=== PATIENT | female | born 1995 | race Caucasian/White ===

== ENCOUNTER → 2023-10-23 | Outpatient (CLI) | payer SELFPAY ==
[2023-10-27 20:55] LABS: HPV Reflexed? NOT INDICATED
== END | disposition home or self-care (01) ==
LOC: LABSPEC 10:33
PROVIDERS: Referring Provider Advanced Practice Midwife; Visit Provider Advanced Practice Midwife
DX: Z12.4 Encounter for screening for malignant neoplasm of cervix (principal)
CPT/HCPCS: 88175; G0145

== ENCOUNTER → 2024-04-10 | Outpatient (CLI) | payer SELFPAY | END | disposition home or self-care (01) | PROVIDERS: Visit Provider Nurse Practitioner Family | DX: N30.00 Acute cystitis without hematuria (principal) | CPT/HCPCS: 87086; 87088 ==

== ENCOUNTER → 2024-11-01 | Outpatient (CLI) | payer SELFPAY ==
[2024-11-01 11:13] LABS: Absolute Neutrophil Count 4.7 X10^3/uL (2.0-7.7); Basophil# 0.04 X10^3/uL; Basophil% 0.6 % (0-1); Eosinophil# 0.16 X10^3/uL; Eosinophils% 2.4 % (0-5); Hematocrit 38.8 % (37-47); Hemoglobin 11.5 g/dL (12.0-15.0); Lymphocyte % 20.7 % (19-41); Mean Corp Hgb Conc 29.6 g/dL (32-36); Mean Corpuscular Volume 77.8 fL (81-99); Monocyte# 0.43 X10^3/uL; Monocyte% 6.4 % (0-10); NRBC Flagged by Analyzer 0 % (0-5); Neutrophil # 4.71 X10^3/uL (2.7-7.7); Neutrophil % 69.6 % (47-70); Platelet Count 271 K/mm3 (150-450); RBC Distribution Width CV 15.1 % (11.6-14.6); RBC Distribution Width SD 42.7 fl (35.1-43.9); Red Blood Count 4.99 M/mm3 (4.2-5.4); White Blood Count 6.8 K/mm3 (4.4-11.0)
[2024-11-02 08:11] LABS: PROGESTERONE 6.9 ng/mL (.)
== END | disposition home or self-care (01) ==
LOC: BWCLAB 10:40
PROVIDERS: Referring Provider Nurse Practitioner Women's Health; Visit Provider Nurse Practitioner Women's Health
DX: N97.0 Female infertility associated with anovulation (principal)
CPT/HCPCS: 36415; 84144; 84443; 85025

== ENCOUNTER → 2024-11-10 | Outpatient (CLI) | payer SELFPAY ==
[2024-11-11 08:10] LABS: Thyroid Peroxidase AB 10 IU/mL (0-34)
== END | disposition home or self-care (01) ==
LOC: BWCLAB 10:38
PROVIDERS: PCP Internal Medicine; Referring Provider Nurse Practitioner Women's Health; Visit Provider Nurse Practitioner Women's Health
DX: N97.0 Female infertility associated with anovulation (principal)
CPT/HCPCS: 36415; 84439; 86376

== ENCOUNTER → 2024-11-17 | Outpatient (CLI) | payer SELFPAY ==
--- NOTE | 2024-11-17 14:17 | US_ITS ---
STUDY: ULTRASOUND OF THE FEMALE PELVIS - COMPLETE REASON FOR EXAM: Female, 28 years old. anovulation LMP: 11/08/2024 TECHNIQUE: Transabdominal and Transvaginal TECHNICAL QUALITY: Adequate. COMPARISON: None. FINDINGS: The uterus is retroverted and is in a midline position. The uterus measures 9.1 x 4.4 x 4.5 cm. Normal uterine cervix. The endometrium measures 13 mm in thickness, and is hyperechoic. There is no demonstrated endometrial mass. There is no demonstrated myometrial mass. I.U.D. - The patient does not have an I.U.D. The right ovary is visualized. The right ovary measures 3.6 x 2.5 x 2.1 cm. There is no right ovarian cyst or ovarian mass. There is no visualized right adnexal mass or complex lesion. There is normal arterial and normal venous vascularity. The left ovary is visualized. The left ovary measures 4.9 x 2.2 x 1.6 cm. There is no left ovarian cyst or ovarian mass. There is no visualized left adnexal mass or complex lesion. There is normal arterial and normal venous vascularity. There is no fluid in the cul-de-sac. The pre void volume of the bladder was ml. The post void volume of the bladder was ml. Polycystic ovary disease: No. US/Pelvic w/ Transvaginal IMPRESSION: Normal female pelvis. Electronically Signed: Prosper Weinstein MD at 15:00 EST ,
== END | disposition home or self-care (01) ==
LOC: US 14:16
PROVIDERS: PCP Internal Medicine; Referring Provider Nurse Practitioner Women's Health; Visit Provider Nurse Practitioner Women's Health
DX: N97.0 Female infertility associated with anovulation (principal)
CPT/HCPCS: 76830; 76856

== ENCOUNTER → 2025-01-17 | Outpatient (CLI) | payer SELFPAY ==
[2025-01-19 12:08] LABS: PROGESTERONE 12.4 ng/mL (.)
== END | disposition home or self-care (01) ==
PROVIDERS: PCP Internal Medicine; Referring Provider Nurse Practitioner Women's Health; Visit Provider Nurse Practitioner Women's Health
DX: N97.0 Female infertility associated with anovulation (principal)
CPT/HCPCS: 36415; 84144

== ENCOUNTER → 2025-02-13 | Outpatient (CLI) | payer SELFPAY ==
[2025-02-14 04:07] LABS: PROGESTERONE 13.5 ng/mL (.)
== END | disposition home or self-care (01) ==
PROVIDERS: PCP Internal Medicine; Referring Provider Nurse Practitioner Women's Health; Visit Provider Nurse Practitioner Women's Health
DX: N97.0 Female infertility associated with anovulation (principal)
CPT/HCPCS: 36415; 84144

== ENCOUNTER → 2025-03-10 | Outpatient (CLI) | payer SELFPAY ==
[2025-03-11 08:08] LABS: PROGESTERONE 10.1 ng/mL (.)
== END | disposition home or self-care (01) ==
LOC: BWCLAB 10:07
PROVIDERS: PCP Internal Medicine; Referring Provider Nurse Practitioner Women's Health; Visit Provider Nurse Practitioner Women's Health
DX: N97.0 Female infertility associated with anovulation (principal)
CPT/HCPCS: 36415; 84144

== ENCOUNTER → 2025-04-06 | Outpatient (CLI) | payer SELFPAY ==
[2025-04-06 15:55] LABS: HIV Nonreactive (Nonreactive); Hepatitis B Surface Antigen Nonreactive (Nonreactive); Rubella IgG REAC (Nonreactive); Syphilis Antibodies Nonreactive (Nonreactive)
[2025-04-09 21:06] LABS: HCV Quant. RNA PCR HCV Not Detected IU/mL (.); V-Zoster IgG (Immunity) Reactive (Non Reactive)
== END | disposition home or self-care (01) ==
LOC: LAB 13:54
PROVIDERS: PCP Internal Medicine; Referring Provider Obstetrics & Gynecology Reproductive Endocrinology; Visit Provider Obstetrics & Gynecology Reproductive Endocrinology
DX: Z00.00 Encounter for general adult medical examination without abnormal findings (principal); Z13.29 Encounter for screening for other suspected endocrine disorder; Z11.3 Encounter for screening for infections with a predominantly sexual mode of transmission; N96 Recurrent pregnancy loss; Z13.79 Encounter for other screening for genetic and chromosomal anomalies; Z11.59 Encounter for screening for other viral diseases
CPT/HCPCS: 36415; 84443; 86703; 86762; 86780; 86787; 86900; 86901; 87340; 87491; 87522; 87591

== ENCOUNTER 2025-09-01 20:19 | Day surgery (SDC) | payer SELFPAY ==
[2025-09-01 20:21] VITALS: BP 161/95; PULSE 119; RESP 22; TEMP 36.1; O2SAT 100; BMI 23.8
--- NOTE | 2025-09-01 20:25 | US_ITS ---
PROCEDURE: TRANSVAGINAL W/PREG US 09/01/2025 REASON FOR EXAM: VAG BLEEDING FIRST TRIMESTER TECHNIQUE: Procedure Code: USTVAGP Modality: US Procedure: TRANSVAGINAL W/PREG US COMPARISON: None available. FINDINGS Anteverted uterus appears normal in size and smooth in contour, measuring 9.2 x 5.4 x 4.3 cm. No discrete uterine myoma is seen. Arcuate versus septate uterine morphology. Endometrial stripe complex appears within normal limits measuring up to 1.6 cm. No intrauterine gestational sac or sac-like structure is seen to confirm an IUP. The cervix is closed. Left ovary has a normal sonographic appearance. The right ovary appears normal, however there is a large complex partially cystic and solid echogenic mass in the right adnexal region, which measures approximately up to 9.6 x 5.3 x 2.5 cm. Small amount of nonspecific free fluid in the cul-de-sac. US/Transvaginal w/Preg US IMPRESSION: No intrauterine gestational sac or sac-like structure to confirm an IUP. There is probable arcuate versus septate uterine morphology. There is a large heterogeneous partially solid and cystic right adnexal mass, w hich appears separate from the ovary. Findings are suspicious for ectopic , given the absence of an IUP. Recommend clinical correlation with serum beta HCG level, and Public Defender consultati on. Reading Location: [id number]
[2025-09-01 20:46] LABS: Hematocrit 35.2 % (37-47); Hemoglobin 12.1 g/dL (12.0-15.0); Immature Granulocytes Count 0.050 X10^3/uL (0.0-0.0); Mean Corp Hgb Conc 34.4 g/dL (32-36); Mean Corpuscular Volume 88.2 fL (81-99); Mean Platelet Vol. 10.6 fl (6.2-12.0); NRBC Flagged by Analyzer 0 % (0-5); Platelet Count 255 K/mm3 (150-450); RBC Distribution Width CV 12.4 % (11.6-14.6); RBC Distribution Width SD 40.0 fl (35.1-43.9); Red Blood Count 3.99 M/mm3 (4.2-5.4); White Blood Count 12.2 K/mm3 (4.4-11.0)
[2025-09-01 21:01] LABS: Internal QC Validated? YES +Cl - CLEAR BKGD; Record Kit Lot#, Serum Preg. 980607
[2025-09-01 21:03] LABS: Pregnancy, Serum, hCG Quali. POSITIVE Negative
[2025-09-01 21:06] LABS: AST(SGOT) 20 U/L (<=31); Alanine Aminotransfer ALT/SGPT 17 U/L (<=34); Albumin, Serum 5.0 g/dL (3.5-5.0); Alkaline Phosphatase 59 U/L (35-104); Anion Gap 14 (5-15); BUN 11 mg/dL (4-19); BUN/Creat Ratio 18.1 RATIO (10-20); Calcium,Total 9.4 mg/dL (7.6-11.0); Carbon Dioxide 22.4 mmol/L (21.0-32.0); Chloride 100 mmol/L (98-108); Estimated Creatinine Clearance 115.39 ml/min (50-250); Globulin 2.9 g/dL (2.2-4.2); Glucose 124 mg/dL (70-99); Potassium 3.6 mmol/L (3.3-5.1)
--- NOTE | 2025-09-01 21:07 | EDS_ITS ---
HPI HPI - Female History of Present Illness Chief Complaint: Vag Bld, Preg Narrative Narrative: Patient is a 29-year-old female with past medical history of anemia who presents to the emergency department the chief complaint of abdominal pain. Patient states that for the last week she has been dealing with a miscarriage which she states that her last hCG quant was around 605 she is following with TRANSIT CLERK about this. She states that the pain had been progressively worsening prompting her to come here for further evaluation management she states that she originally had worsening abdominal pain in the upper portion of her abdomen and now it is in the lower portion. Patient denies any sick contacts. [facility] Medical History Anemia Home Medications ?Medication ?Instructions ?Recorded ?Last Taken ?Type ferrous sulfate 325 mg (65 mg 150 mg PO DAILY 10/23/23 Unknown History iron) tablet (Feosol) dapsone 6 %-spironolactone 5 applic topical 11/01/24 U nknown History %-niacinamide 2 % topical cream mv-mn no.97-folic 180 mcg-dha 25 1 tab PO BID 11/01/24 Unknown History mg-herb no.293 25 mg chewable tablet (Alive Daily Support ) letrozole 2.5 mg tablet 5 mg (2 x 2.5 mg) PO DAILY # 10 tabs 02/20/25 Unknown Rx Allergy/AdvReac Type Severity Reaction Status Date / Time amoxicillin (From Augmentin) Allergy Mild Hives Verified 09/01/25 20:21 clavulanic acid (From Allergy Mild Hives Verified 09/01/25 20:21 Augmentin) Family History Grandmother Skin cancer Grandfather Skin cancer CVA (cerebral vascular accident) Father CVA (cerebral vascular accident) Hypertension Brother Hypertension Social History adopted: No household members: spouse housing: house current occupational status: employed 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 occupational exposures/hazards: Yes pets and animals: Yes pets and animals: cat(s) and dog(s) history of recent travel: No sexually active: Yes Smoking Status: Never smoker alcohol intake: current details: socially substance use type: does not use diet: gluten free caffeine: Yes deanna/sabianism: Mosque seatbelt use: always do you feel safe at home: Yes 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/[employer] ROS ROS ED ROS Narrative Constitutional: Denies any fevers, chills, headaches Eyes: Denies double vision blurry vision changes vision Cardiovascular: Denies chest pain Respiratory: Denies shortness of breath Abdomen: Complains of abdominal pain as noted above Neurological: Denies numbness, weakness, tingling Musculoskeletal: Denies back pain Skin: Denies any rashes or lesions EXAM Physical Exam Narrative Exam Narrative: General: Patient was lying in bed rest comfortably did not appear to be acute distress Head: Atraumatic, normocephalic Eyes: PERRL bilaterally, EOMI bilaterally, no conjunctival injection noted Neck: Soft, supple, trachea midline Cardiovascular: Patient tachycardic with a regular rhythm Respiratory: Clear to auscultation bilaterally Abdomen: Soft, nondistended, diffuse tenderness to palpation Extremities: +5/5 strength noted in the bilateral upper and lower extremities Neurological: Patient following commands knew that she was at [facility] year is 2024 Skin: Warm, dry, intact no rashes or lesions noted Const Vital Signs: 09/01/25 20:21 09/01/25 21:20 09/01/25 21:23 Temperature 96.9 F L 98 F 98.2 F Temperature Source Temporal Oral Oral Pulse Rate 119 H 86 83 Respiratory Rate 22 H 16 19 H Blood Pressure 161/95 H 124/90 H 131/84 H Blood Pressure Mean 117 101 99 Pulse Ox 100 99 1 Oxygen Delivery Method Room Air Room Air 09/01/25 22:00 09/01/25 23:00 09/02/25 00:00 Temperature 97.8 F 99.1 F Temperature Source Oral Oral Pulse Rate 88 90 85 Respiratory Rate 17 18 16 Blood Pressure 118/80 115/67 117/57 L Blood Pressure Mean 92 83 77 Pulse Ox 100 98 97 Oxygen Delivery Method Room Air Room Air Room Air MDM MDM MDM Narrative Medical decision making narrative: Patient is a 29-year-old female who presents to the emergency department the chief complaint of abdominal pain. On the differential diagnosis includes but not limited to ectopic , endometritis, appendicitis, cholecystitis, pancreatitis. Once the workup is obtained and reviewed she will be reevaluated. Patient be given IV fluids Zofran morphine. Patient CBC reviewed and showed a leukocytosis of 12,000, hemoglobin 12.1, plate count 255. Patient sodium is 136, potassium low at 3.6, creatinine 0.61. Patient lactic acid normal at less than 1, AST and ALT were 20 and 17 respectively. Patient's hCG quant was 390 with positive urinalysis reviewed showed no evidence of infection. Patient's transvaginal ultrasound was reviewed and showed no intrauterine gestational sac or saclike structure to confirm an IUP. There is probable arcuate versus septate uterine morphology. There is a large heterogeneous partially solid and cystic right adnexal mass which appears to be separate from the ovary findings suspicious for ectopic . Paged TRANSIT CLERK physician Dr. Logan who is currently in a TRANSIT CLERK emergency and she states that she will call back when she is done with the case. This will be signed out to overnight provider to discuss with her and follow-up on ultimate disposition see note for addendum details Lab Data Labs: Laboratory Results - last 24 hr 09/01/25 09/01/25 09/01/25 20:37 20:55 21:46 WBC 12.2 H RBC 3.99 L Hgb 12.1 Hct 35.2 L MCV 88.2 MCH 30.3 MCHC 34.4 RDW Std Deviation 40.0 RDW Coeff of Jayson 12.4 Plt Count 255 MPV 10.6 Immature Gran % (Auto) 0.400 Neut % (Auto) 80.0 H Lymph % (Auto) 13.6 L Barton % (Auto) 4.7 Eos % (Auto) 1.1 Baso % (Auto) 0.2 Absolute Neuts (auto) 9.7 H Absolute Lymphs (auto) 1.66 Nucleated RBC % 0 Sodium 136 Potassium 3.6 Chloride 100 Carbon Dioxide 22.4 Anion Gap 14 BUN 11 Creatinine 0.61 L Estim Creat Clear Calc 115.39 Est GFR (MDRD) Non-Af 122 BUN/Creatinine Ratio 18.1 Glucose 124 H Lactic Acid < 1.0 Calcium 9.4 Total Bilirubin 0.48 AST 20 ALT 17 Alkaline Phosphatase 59 Total Protein 7.9 Albumin 5.0 Globulin 2.9 Albumin/Globulin Ratio 1.7 HCG, Quant 390 H Serum , Qual POSITIVE Urine Color Straw Urine Clarity Clear Urine pH 6.0 Ur Specific [place] 1.010 Urine Protein 15 H Urine Glucose (UA) Normal Urine Ketones 15 H Urine Occult Blood 50 H Urine Nitrite Negative Urine Bilirubin Negative Urine Urobilinogen Normal Ur Leukocyte Esterase Negative Urine RBC 0-5 SEEN Urine WBC 0-5 SEEN Ur Squamous Epith Cells 0-5 SEEN Ur Transition Epith Cell 0-5 SEEN Urine Bacteria 0 SEEN Urine Mucus 0 SEEN Radiography Diagnostic Testing: Clinical Impression(s) from Imaging Studies Obstetrics Ultrasound 09/01/25 20:25 IMPRESSION: No intrauterine gestational sac or sac-like structure to confirm an IUP. There is probable arcuate versus septate uterine morphology. There is a large heterogeneous partially solid and cystic right adnexal mass, which appears separate from the ovary. Findings are suspicious for ectopic , given the absence of an IUP. Recommend clinical correlation with serum beta HCG level, and Banquet Food Server consultation. Reading Location: [facility] Discharge Plan Triage Chief Complaint: Vag Bld, Preg ED Provider: Dilshad Jones Dx/Rx/DC Orders Clinical Impression: Abdominal pain, History of anemia Prescriptions: No Action ferrous sulfate [Feosol] 325 mg (65 mg iron) tablet 150 mg PO DAILY Alive Daily Support 180 mcg-25 mg- 25 mg tablet,chewable 1 tab PO BID [id number] 6-5-2 % cream topical letrozole 2.5 mg tablet 5 mg PO DAILY Qty: 10 0RF Rx Instructions: Take cycle days 3-7 Primary Care Provider: Dania Whitfield Referrals: Dania Whitfield DO [Primary Care Provider, Internal Medicine] Print Language: Barbadian
[2025-09-01 21:12] LABS: Mucous, Urine 0 SEEN /hpf (<or=2+)
[2025-09-01 21:20] VITALS: BP 124/90; PULSE 86; RESP 16; TEMP 36.6; O2SAT 99
[2025-09-01 21:23] VITALS: BP 131/84; PULSE 83; RESP 19; TEMP 36.8; O2SAT 1
[2025-09-01] MEDS: 0.9% Normal Saline (1000mL) 1,000 ML 999 ML IV ×2 (21:45→23:12)
[2025-09-01 21:46] LABS: Color, Urine Straw (Yellow); Glucose, Dipstick Normal (Normal); Ketone-Dipstick 15 mg/dl (Negative); Leukocyte Esterase-Dipstick Negative /ul (Negative); Nitrite-Dipstick Negative (Negative); Occult Blood-Urine 50 /ul (Negative); Protein-Dipstick 15 mg/dl (Negative); Specific Gravity, Urine 1.010 (1.002-1.030); Urine Bilirubin Dipstick Negative (Negative)
[2025-09-01 22:00] VITALS: BP 118/80; PULSE 88; RESP 17; TEMP 36.6; O2SAT 100
[2025-09-01 22:28] LABS: hCG Titer Quant., Serum 390 mIU/mL (<9 non-preg)
[2025-09-01 22:30] LABS: Red Blood Cells-Urine 0-5 SEEN /hpf (0-5); Squamous Epithelial Cells - UA 0-5 SEEN /hpf (5-10); Transitional Epithelial - Ur 0-5 SEEN /hpf (0-5)
[2025-09-01 23:00] VITALS: BP 115/67; PULSE 90; RESP 18; TEMP 37.3; O2SAT 98
[2025-09-02] VITALS (17 sets, daily range): BP systolic 109–136; BP diastolic 57–89; PULSE 75–106; RESP 15–18; TEMP 37–37.7; O2SAT 93–100; BMI 23.8; BMI 24.7
--- NOTE | 2025-09-02 02:29 | ED.RN ---
report called to ac. pt xferred to or
--- NOTE | 2025-09-02 02:31 | HP.PCM.OB_ITS ---
HPI - General HPI Narrative MECCA FRANKLIN, is a 29 y/o @ unknown gestational age who presents to [facility] ER with vaginal bleeding and a home positive test. She has been seeing an [facility] doctor and has tried IUI and clomid. This she states was spontaneous. She did have an HSG that was normal earlier this year . Ultrasound shows the following: FINDINGS Anteverted uterus appears normal in size and smooth in contour, measuring 9.2 x 5.4 x 4.3 cm. No discrete uterine myoma is seen. Arcuate versus septate uterine morphology. Endometrial stripe complex appears within normal limits measuring up to 1.6 cm. No intrauterine gestational sac or sac-like structure is seen to confirm an IUP. The cervix is closed. Left ovary has a normal sonographic appearance. The right ovary appears normal, however there is a large complex partially cystic and solid echogenic mass in the right adnexal region, which measures approximately up to 9.6 x 5.3 x 2.5 cm. Small amount of nonspecific free fluid in the cul-de-sac. US/Transvaginal w/Preg US IMPRESSION: No intrauterine gestational sac or sac-like structure to confirm an IUP. There is probable arcuate versus septate uterine morphology. There is a large heterogeneous partially solid and cystic right adnexal mass, which appears separate from the ovary. Findings are suspicious for ectopic , given the absence of an IUP. Recommend clinical correlation with serum beta HCG level, and Curriculum And Assessment Coordinator consultation. [facility] Medical History Anemia Home Medications ?Medication ?Instructions ?Recorded ?Last Taken ?Type ferrous sulfate 325 mg (65 mg 150 mg PO DAILY 10/23/23 Unknown History iron) tablet (Feosol) dapsone 6 %-spironolactone 5 applic topical 11/01/24 U nknown History %-niacinamide 2 % topical cream mv-mn no.97-folic 180 mcg-dha 25 1 tab PO BID 11/01/24 Unknown History mg-herb no.293 25 mg chewable tablet (Alive Daily Support ) letrozole 2.5 mg tablet 5 mg (2 x 2.5 mg) PO DAILY # 10 tabs 02/20/25 Unknown Rx Allergy/AdvReac Type Severity Reaction Status Date / Time amoxicillin (From Augmentin) Allergy Mild Hives Verified 09/01/25 20:21 clavulanic acid (From Allergy Mild Hives Verified 09/01/25 20:21 Augmentin) Family History Grandmother Skin cancer Grandfather Skin cancer CVA (cerebral vascular accident) Father CVA (cerebral vascular accident) Hypertension Brother Hypertension Social History adopted: No household members: spouse housing: house current occupational status: employed 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 occupational 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/hazards: Yes pets and animals: Yes pets and animals: cat(s) and dog(s) history of recent travel: No sexually active: Yes Smoking Status: Never smoker alcohol intake: current details: socially substance use type: does not use diet: gluten free caffeine: Yes deanna/islam: Rastafarian seatbelt use: always do you feel safe at home: Yes 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 Constitutional Constitutional: Denies change in weight, fatigue, fever(s), headache(s), poor appetite or weakness Eyes Eyes: Denies blurry vision, change in vision, seeing flashes or spots in vision ENT HEENT: Denies dizziness, headache(s), loss taste/smell or sore throat Cardiovascular Cardiovascular: Denies chest pain, dizziness, dyspnea, irregular heart rhythm, leg edema, palpitations or vomiting Respiratory/Chest Respiratory/Chest: Denies chest tightness, cough, dyspnea or breast pain Gastrointestinal Gastrointestinal: Denies anorexia, constipation, cramping, diarrhea, hemorrhoids, vomiting or weight changes Genitourinary Genitourinary: Denies dysuria, flank pain, genital lesions, urinary frequency or urinary urgency Musculoskeletal Musculoskeletal: Denies back pain, difficulty walking, joint pain, limited range of motion, muscle cramps or numbness Integumentary Integumentary: Denies lesions or unusual bruising Neurologic Neurologic: Denies abnormal movements, abnormal speech, dizziness, numbness, seizure-like activity or syncope Psychiatric Psychiatric: Denies anxiety, behavioral changes, change in appetite, change in libido, cognitive impairment, confusion, depression, difficulty concentrating, hallucinations or suicidal thoughts Endocrine Endocrinology: Denies excessive sweating, polydipsia or polyuria Hematologic/Lymphatic Hematologic/Lymphatic: Denies easy bleeding, easy bruising or lymphadenopathy Allergic/Immunologic Allergic/Immunologic: Denies itchy eyes, lip swelling, seasonal rhinorrhea, rhinitis, throat swelling, tongue swelling, eczemia, wheezing or asthma Vital Signs Vital Signs Vital Signs: 09/01/25 20:21 09/01/25 21:20 09/01/25 21:23 Temperature 96.9 F L 98 F 98.2 F Temperature Source Temporal Oral Oral Pulse Rate 119 H 86 83 Respiratory Rate 22 H 16 19 H Blood Pressure 161/95 H 124/90 H 131/84 H Blood Pressure Mean 117 101 99 Pulse Ox 100 99 1 Oxygen Delivery Method Room Air Room Air 09/01/25 22:00 09/01/25 23:00 09/02/25 00:00 Temperature 97.8 F 99.1 F Temperature Source Oral Oral Pulse Rate 88 90 85 Respiratory Rate 17 18 16 Blood Pressure 118/80 115/67 117/57 L Blood Pressure Mean 92 83 77 Pulse Ox 100 98 97 Oxygen Delivery Method Room Air Room Air Room Air 09/02/25 00:00 09/02/25 01:00 09/02/25 02:00 Temperature 99.3 F H 99.1 F Temperature Source Oral Oral Pulse Rate 87 85 106 H Respiratory Rate 18 18 15 Blood Pressure 112/58 L 112/58 L 136/78 H Blood Pressure Mean 76 76 97 Pulse Ox 97 98 97 Oxygen Delivery Method Room Air Room Air Room Air 09/02/25 02:27 Temperature 99.0 F Temperature Source Pulse Rate 106 H Respiratory Rate 15 Blood Pressure 136/78 H Blood Pressure Mean 97 Pulse Ox 97 Oxygen Delivery Method Weight Weight: 139 lb Body Mass Index (BMI) 23.8 Physical Exam Const alert, oriented x3, no apparent distress and healthy appearing General Appearance: cooperative; Negative for anxious HEENT normocephalic Face and Sinus: normal facial exam Eyes EOMs intact bilaterally and no scleral icterus General Eye: normal appearance of both eyes Neck full ROM and supple Lymph Lymphatic: no lymphadenopathy noted Resp normal respiratory effort Effort and Inspection: able to speak in complete sentences GI soft to palpation Palpation: soft Rectal Exam: other Other Details: lower abdomen diffusely tender bilaterally Extremity normal to inspection, full ROM and no clubbing, cyanosis or edema General Extremity: Negative for calf tenderness or edema Skin Lesions: no lesions Rashes: no rashes Psych mental status grossly normal Labs Labs Labs: Blood Type B POSITIVE Hct, (37-47) 35.2 % L Hgb, (12.0-15.0) 12.1 g/dL Obstetrics Ultrasound Syphilis Total Ab, (Nonreactive) Nonreactive VZV IgG Antibody, (Non Reactive) Reactive Rubella IgG Antibody, (Nonreactive) REAC Hep Bs Antigen, (Nonreactive) Nonreactive HIV 1&2 Antibody, (Nonreactive) Nonreactive Assessment & Plan (1) Ectopic : PLAN: After discussing the patient's diagnosis and treatment plan options, patient wishes to proceed with surgical management. I have discussed with the patient the risks, benefits, and alternatives of the procedure which include but are not limited to risks of anesthesia, bleeding, infection, possible damage to bowel, bladder, or surrounding vasculature which could lead to additional surgery to evaluate any complications. Patient agrees to procedure and wishes to proceed. ACOG/uptodate references given for additional information regarding procedure. plan for laparoscopic evacuation of hemoperitoneum and treatment of ectopic . I have discussed with the patient that she will likely have a suction, irrigation of the clot and we will find where the ectopic is. If located in a fallopian tube then we will need to remove that tube. If located on an ovary then we may need to remove that ovary.
--- NOTE | 2025-09-02 02:33 | PCM.PRE.AN2 ---
ASA Classification* ASA Classification ASA Classification: 2 and E Assessment & Plan Anesthesia* Anesthesia Assessment Anesthesia Assessment: Discussed sedation and/or anesthesia options, risks, benefits, and alternatives with patient/parents/legal guardian/POA. Questions invited. The patient/parents/legal guardian/POA seems to understand and agrees to proceed with anesthesia plan. Reviewed the physical assessment, medical history, allergy history and patient home medications list prior to surgery/procedure/anesthetic and documented any changes. Performed airway and anesthesia risk assessments. Anesthesia Type Anesthesia Type: General History Source History Obtained from:: Patient and Chart Anesthesia Focused Assessment* Temperature: 99.0 F Pulse Rate: 106 Blood Pressure: 136/78 Respiratory Rate: 15 Pulse Ox: 97 Oxygen Delivery Method: Room Air Airway Assessment Mouth opens: >3 cm Mallampati Score: II Teeth Condition: Intact Neck Range of motion (ROM): Full ROM Labs Anesthesia Preop lab: CBC WBC, (4.4-11.0) 12.2 K/mm3 H 09/01/25, 20:37 RBC, (4.2-5.4) 3.99 M/mm3 L 09/01/25, 20:37 Hgb, (12.0-15.0) 12.1 g/dL 09/01/25, 20:37 Hct, (37-47) 35.2 % L 09/01/25, 20:37 Plt Count, (150-450) 255 K/mm3 09/01/25, 20:37 CHEMISTRY Potassium, (3.3-5.1) 3.6 mmol/L 09/01/25, 20:37 Sodium, (133-145) 136 mmol/L 09/01/25, 20:37 Phosphorus, (2.7-4.5) 3.5 mg/dL 08/14/25, 08:15 BUN, (4-19) 11 mg/dL 09/01/25, 20:37 Creatinine, (0.70-1.20) 0.61 mg/dL L 09/01/25, 20:37 Glucose, (70-99) 124 mg/dL H 09/01/25, 20:37 TSH, (0.300-4.200) 2.290 uIU/mL 04/06/25, 13:56 COAG HCG, Quant, (<9 non-preg) 390 mIU/mL H 09/01/25, 20:37 Pre-Assessment Diagnosis/Proposed Procedure Planned Operative Procedure(s): Diagnostic laparoscopy Anesthesia History Anesthesia History - marketing systems analyst: Anesthesia History - marketing systems analyst Hx Hospitalization Any Problems With Anesthesia No 09/02/25 02:22 Cholinesterase deficiency No 09/02/25 02:22 You/Your Family Experience No 09/02/25 02:22 fever (hyperthermia) with Relationship Recent Exposure to Contagious No 09/02/25 02:22 Disease Does patient have nerve No 09/02/25 02:22 stimulator Patient instructed to have device shut off --Does patient have Pacemaker or ICD? When Was Last Pacemaker Check QUESTION #4 FULL TEXT: You/Your Family Experience fever (hyperthermia) with Anesthesia Last Oral Intake Last Oral intake: Last Oral Intake NPO since Meds taken in AM with sips of water? Meds patient instructed to take am of surgery Any additional information?: Yes NPO since: 19:30 PONV PONV - marketing systems analyst: PONV - marketing systems analyst Female HX of Motion Sickness HX of N/V After Surgery Non-Smoker Duration of Surgery greater than 60 minutes Number of Risk Factors PONV Score Height & Weight Height & Weight: Anesthesia: Height & Weight Height 5 ft 4 in 09/02/25 02:22 Weight: 63.049 kg 09/02/25 02:22 Body Mass Index (BMI) 23.8 09/02/25 02:22 Respiratory Assessment Respiratory Assessment - marketing systems analyst: Respiratory Tract Infection Hx - marketing systems analyst Hx Respiratory Tract Infection No 09/02/25 02:22 STOP Sleep Apnea STOP Sleep Apnea - marketing systems analyst: STOP Sleep Apnea - marketing systems analyst Hx Hypertension No 09/02/25 02:22 Hx Sleep Apnea No 09/02/25 02:22 CPAP BIPAP Do you snore loudly (louder No 09/02/25 02:22 than talking or can be heard Do you often feel tired/ No 09/02/25 02:22 fatigued/ sleepy during daytime? Has anyone observed you stop No 09/02/25 02:22 breathing during sleep? STOP Results Negative 09/02/25 02:22 QUESTION #5 FULL TEXT : Do you snore loudly (louder than talking or can be heard through closed doors)? Tobacco Use History Tobacco Use History - marketing systems analyst: Tobacco Use History - marketing systems analyst Tobacco Use Smoking Status Never smoker 09/02/25 02:22 Hx Tobacco Use Years Smoking Packs Smoked per Day Smoking Cessation Date was within the last 15 years Hx Smoking Cessation Date Hx Smoking Cessation Counseling Hematologic Medial History Hematologic Hx - marketing systems analyst: Hematologic Medical Hx - finish specialist Hx of Blood Transfusion Hx of Transfusion in last 3 Months Date of Last Transfusion (if within last 3 months) Ever experience any problems with transfusion(s)? Specify any problems Hx of Preganancy in last 3 Months Nurse Filling Out Transfusion & Questions: Date: Time: Patient unable to answer at this time (ie. confused, unrespo /Reproduction History /Reproductive History - marketing systems analyst: /Reproductive Hx- marketing systems analyst Hx Now Yes 09/01/25 20:27 Gestational Age (in weeks): EDC: Hx 0 09/01/25 20:27 Hx Para Hx Section SAB No 09/01/25 20:21 PFSH Medical History Anemia Home Medications ?Medication ?Instructions ?Recorded ?Last Taken ?Type ferrous sulfate 325 mg (65 mg 150 mg PO DAILY 10/23/23 Unknown History iron) tablet (Feosol) dapsone 6 %-spironolactone 5 applic topical 11/01/24 Unknown History %-niacinamide 2 % topical cream mv-mn no.97-folic 180 mcg-dha 25 1 tab PO BID 11/01/24 Unknown History mg-herb no.293 25 mg chewable tablet (Alive Daily Support ) letrozole 2.5 mg tablet 5 mg (2 x 2.5 mg) PO DAILY #10 tabs 02/20/25 Unknown Rx Allergy/AdvReac Type Severity Reaction Status Date / Time amoxicillin (From Augmentin) Allergy Mild Hives Verified 09/01/25 20:21 clavulanic acid (From Allergy Mild Hives Verified 09/01/25 20:21 Augmentin) Family History Grandmother Skin cancer Grandfather Skin cancer CVA (cerebral vascular accident) Father CVA (cerebral vascular accident) Hypertension Brother Hypertension Social History adopted: No household members: spouse housing: house current occupational status: employed 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
--- NOTE | 2025-09-02 02:48 | PCM.DC ---
Discharge Instructions DC O2, CPAP, BIPAP needs Home O2 Discharge instructions: No Dressing / Incision Discharge Activity: Return to Normal Activity, May Not Drive (for two weeks or while taking narcotic pain medications.), May Shower and May Take a Tub Bath (in 7 days) May resume sexual activity in: 1 week Weight Bearing Status: Full weight bearing Dressing / Incision Call your doctor if you observe: Using more than 1 pad per hour, Shortness of breath, Chest pain and Uncontrolled pain Suture Line Care: Avoid Pulling/Pushing and Avoid Pinching/Bending Remove Dressing in: 1 week (if present) Cleanse incision/area with: Soap & Water and Keep Dressing Clean & Dry Follow Up Care Please Follow Up With: Luz Elena Bush DO When: Call to make an appointment with your doctor for a follow up incision check in 1-2 weeks. Test Results: Test results from this visit will be discussed in further detail at your follow-up appointment, if applicable. Discharge Plan Admission Primary Reason for Your Visit: laparoscopy to treat ectopic Attending Provider: Luz Elena Bush Primary Care Provider: Dania Whitfield Instructions Print Language: Italian Discharge Orders/Prescriptions Prescriptions: New ibuprofen 800 mg tablet 800 mg PO Q8H PRN (Reason: pain) Qty: 30 0RF oxycodone-acetaminophen [Percocet] 5-325 mg tablet 1 tab PO Q4H PRN (Reason: pain) 7 Days Qty: 10 0RF Continued ferrous sulfate [Feosol] 325 mg (65 mg iron) tablet 150 mg PO DAILY Alive Daily Support 180 mcg-25 mg- 25 mg tablet,chewable 1 tab PO BID Held nnulqpg-pwnxbmwthtotmz-lkmjue 6-5-2 % cream topical Hold Instructions: Resume on 09/08/25. Discontinued letrozole 2.5 mg tablet 5 mg PO DAILY Qty: 10 0RF Rx Instructions: Take cycle days 3-7 Referrals / Follow Up: Dania Whitfield DO [Primary Care Provider, Internal Medicine] Disposition Disposition (needs filled in before D/C Order can be placed): Home, Self Care
[2025-09-02] MEDS: Lidocaine 1% (5 ml sdv) 5 ML Vial 3 ML IV (02:51)
--- NOTE | 2025-09-02 03:00 | FAL_PTH ---
PATIENT: MECCA FRANKLIN LOC: [facility] [place] U#:[id number] AGE/SX: 29/F ROOM: RE09/02/[address]: Dr. Luz Elena Bush DO : 1995 BED: DIS: 09/02/2025 SPEC #: [id number] RECD: 09/04/25 10:10 STATUS: JUANA RENATO #: [id number] ARIELLA: 09/02/25 03:[address]: Luz Elena Bush DEPT: SURGICAL PATHOLOGY RECD BY: Henry Malagon ENTERED: 09/04/25 11:24 SP TYPE: ECTOPIC OTHR DR: Dr. Dania Whitfield, Tissues: A - ECTOPIC PREG Procedures: Surgery Specimen Level IV HEADER OPERATION: Laparoscopic, removal ectopic PRE-OP DIAGNOSIS: Ectopic TISSUE SUBMITTED: A- Right ectopic MICROSCOPIC DIAGNOSIS A. Right fallopian tube, resection: * Focal luminal dilatation with trophoblast, hemorrhage and decidual change, consistent with products of conception. MICROSCOPIC DESCRIPTION Slides are reviewed. GROSS DESCRIPTION A. Received in formalin labeled with the patient's name and date of . Designated as right ectopic is a 6.7 x 2.0 cm purple-brennan, dilated but grossly intact, fimbriated fallopian tube admixed with a 4.2 x 3.4 x 1.4 cm aggregate of clotted blood. Sectioning reveals focally congested and diffusely edematous cut surfaces. No definitive tissues are grossly identified. Entirely submitted in 10 cassettes as follows: A1-A3: Fallopian tube fimbriaA4-A6: Fallopian tube [id number]: Blood clot SC 09/04/2025 CPT:70350
--- NOTE | 2025-09-02 03:48 | OP.PCM_ITS ---
Multi Select Codes Urinary/Genital Urinary/Genital CPT Codes: 02553 Treat ectopic lapro w/ salpingectomy Operative Report (Standard) Operative Information Date of Procedure: 09/02/25 Pre-Operative Diagnosis: right fallopian tube ruptured ectopic, large hemoperitoneum Post-Operative Diagnosis: right fallopian tube ruptured ectopic, large hemoperitoneum Surgery/Procedure Performed: laparoscopic left salpingectomy and evacuation of large hemoperitoneum avionics systems integration specialist: Yes Egg Separator: Redd Miranda Tasks completed by surgical first assistant: Closing, Trocar and Other (holding and maneuvering camera ) Additional assistant at surgery?: No Type of Anesthesia: General RN Documented Start/Stop Times: Operation Date: 09/02/25 03:00 Case Time Anesthesia Start 09/02/25 02:40 Into Room 09/02/25 02:40 Procedure Start 09/02/25 03:11 Procedure Start Time: 02:40 Procedure Stop Time: 03:54 Select all DRAINS/GRAFTS/IMPLANTS that apply: None Estimated Blood Loss: 500cc Specimen collected: Yes Description of specimen(s) removed: right fallopian tube Description of surgery: The patient was taken in the operating room and was placed under general anesthesia was prepped and draped in normal sterile fashion in the dorsal lithotomy position. Bladder was drained of clear urine and SCDs were on preoperatively. A sponge stick was placed in the vagina. Attention was then turned to the abdominal portion of the procedure and the umbilicus was elevated with towel clamps and injected with Marcaine and after a 5 mm incision was made and a 5 mm trocar was inserted into the abdomen under direct visualization. The abdomen was insufflated with CO2 gas and a 5 mm optical trocar was placed under direct visualization. A left lower quadrant 5 mm port and a 5 mm port suprapubically were placed under direct visualization. Uterus was well visualized and upon inspection of the pelvis and ectopic was seen in the left fallopian tube which was ruptured open and bleeding. A large amount of blood was noted in the cul-de-sac and the gutters and around the liver.. Using a LigaSure device the mesosalpinx was transected and the fallopian tube removed including the ectopic and removed through the umbilical port site that was enlarged to allow passage of a laparoscopic bag. Further irrigation was performed until most of the blood was evacuated. Excellent hemostasis was noted in the pelvis and the port site was closed through the fascia using a William Th ompson with an 0 Vicryl. Liver and upper abdomen were visualized notably within normal limits and no other gross abnormalities were seen in the abdomen. All instruments removed from the abdomen after gas was desufflated. Port sites were closed with 3-0 Monocryl Steri's and op sites were applied. All instruments removed from the vagina and patient was awoken and taken recovery in stable condition. Surgical Findings: Right ruptured ectopic large hemoperitoneum Complications Complications: No Admit VTE Documentation VTE Present on Admission: No VTE Mechan Device Prophylaxis: [facility] VTE Pharm Prophylaxis ordered?: No
[2025-09-02] MEDS: fentaNYL 100 MCG/2 ML Ampul IV (04:13)
--- NOTE | 2025-09-02 04:13 | PCM.POST.ANE ---
Anesthesia: Postop Eval I Current Vital Signs Temperature: 99.8 F Pulse Rate: 89 Blood Pressure: 129/89 Respiratory Rate: 16 Pulse Ox: 94 Oxygen Delivery Method: Room Air Assessment Airway patent: Yes Spontaneous unlabored respirations: Yes Mental status: Awake and Calm nausea: Yes Vomiting: No Anesthesia Complication: No Fluid Hydration Crystalloid volume administer (ml): 600 Total IV fluid infused: 600 Progress Note Anesthesia document: Postop Eval 1 completed: Yes
--- NOTE | 2025-09-02 04:36 | PCM.POSTANE2 ---
Anesthesia Postop Eval I Sum Postop Eval Completion status Anesthesia document: Postop Eval 1 completed: Yes Anesthesia Postop Eval I Summary Anesthesia Postop Eval I Summary: Anesthesia Postop Eval I: Assessment Summary Airway patent Yes 09/02/25 04:17 Spontaneous unlabored Yes 09/02/25 04:17 respirations Mental status Awake,Calm 09/02/25 04:17 nausea Yes 09/02/25 04:17 Vomiting No 09/02/25 04:17 Anesthesia Postop Eval I: Fluid Summary Crystalloid volume administer 600 09/02/25 04:17 (ml) Colloids volume administered ( ml) Blood Product volume administered (ml) Total IV fluid infused 600 09/02/25 04:17 Anesthesia Postop Eval I: Summary Notes Anesthesia Complication No 09/02/25 04:17 Anesthesia Complication Comment: Post-operative progress note Anesthesia: Postop Eval II Evaluation Mental status: Awake and Calm Pain Level: 3 nausea: No Vomiting: No Complications Anesthesia Complication: No
[2025-09-02] MEDS: Lactated Ringers 1,000 ML 100 ML IV (06:07)
[2025-09-02 06:27] LABS: Hematocrit 28.5 % (37-47); Hemoglobin 9.6 g/dL (12.0-15.0); Immature Granulocytes Count 0.050 X10^3/uL (0.0-0.0); Mean Corp Hgb Conc 33.7 g/dL (32-36); Mean Corpuscular Volume 91.6 fL (81-99); Mean Platelet Vol. 10.7 fl (6.2-12.0); NRBC Flagged by Analyzer 0 % (0-5); POSITIVE DIFFERENTIAL YES; Platelet Count 176 K/mm3 (150-450); RBC Distribution Width CV 12.5 % (11.6-14.6); RBC Distribution Width SD 42.1 fl (35.1-43.9); Red Blood Count 3.11 M/mm3 (4.2-5.4); White Blood Count 13.7 K/mm3 (4.4-11.0)
--- NOTE | 2025-09-02 12:00 | PCM.PN.OB ---
Subjective Subjective Patient is laying in bed sleeping but awakes easily. States that she had some rest overnight. States that she has some continued upper abdominal pain in the epigastric region that started before surgery but is very dull and overall feels better. She denies chest pain shortness of breath or dizziness but does feel tired. We discussed that her hemoglobin dropped but not into a critical range and if she felt better today she could go home after lunch Objective Data Objective Data Vital Signs: Vital Signs Temp Pulse Resp BP Pulse Ox O2 Del Method O2 Flow Rate 98.7 F 86 16 130/70 H 98 Room Air 2 09/02/25 09:37 09/02/25 09:37 09/02/25 09:37 09/02/25 09:37 09/02/25 09:37 09/02/25 09:37 09/02/25 07:46 Oxygen Flow Rate (L/min) 2 Oxygen Delivery Method Room Air Weight: 144 lb 2.917 oz Body Mass Index (BMI) 24.7 Intake & Output: Intake and Output for Last 24 Hours 08/31/25 09/01/25 09/02/25 23:59 23:59 23:59 Intake Total 1000 / 1000 1250 / 1250 Output Total 1400 / 1400 Balance 1000 / 1000 -150 / -150 Lab / Micro Data 09/02/25 06:20 09/01/25 20:37 Labs: Laboratory Results - last 24 hr 09/01/25 20:37: WBC 12.2 H, RBC 3.99 L, Hgb 12.1, Hct 35.2 L, MCV 88.2, MCH 30.3, MCHC 34.4, RDW Std Deviation 40.0, RDW Coeff of Jayson 12.4, Plt Count 255, MPV 10.6, Immature Gran % (Auto) 0.400, Neut % (Auto) 80.0 H, Lymph % (Auto) 13.6 L, [place] % (Auto) 4.7, Eos % (Auto) 1.1, Baso % (Auto) 0.2, Absolute Neuts (auto) 9.7 H, Absolute Lymphs (auto) 1.66, Nucleated RBC % 0, Sodium 136, Potassium 3.6, Chloride 100, Carbon Dioxide 22.4, Anion Gap 14, BUN 11, Creatinine 0.61 L, Estim Creat Clear Calc 115.39, Est GFR (MDRD) Non-Af 122, BUN/Creatinine Ratio 18.1, Glucose 124 H, Calcium 9.4, Total Bilirubin 0.48, AST 20, ALT 17, Alkaline Phosphatase 59, Total Protein 7.9, Albumin 5.0, Globulin 2.9, Albumin/Globulin Ratio 1.7, HCG, Quant 390 H, Serum , Qual POSITIVE 09/01/25 20:55: Urine Color Straw, Urine Clarity Clear, Urine pH 6.0, Ur Specific [place] 1.010, Urine Protein 15 H, Urine Glucose (UA) Normal, Urine Ketones 15 H, Urine Occult Blood 50 H, Urine Nitrite Negative, Urine Bilirubin Negative, Urine Urobilinogen Normal, Ur Leukocyte Esterase Negative, Urine RBC 0-5 SEEN, Urine WBC 0-5 SEEN, Ur Squamous Epith Cells 0-5 SEEN, Ur Transition Epith Cell 0-5 SEEN, Urine Bacteria 0 SEEN, Urine Mucus 0 SEEN 09/01/25 21:46: Lactic Acid < 1.0 09/02/25 06:20: WBC 13.7 H, RBC 3.11 L, Hgb 9.6 L, Hct 28.5 L, MCV 91.6, MCH 30.9, MCHC 33.7, RDW Std Deviation 42.1, RDW Coeff of Jayson 12.5, Plt Count 176, MPV 10.7, Immature Gran % (Auto) 0.400, Neut % (Auto) 93.9 H, Lymph % (Auto) 4.3 L, [place] % (Auto) 1.2, Eos % (Auto) 0.1, Baso % (Auto) 0.1, Absolute Neuts (auto) 12.9 H, Absolute Lymphs (auto) 0.59 L, Nucleated RBC % 0 Radiography Diagnostic Testing: Radiology Impression Obstetrics Ultrasound 09/01/25 20:25 IMPRESSION: No intrauterine gestational sac or sac-like structure to confirm an IUP. There is probable arcuate versus septate uterine morphology. There is a large heterogeneous partially solid and cystic right adnexal mass, which appears separate from the ovary. Findings are suspicious for ectopic , given the absence of an IUP. Recommend clinical correlation with serum beta HCG level, and Optometrist Assistant consultation. Reading Location: [id number] Constitutional Constitutional: Denies fever(s), headache(s) or poor appetite Cardiovascular Cardiovascular: Reports as per HPI; Denies abdominal bloating or chest pain Respiratory/Chest Respiratory/Chest: Denies chest tightness or dyspnea Gastrointestinal Gastrointestinal: Reports as per HPI; Denies belching or bloating Genitourinary Genitourinary: Denies abdominal discomfort, burning urination or flank pain Musculoskeletal Musculoskeletal: Reports none Integumentary Integumentary: Reports none Neurologic Neurologic: Reports none Psychiatric Psychiatric: Reports none Physical Exam Const alert, oriented x3 and no apparent distress HEENT normocephalic Neck full ROM Resp normal air movement GI soft to palpation, non-tender and non-distended; Negative for hepatosplenomegaly GI Narrative: Incisions are clean dry and intact Extremity normal to inspection Assessment & Plan (1) Ectopic : PLAN: Post op day #0 status post emergent laparoscopy and evacuation of 500 cc of hemoperitoneum repair of ruptured ectopic on the right fallopian tube with removal of the fallopian tube. Patient is doing well today ambulating and eating she would like to go home after lunch today. Prescriptions for Percocet and ibuprofen were sent to the [facility] pharmacy she will follow-up with me in 2 weeks
== END 2025-09-02 13:10 | disposition home or self-care (01) ==
LOC: ED 09-02 02:07 → SDC 09-02 02:09 → AC 09-02 02:10 → MS3 09-02 04:41
PROVIDERS: Emergency Provider Emergency Medicine; PCP Internal Medicine; Visit Provider Obstetrics & Gynecology
PROC: 10T24ZZ Resection of Products of Conception, Ectopic, Percutaneous Endoscopic Approach (ICD-10-PCS; CPT 59150; principal; 2025-09-02 02:45)
DX: O00.102 Left tubal pregnancy without intrauterine pregnancy (principal); K66.1 Hemoperitoneum; O99.019 Anemia complicating pregnancy, unspecified trimester; O99.619 Diseases of the digestive system complicating pregnancy, unspecified trimester; D64.9 Anemia, unspecified; R10.10 Upper abdominal pain, unspecified; O99.891 Other specified diseases and conditions complicating pregnancy
CPT/HCPCS: 59151; 00840; 76817; 80053; 81001; 83605; 84702; 84703; 85025; 87040; 87086; 87088; 88305; 99283; A4216; J2405

== ENCOUNTER → 2025-09-19 | Outpatient (CLI) | payer SELFPAY ==
[2025-09-19 14:15] LABS: hCG Titer Quant., Serum < 1 mIU/mL (<9 non-preg)
== END | disposition home or self-care (01) ==
LOC: LAB 12:26
PROVIDERS: PCP Internal Medicine; Referring Provider Obstetrics & Gynecology; Visit Provider Obstetrics & Gynecology
DX: O00.90 Unspecified ectopic pregnancy without intrauterine pregnancy (principal)
CPT/HCPCS: 36415; 84702

== ENCOUNTER → 2025-10-05 | Outpatient (CLI) | payer SELFPAY ==
--- NOTE | 2025-10-05 11:54 | RAD_ITS ---
PROCEDURE: SALPINGOGRAM 10/05/2025 REASON FOR EXAM: INFERTILITY Prior right salpingostomy due to recent ectopic . TECHNIQUE: Procedure Code: RADSAL Modality: DX Procedure: SALPINGOGRAM. A hysterosalpingogram was performed by the chief creative officer. Fluoroscopy: 2 minutes and 2 seconds. Radiation dose: 17.5 mGy. 6 images were submitted. COMPARISON: None FINDINGS: There is opacification of the uterus. Nonvisualization of either fallopian tube. RAD/Salpingogram IMPRESSION: Nonvisualization of the fallopian tubes. Reading Location: [id number]
--- OUTSIDE RECORDS SUMMARY | 2025-10-05 17:05 | XMS RPT_ITS | CCD ---
Author Organization [facility] Care Team Providers Care Chief Information Officer Name Role Phone Dania Whitfield Unavailable Unavailable Unavailable Dr. Dania Whitfield Attending Kristy Whitfield, Dr. Najera Referring Artieabl e Roseann, Dr. Najera Primary Care Unavailabl e Bandarbiltam, Mr. López Dao Attending Unavail able Newbiltam, Mr. López Dao Referring Unavail able Roseann, Dr. Najera Primary Care Unavailneal e JOSETTE Rocha Attending Provider JOSETTE Rocha Attending Provider [phone] AGUILAR Hampton Attending Provider Eddie PUMP SERVICER HELPER-C, Riya Attending Provider Eddie PUMP SERVICER HELPER-C, Riya Referring Provider Dr. Sukh Santiago MD, Chi Primary Care Provider Dr. Sukh Santiago MD, Chi Attending Provider Dr. Sukh Santiago MD, Chi Referring Provider Dr. Dania Whitfield DO Primary Care Provider Sukh Santiago MD, Chi Attending Provider Unavailable Sukh Santiago MD, Chi Referring Provider Unavailable Eddie PUMP SERVICER HELPER-CRiya Attending Provider Eddie PUMP SERVICER HELPER-C, Riya Referring Provider Dr. Dania Whitfield DO Primary Care Provider Dr. Dania Whitfield DO Primary Care Provider Eddie PUMP SERVICER HELPER-C, Riya Attending Provider Eddie PUMP SERVICER HELPER-C, Riya Referring Provider Jackie HART, Dr. Sotelo Attending Provider Jackie HART, Dr. Sotelo Referring Provider Roseann MOROCHO, Dr. Najera Primary Care Physician Assessment, Health Risk Attending Physician Unav ailable Robert MOROCHO, Dr. Yung Emergency Department Physic karuna Gladys Perez DO, Dr. Laguna Attending Physician Gladys Perez DO, Dr. Laguna Nurse Practitioner Jack HART, Sukh Angel Attending Physician Unavailable Jack HART, Sukh Angel Referring Provider Unavailable Oberpedrito MOROCHO, Dr. Najera Referring Provider Jack OLS, Sukh Chi Attending Unavailable Oberhauser, Dania Primary Care Unavailable Jack OLS, Sukh Chi Attending Unavailable Oberhauser, Dania Primary Care Unavailable Jack OLS, Sukh Chi Referring Unavailable Jack OLS, Sukh Chi Attending Unavailable Oberhauser, Dania Primary Care Unavailable Jack OLS, Sukh Chi Referring Unavailable [place] PUMP SERVICER HELPER, Riya Attending Unavailable [place] PUMP SERVICER HELPER, Riya Referring Unavailable Oberhauser, Dania Primary Care Unavailable Oberhauser, Dania Primary Care Unavailable Vande VelSubha lyonsfer Referring Unavailabl e Vande Velde, Luz Elena Attending Unavailabl e Oberhauser, Adnia Primary Care Unavailable Vande Velserena, Luz Elena Attending Unavailabl e Oberhauser, Dania Primary Care Unavailable Jack OLS, Sukh Chi Referring Unavailable Jack OLS, Sukh Chi Attending Unavailable Ashleigh Mejia Referring Unavailable Ashleigh Mejia Attending Unavailable Oberhauser, Dania Primary Care Unavailable Jack, Sukh Chi Attending Unavailable Oberhauser, Dania Primary Care Unavailable Jack, Sukh Chi Referring Unavailable Oberhauser, Dania Primary Care Unavailable Vande VelLuz Elena lyons Referring Unavailabl e Vande Velde, Luz Elena Attending Unavailabl e Oberhauser, Dania Primary Care Unavailable Vandpatrick VelLuz Elena lyons Consulting Unavailabl e Vande Velde, Luz Elena Attending Unavailabl e Oberhauser, Dania Referring Unavailable Oberhauser, Dania Primary Care Unavailable Luz Elena Bush Attending Unavailabl e [place] PUMP SERVICER HELPER, Riya Attending Unavailable Assessment, Health Risk Attending Unavaila ble Oberhauser, Dania Primary Care Unavailable Oberhauser, Dania Primary Care Unavailable Jack OLS, Sukh Chi Attending Unavailable [place] PUMP SERVICER HELPER, Riya Attending Unavailable [place] PUMP SERVICER HELPER, Riya Referring Unavailable Oberhauser, Dania Primary Care Unavailable Eddie PUMP SERVICER HELPER, Riya Attending Unavailable [place] PUMP SERVICER HELPER, Riya Referring Unavailable Oberhauser, Dania Primary Care Unavailable [place] PUMP SERVICER HELPER, Riya Attending Unavailable Eddie PUMP SERVICER HELPER, Riya Referring Unavailable Eddie PUMP SERVICER HELPER, Riya Attending Unavailable Eddie PUMP SERVICER HELPER, Riya Referring Unavailable Oberhauser, Dania Primary Care Unavailable Eddie PUMP SERVICER HELPER, Riya Attending Unavailable [place] PUMP SERVICER HELPER, Riya Referring Unavailable Oberhauser, Dania Primary Care Unavailable Jack, Sukh Chi Primary Care Unavailable Jack, Sukh Chi Referring Unavailable Jack, Sukh Chi Attending Unavailable Allergies Allergy Classification Reported Allergen(s) Allergy Type Date of Onset Reaction(s) Facility (10 sources) Amoxicillin Drug Allergy 10-23-2023 [facility] (10 sources) Clavulanate Drug Allergy 10-23-2023 [facility] (1 source) Amoxicillin Drug Allergy 09-13-2025 [facility] (1 source) Clavulanate Drug Allergy 09-13-2025 [facility] Medications Current Medications Medication Drug Class(es) Dates Sig (Normalized) Sig (Original) acetaminophen 325 mg / oxyCODONE hydrochloride 5 mg oral tablet (2 sources) Opioid Agonist Start: 09-02-2025 End: 09-13-2025 Oxycodone-Acetamino phen (Percocet) 5-325 mg tablet Discontinued 1 {tbl} PO Q4H as needed for pain 10 7 0 September 02, 2025 September 13, 2025 3:17pm Ectopic Unspecified ectopic without intrauterine Dapsone-Spironolacton e-Niacin 6-5-2 % cream (6 sources) Start: 11-01-2024 Dapsone-Spironolact one-Niacin 6-5-2 % cream Active [facility] November 01, 2024 1:00am On Hold: Resume on 09/08/25. Complies with drug therapy Start: 11-01-2024 Dapsone-Spiron olactone-Niacin 6-5-2 % cream Active [facility] TOP[facility] November 01, 2024 1:00am ferrous sulfate 325 mg oral tablet (11 sources) Start: 10-23-2023 take 1 tablet by mouth once daily Ferrous Sulfate (Feosol) 325 mg (65 mg iron) tablet Active 150 mg PO DAILY October 23, 2023 1:00am Complies with drug therapy Start: 10-23-2023 take 1 tablet by julio cesar th once daily Ferrous Sulfate (Feosol) 325 mg (65 mg iron) tablet Active 325 mg PO DAILY October 23, 2023 1:00am Start: 11-14-2020 take 1 tablet by julio cesar th twice daily Ferrous Sulfate 324 MG Oral Tablet Delayed Release TAKE 1 TAB BY MOUTH BID Quantity: 60 Refills: 11 Ordered: 14-Nov-2020 Dania Whitfield DO Start : 14-Nov-2020 Active ibuprofen 800 mg oral tablet (2 sources) Nonsteroidal Anti-inflammatory Drug Start: 09-02-2025 End: 09-13-2025 take 1 tablet by mouth every eight hours as needed for pain Ibuprofen 800 mg tablet Discontinued 800 mg PO Q8H as needed for pain 30 0 September 02, 2025 12:00am September 13, 2025 3:17pm Mv-Min No.71-Aggwq-Xjx- Sziu157 (Alive Daily Support ) 180 mcg-25 mg- 25 mg tablet,chewable (6 sources) Start: 11-01-2024 take 1 tablet by mouth twice daily Mv-Min No.08-Kuemi-Drx-He rb293 (Alive Daily Support ) 180 mcg-25 mg- 25 mg tablet,chewable Active 1 {tbl} PO TWICE A DAY November 01, 2024 1:00am Complies with drug therapy Start: 11-01-2024 take 1 tablet by julio cesar th once Mv-Min No.35-Poruu-Riy-[id number] (Alive Daily Support ) 180 mcg-25 mg- 25 mg tablet,chewable Active {tbl} PO November 01, 2024 1:00am Completed/Discontinued Medications Medication Drug Class(es) Dates Sig (Normalized) Sig (Original) cephalexin 500 mg oral capsule (6 sources) Cephalosporin Antibacterial Start: 04-10-2024 End: 04-15-2024 take 1 capsule by mouth twice daily Cephalexin 500 mg capsule Discontinued 500 mg PO TWICE A DAY 10 5 April 10, 2024 12:00am April 14, 2024 12:00am April 15, 2024 12:06am letrozole 2.5 mg oral tablet (20 sources) Aromatase Inhibitor Start: 12-20-2024 End: 09-02-2025 take 1 tablet by mouth once daily Letrozole 2.5 mg tablet Discontinued 5 mg PO DAILY 10 February 20, 2025 12:13pm September 02, 2025 2:49am Take cycle days 3-7 mecobalamin 1 mg chewable tablet (1 source) Start: 11-09-2020 B40-Hymbno 1 MG Oral Tablet Chewable Quantity: 0 Refills: 0 Ordered: 09-Nov-2020 Dania Whitfield DO Start : 09-Nov-2020 Active metroNIDAZOLE 7.5 mg/ml topical cream (6 sources) Nitroimidazole Antimicrobial Start: 11-01-2024 End: 12-20-2024 Metronidazole (Metrocream) 0.75 % cream Discontinued 1 [facility] TOP[facility] daily November 01, 2024 1:00am December 20, 2024 2:02pm spironolactone 100 mg oral tablet (1 source) Aldosterone Antagonist Start: 11-09-2020 take 1 tablet by mouth once daily Aldactone 100 MG Oral Tablet TAKE 1 TABLET DAILY. Quantity: 0 Refills: 0 Ordered: 09-Nov-2020 Dania Whitfield DO Start : 09-Nov-2020 Active Vitamin B Complex (B Complex-Vitamin B12) tablet (10 sources) Start: 10-23-2023 End: 04-10-2024 Vitamin B Complex (B Complex-Vitamin B12) tablet Discontinued 1 {tbl} PO DAILY October 23, 2023 1:00am April 10, 2024 11:34am Start: 10-23-2023 take 1 tablet by julio cesar th once daily Vitamin B Complex (B Complex-Vitamin B12) tablet Active 1 TABLET PO DAILY October 23, 2023 12:00am Problems Active Problems Problem Classification Problem Date Documented Date Episodic/Chronic Abdominal pain (2 sources) Abdominal pain; Translations: [Unspecified abdominal pain] 09-02-2025 Episodic Administrative/social admission (12 sources) Patient encounter status; Translations: [Encounter for pre-employment examination] 02-21-2022 Episodic Deficiency and other anemia (1 source) Microcytic anemia; Translations: [Iron deficiency anemia, unspecified] Episodic Deficiency and other anemia (1 source) Iron deficiency anemia; Translations: [Iron deficiency anemia, unspecified] Episodic Deficiency and other anemia (10 sources) Anemia; Translations: [Anemia, unspecified] 10-23-2023 Episodic E Codes: Natural/environment (1 source) Tick bite; Translations: [Insect bite, nonvenomous, of other, multiple, and unspecified sites, without mention of infection] Episodic Ectopic (9 sources) Ectopic ; Translations: [Unspecified ectopic without intrauterine ] Onset: 09-12-2025 09-02-2025 Episodic Female infertility (10 sources) 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; Translations: [Female infertility associated with anovulation] Onset: 11-01-2024 11-01-2024 Chronic Other hematologic conditions (2 sources) History of anemia; Translations: [Personal history of diseases of the blood and blood-forming organs and certain disorders involving the immune mechanism] 09-02-2025 Episodic Other nervous system disorders (1 source) Sore mouth; Translations: [Other and unspecified diseases of the oral soft tissues] Episodic Other skin disorders (1 source) Acne; Translations: [Other acne] Episodic Other skin disorders (1 source) Loss of hair; Translations: [Alopecia, unspecified] Episodic Other upper respiratory infections (1 source) Streptococcal tonsillitis ; Translations: [Streptococcal sore throat] Episodic Residual codes; unclassified (1 source) Body mass index 20-24 - normal; Translations: [Body Mass Index between 19-24, adult] Episodic Residual codes; unclassified (1 source) History finding; Translations: [Other specified conditions influencing health status] Episodic Urinary tract infections (6 sources) Urinary tract infectious disease; Translations: [Urinary tract infection, site not specified] 11-01-2024 Episodic Past or Other Problems Problem Classification Problem Date Documented Da te Episodic/Chronic Immunizations and screening for infectious disease (3 sources) Suspected disease caused by 2019-nCoV; Translations: [Contact with or exposure to other viral diseases] Onset: 11-23-2024 Episodic Results Test Name Value Interpretation Reference Range Facility hCG Titer Quant., Serumon HCG QUANT. < 1 Normal <9 non-preg [facility] Comment on above: Result Comment: Gest ational Age 0.2-1 Week: 5-50 mIU/mL 1-2 Weeks: 50-500 mIU/mL 2-3 Weeks: 100-5000 mIU/mL 3-4 Weeks: 500-10,000 mIU/mL 4-5 Weeks:1000-50,000 mIU/mL 5-6 Weeks: 10,000-100,000 mIU/mL 6-8 Weeks: 15,000-200,000 mIU/mL 2-3 Months:10,000-100,000 mIU/mL Performed By: #### L 500.4050, L100.0100, L700.6800 #### [facility] [address] [place], [address] Knockout Machine Operator Office Visit Reporton 09-13-2025 Knockout Machine Operator Office Visit Report [facility] [address], [address] [place] [address] OFFICE VISIT Date of Service: 09/13/25 MR#: [id number] Acct: [id number] Name: MECCA FRANKLIN Rep #: [id number] : 1995 Provider: Dr. Luz Elena Mast DO Age/Sex: 29/F Location[place] [facility] Status: Signed Intake Vital Signs 09/02/25 05:30 09/13/25 15:16 09/13/25 15:18 Height 5 ft 4 in 5 ft 4 in 5 ft 4 in Weight: 138 lb 4 oz BMI 23.7 BP 118/75 Intake Visit Reasons: 2wk Ectopic FU Chief Complaint: 2w incision check Mobile Device Developer Required: No Is patient in pain?: No Allergies amoxicillin (From Augmentin) Allergy (Mild, Verified 09/13/25 15:16) Hives clavulanic acid (From Augmentin) Allergy (Mild, Verified 09/13/25 15:16) Hives Medications ???Medication ???Instructions ???Recorded ???Confirmed ???Type ferrous sulfate 325 mg (65 mg 150 mg PO DAILY 10/23/23 09/13/25 History iron) tablet (Feosol) dapsone 6 %-spironolactone 5 applic topical 11/01/24 09/13/25 H istory %-niacinamide 2 % topical cream Held on 09/02/25. Instructions: Resume on 09/08/25. 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 no complaints today. She would like to proceed with an HSG after her next menses ROS ENT ENT: Reports system reviewed and no additional complaints, except as documented Cardio Card: Reports system reviewed and no additional complaints, except as documented Resp Resp: Denies cough, dyspnea or dyspnea on exertion GI GI: Denies abdominal pain, bloating or change in bowel habits : Denies vaginal odor or vaginal pruritus Musc Musc: Reports system reviewed and no additional complaints, except as documented Exam Const General: cooperative, healthy appearing and comfortable Resp Effort Inspection: normal respiratory effort GI Palpation: soft and nontender Rectal Exam: other Other: incisions are clean, dry, and intact. Extrem General: no edema Coding Level of Care Code No Charge Diagnoses Ectopic O00.90 Assessment and Plan Assessment and Plan (1) Ectopic : Status: Acute Plan: healing well call when gets next menses to schedule an hsg 09/13/25 1608 Date Luz Elena Bush DO [facility] Signature: Date (if applicable) CC: Normal [facility] COVID 19 AG RAPID (CAROL Valerio)on 09-11-2025 SARS-CoV-2 (COVID-19) RNA MILES+probe Ql (Unsp spec) SARS-CoV-2 (COVID 19) Negative RAPID METHOD BinaxNow COVID19 Ag Card Normal [facility] Comment on above: Performed By: #### L 500.4050, L100.0100, L700.6800 #### [facility] [address] [place], [place], [id number] COVID-19 virus antigen assay Ordered By: Sukh Santiago on 09-11-2025 SARS-CoV-2 (COVID-19) Ag IA.rapid Ql (Resp) [facility] Surgical pathology reportOrd ered By: Socorro Hubbard on 09-11-2025 Surgical pathology study [facility] Culture, Blood (WB)on 2024 CUB Blood cultures x2, from two different sites No growth in 5 days. Normal [facility] Comment on above: Performed By: #### L 503.6005, M200.1000 #### [facility] [address] [place], [place], [id number] CUB Blood cultures x2, from two different sites No growth in 5 days. Normal [facility] Comment on above: Performed By: #### L 503.6005, M200.1000 #### [facility] [address] [place], [place], [id number] Urine Cultureon 09-04-2025 URC Below infection level. Mixed Gram Positive Organisms Brooks Count 1000-10,000 MIXC Mixed contaminants. Submit a new specimen if indicated. Normal [facility] Comment on above: Performed By: #### L 500.4050, L100.0100, L700.6800 #### [facility] [address] [place], [address] Absolute lymphocyte countOrd ered By: Luz Elena Perez on 09-02-2025 Lymphocytes Auto (Unsp spec) [#/Vol] 0.59 10*3/uL Low 0.83-4.51 [facility] Absolute neutrophil countOrd ered By: Luz Elena Perez on 09-02-2025 Neutrophils (Bld) [#/Vol] 12.9 10*3/uL High 2.0-7.7 [facility] Automated lymphocyte count a s percentage of total leukocytesOrdered By: Luz Elena Perez on 09-02-2025 Lymphocytes/100 WBC Auto (Unsp spec) 4.3 % Low 19-41 [facility] Basophil percentageOrdered B y: Luz Elena Perez on 09-02-2025 Basophils/100 WBC (Bld) 0.1 % 0-1 [facility] [place] CBC W/Diff, Automatedon 08-23 Absolute Lymph 0.59 X10 3/uL Low 0.83-4.51 [facility] Comment on above: Performed By: #### L 500.4050, L100.0100, L700.6800 #### [facility] [address] [place], [address] Absolute Neut 12.9 X10 3/uL High 2.0-7.7 [facility] Comment on above: Performed By: #### L 500.4050, L100.0100, L700.6800 #### [facility] [address] [place], [address] Basophils/100 WBC (Bld) 0.1 % Normal 0-1 [facility] [place] Comment on above: Performed By: #### L 500.4050, L100.0100, L700.6800 #### [facility] [address] [place], [address] Eosinophils/100 WBC (Bld) 0.1 % Normal 0-5 [facility] Comment on above: Performed By: #### L 500.4050, L100.0100, L700.6800 #### [facility] [address] [place], [address] Erythrocyte distribution width (RBC) [Ratio] 12.5 % Normal 11.6-14.6 [facility] Comment on above: Performed By: #### L 500.4050, L100.0100, L700.6800 #### [facility] [address] [place], [address] Hematocrit (Bld) [Volume fraction] 28.5 % Low 37-47 [facility] Comment on above: Performed By: #### L 500.4050, L100.0100, L700.6800 #### [facility] [address] [place], [address] Hemoglobin (Bld) [Mass/Vol] 9.6 g/dL Low 12.0-15.0 [facility] Comment on above: Performed By: #### L 500.4050, L100.0100, L700.6800 #### [facility] [address] [place], [address] IG% 0.400 Normal 0.0-0.9 [facility] Comment on above: Result Comment: IG% - Immature Granulocytes (promyelocytes, myelocytes and metamyelocytes) > 1% indicates that a LEFT SHIFT is Present. Performed By: #### L 500.4050, L100.0100, L700.6800 #### [facility] [address] [place], [address] Lymphocytes/100 WBC (Bld) 4.3 % Low 19-41 [facility] Comment on above: Performed By: #### L 500.4050, L100.0100, L700.6800 #### [facility] [address] [place], [address] MCH (RBC) [Entitic mass] 30.9 pg Normal 27.0-32.0 [facility] Comment on above: Performed By: #### L 500.4050, L100.0100, L700.6800 #### [facility] [address] [place], [address] MCHC (RBC) [Mass/Vol] 33.7 g/dL Normal 32-36 [facility] Comment on above: Performed By: #### L 500.4050, L100.0100, L700.6800 #### [facility] [address] [place], [address] MCV (RBC) [Entitic vol] 91.6 fL Normal 81-99 [facility] [place] Comment on above: Performed By: #### L 500.4050, L100.0100, L700.6800 #### [facility] [address] [place], [address] Monocytes/100 WBC (Bld) 1.2 % Normal 0-10 [facility] [place] Comment on above: Performed By: #### L 500.4050, L100.0100, L700.6800 #### [facility] [address] [place], [address] Neutrophils/100 WBC (Bld) 93.9 % High 47-70 [facility] Comment on above: Performed By: #### L 500.4050, L100.0100, L700.6800 #### [facility] [address] [place], [address] Nucleated RBC (Bld) [#/Vol] 0 10*3/uL Normal 0-5 [facility] Comment on above: Performed By: #### L 500.4050, L100.0100, L700.6800 #### [facility] [address] [place], [address] Platelet mean volume (Bld) [Entitic vol] 10.7 fL Normal 6.2-12.0 [facility] Comment on above: Performed By: #### L 500.4050, L100.0100, L700.6800 #### [facility] [address] [place], [address] Platelets (Bld) [#/Vol] 176 10*3/uL Normal 150-450 [facility] Comment on above: Performed By: #### L 500.4050, L100.0100, L700.6800 #### [facility] [address] [place], [address] RBC (Bld) [#/Vol] 3.11 10*6/uL Low 4.2-5.4 [facility] Comment on above: Performed By: #### L 500.4050, L100.0100, L700.6800 #### [facility] [address] [place], [address] RDW SD 42.1 fl Normal 35.1-43.9 [facility] Comment on above: Performed By: #### L 500.4050, L100.0100, L700.6800 #### [facility] [address] [place], [address] WBC (Bld) [#/Vol] 13.7 10*3/uL High 4.4-11.0 [facility] Comment on above: Performed By: #### L 500.4050, L100.0100, L700.6800 #### [facility] [address] [place], [address] Discharge Instructionon 08-23 Discharge Instruction [facility] Medical Records Department [address] [place] [address] Instructions for Home/Discharge Instructions 09/02/25 0248 MR#: [id number] Acct: [id number] Name: MECCA FRANKLIN Rep #: [id number] : 1995 29 From: Luz Elena Bush DO PCP: Dr. Dania Whitfield DO Status:REG SDC Discharge Instructions DC O2, CPAP, BIPAP needs Home O2 Discharge instructions: No Dressing / Incision Discharge Activity: Return to Normal Activity, May Not Drive (for two weeks or while taking narcotic pain medications.), May Shower and May Take a Tub Bath (in 7 days) May resume sexual activity in: 1 week Weight Bearing Status: Full weight bearing Dressing / Incision Call your doctor if you observe: Using more than 1 pad per hour, Shortness of breath, Chest pain and Uncontrolled pain Suture Line Care: Avoid Pulling/Pushing and Avoid Pinching/Bending Remove Dressing in: 1 week (if present) Cleanse incision/area with: Soap Water and Keep Dressing Clean Dry Follow Up Care Please Follow Up With: Luz Elena Bush DO When: Call to make an appointment with your doctor for a follow up incision check in 1-2 weeks. Test Results: Test results from this visit will be discussed in further detail at your follow-up appointment, if applicable. Discharge Plan Admission Primary Reason for Your Visit: laparoscopy to treat ectopic Attending Provider: Luz Elena Bush Primary Care Provider: Dania Whitfield Instructions Print Language: Tunisian Discharge Orders/Prescriptions Prescriptions: New ibuprofen 800 mg tablet 800 mg PO Q8H PRN (Reason: pain) Qty: 30 0RF oxycodone-acetaminop hen [Percocet] 5-325 mg tablet 1 tab PO Q4H PRN (Reason: pain) 7 Days Qty: 10 0RF Continued ferrous sulfate [Feosol] 325 mg (65 mg iron) tablet 150 mg PO DAILY Alive Daily Support 180 mcg-25 mg- 25 mg tablet,chewable 1 tab PO BID Held dapsone-spironolacto ne-niacin 6-5-2 % cream topical Hold Instructions: Resume on 09/08/25. Discontinued letrozole 2.5 mg tablet 5 mg PO DAILY Qty: 10 0RF Rx Instructions: Take cycle days 3-7 Referrals / Follow Up: Dania Whitfield DO [Primary Care Provider, Internal Medicine] Disposition Disposition (needs filled in before D/C Order can be placed): Home, Self Care 09/02/25 0251 Luz Elena Bush DO CC: Dr. Dania Whitfield DO Signed Normal [facility] Eosinophil percentageOrdered By: Luz Elena Perez on 09-02-2025 Eosinophils/100 WBC (Bld) 0.1 % 0-5 [facility] Erythrocyte distribution wid th ratioOrdered By: Luz Elena Perez on 09-02-2025 Erythrocyte distribution width (RBC) [Ratio] 12.5 % 11.6-14.6 [facility] Erythrocyte distribution wid th standard deviationOrdered By: Luz Elena Perez on 09-02-2025 Erythrocyte distribution width (RBC) [Ratio] 42.1 fl 35.1-43.9 [facility] H AND P Exam - OB/GYNon 08-23 H&P 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 Dania Whitfield DO Status:REG [facility] Location: AC03-1 HPI - General HPI Narrative MECCA FRANKLIN, is a 29 y/o @ unknown gestational age who presents to [facility] ER with vaginal bleeding and a home positive test. She has been seeing an [facility] doctor and has tried IUI and clomid. This she states was spontaneous. She did have an HSG that was normal earlier this year . Ultrasound shows the following: FINDINGS Anteverted uterus appears normal in size and smooth in contour, measuring 9.2 x 5.4 x 4.3 cm. No discrete uterine myoma is seen. Arcuate versus septate uterine morphology. Endometrial stripe complex appears within normal limits measuring up to 1.6 cm. No intrauterine gestational sac or sac-like structure is seen to confirm an IUP. The cervix is closed. Left ovary has a normal sonographic appearance. The right ovary appears normal, however there is a large complex partially cystic and solid echogenic mass in the right adnexal region, which measures approximately up to 9.6 x 5.3 x 2.5 cm. Small amount of nonspecific free fluid in the cul-de-sac. US/Transvaginal w/Preg US IMPRESSION: No intrauterine gestational sac or sac-like structure to confirm an IUP. There is probable arcuate versus septate uterine morphology. There is a large heterogeneous partially solid and cystic right adnexal mass, which appears separate from the ovary. Findings are suspicious for ectopic , given the absence of an IUP. Recommend clinical correlation with serum beta HCG level, and Knockout Machine Operator consultation. [facility] Medical History Anemia Home Medications ???Medication ???Instructions ???Recorded ???Last Taken ???Type ferrous sulfate 325 mg (65 mg 150 mg PO DAILY 10/23/23 Unknown H istory iron) tablet (Feosol) dapsone 6 %-spironolactone 5 applic topical 11/01/24 Unknown Hi story %-niacinamide 2 % topical cream mv-mn no.97-folic 180 mcg-dha 25 1 tab PO BID 11/01/24 Unknown Hist ory mg-herb no.293 25 mg chewable tablet (Alive Daily Support ) letrozole 2.5 mg tablet 5 mg (2 x 2.5 mg) PO DAILY #10 tab s 02/20/25 Unknown Rx Allergy/AdvReac Type Severity Reaction Status Date / Time amoxicillin (From Augmentin) Allergy Mild Hives Verified 09/01/25 20:21 clavulanic acid (From Allergy Mild Hives Verified 09/01/25 20:21 Augmentin) Family History Grandmother Skin cancer Grandfather Skin cancer CVA (cerebral vascular accident) Father CVA (cerebral vascular accident) Hypertension Brother Hypertension Social History adopted: No household members: spouse housing: house current occupational status: employed 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[employer] current occupational exposures/hazards: Yes pets and animals: Yes pets and animals: cat(s) and dog(s) history of recent travel: No sexually active: Yes Smoking Status: Never smoker alcohol intake: current details: socially substance use type: does not use diet: gluten free caffeine: Yes deanna/yazidism: Taoism seatbelt use: always do you feel safe at home: Yes 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 Constitutional Constitutional: Denies change in weight, fatigue, fever(s), headache(s), poor appetite or weakness Eyes Eyes: Denies blurry vision, change in vision, seeing flashes or spots in vision ENT HEENT: Denies dizziness, headache(s), loss taste/smell or sore throat Cardiovascular Cardiovascular: Denies chest pain, dizziness, dyspnea, irregular heart rhythm, leg edema, palpitations or vomiting Respiratory/Chest Respiratory/Chest: Denies chest tightness, cough, dyspnea or breast pain Gastrointestinal Gastrointestinal: Denies anorexia, constipation, cramping, diarrhea, hemorrhoids, vomiting or weight changes Genitourinary Genitourinary: Denies dysuria, flank pain, genital lesions, urinary frequency or urinary urgency Musculoskeletal Musculoskeletal: Denies back pain, difficulty walking, joint pain, limited range of motion, muscle cramps or numbness Integumentary Integumentary: Denies lesions or unusual bruising Neurologic Neurologic: Denies abnormal movements, abnormal speech, dizziness, numbness, seizure-like activity or syncope Psychiatric Psychiatric: Denies anxiety, behavioral changes, change in appetite, change in libido, cognitive impairment, confusion, depression, difficulty concentrating, hallucinations or s (more content not included)... Normal [facility] Hematocrit Auto (Bld) [Volum e fraction]Ordered By: Luz Elena Perez on 10-11-2025 Hematocrit (Bld) [Volume fraction] 28.5 % Low 37-47 [facility] Hemoglobin measurementOrdere d By: Luz Elena Perez on 09-02-2025 Hemoglobin (Bld) [Mass/Vol] 9.6 g/dL Low 12.0-15.0 [facility] Immature granulocytes/100 WB C Auto (Bld)Ordered By: Luz Elena Perez on 09-02-2025 Immature granulocytes/100 WBC (Bld) 0.400 % 0.0-0.9 [facility] Comment on above: IG% - Immature Granu locytes (promyelocytes, myelocytes and metamyelocytes) > 1% indicates that a LEFT SHIFT is Present. MCV (mean corpuscular volume ) determinationOrdered By: Luz Elena Perez on 09-02-2025 MCV (RBC) [Entitic vol] 91.6 fL 81-99 [address] [place] MR/POSTOP.ANEon 09-02-2025 MR/POSTOP.[facility] Medical Records Department [address] [place] [address] Anesthesia Postop Eval I 09/02/25412 MR#: [id number] Acct: [id number] Name: MECCA FRANKLIN Rep #: [id number] : 1995 29 From: Ralf Orellana MD PCP: Dr. Dania Whitfield, DO Status:REG SDC Y Race: C Location: [place] [address] Anesthesia: Postop Eval I Current Vital Signs Temperature: 99.8 F Pulse Rate: 89 Blood Pressure: 129/89 Respiratory Rate: 16 Pulse Ox: 94 Oxygen Delivery Method: Room Air Assessment Airway patent: Yes Spontaneous unlabored respirations: Yes Mental status: Awake and Calm nausea: Yes Vomiting: No Anesthesia Complication: No Fluid Hydration Crystalloid volume administer (ml): 600 Total IV fluid infused: 600 Progress Note Anesthesia document: Postop Eval 1 completed: Yes 09/02/25416 Date Ralf Orellana MD Cosigner Signature: Date CC: Signed Normal [facility] MR/[id number] 09-02-2025 MR/POSTOPAN2 [facility] Medical Records Department [address] [place] [address] Anesthesia Postop Eval II 09/02/25435 MR#: [id number] Acct: [id number] Name: MECCA FRANKLIN Rep #: [id number] : 1995 29 From: Ralf Orellana MD PCP: Dr. Dania Whitfield, DO Status:REG SDC Y Race: C Location: [address] Anesthesia Postop Eval I Sum Postop Eval Completion status Anesthesia document: Postop Eval 1 completed: Yes Anesthesia Postop Eval I Summary Anesthesia Postop Eval I Summary: Anesthesia Postop Eval I: Assessment Summary Airway patent Yes 09/02/25 04:17 Spontaneous unlabored Yes 09/02/25 04:17 respirations Mental status Awake,Calm 09/02/25 04:17 nausea Yes 09/02/25 04:17 Vomiting No 09/02/25 04:17 Anesthesia Postop Eval I: Fluid Summary Crystalloid volume administer 600 09/02/25 04:17 (ml) Colloids volume administered ( ml) Blood Product volume administered (ml) Total IV fluid infused 600 09/02/25 04:17 Anesthesia Postop Eval I: Summary Notes Anesthesia Complication No 09/02/25 04:17 Anesthesia Complication Comment: Post-operative progress note Anesthesia: Postop Eval II Evaluation Mental status: Awake and Calm Pain Level: 3 nausea: No Vomiting: No Complications Anesthesia Complication: No 09/02/25435 Date Ralf Orellana MD Cosigner Signature: Date CC: Signed Normal [facility] Mean corpuscular hemoglobin (MCH) determinationOrdered By: Luz Elena Perez on 09-02-2025 MCH (RBC) [Entitic mass] 30.9 pg 27.0-32.0 [facility] Mean corpuscular hemoglobin concentration (MCHC) determinationOrdered By: Luz Elena Perez on 09-02-2025 MCHC (RBC) [Mass/Vol] 33.7 g/dL 32-36 [facility] Mean platelet volume determi nationOrdered By: Luz Elena Perez on 09-02-2025 Platelet mean volume (Bld) [Entitic vol] 10.7 fL 6.2-12.0 [facility] Monocyte percentageOrdered B y: Luz Elena Perez on 09-02-2025 Monocytes/100 WBC (Bld) 1.2 % 0-10 [facility] Neutrophil percentageOrdered By: Luz Elena Perez on 09-02-2025 Neutrophils/100 WBC (Bld) 93.9 % High 47-70 [facility] Nucleated red blood cell per centageOrdered By: Luz Elena Perez on 09-02-2025 Nucleated RBC/100 WBC (Bld) [Ratio] 0 % 0-5 [facility] Operative Reporton Operative Report [facility] Medical Records Department [address] [place] [address] Operative Report 09/02/25 0348 MR#: [id number] Acct: [id number] Name: MECCA FRANKLIN Rep #: [id number] : 1995 29 From: Luz Elena Bush DO PCP: Dr. Dania Whitfield DO Status:[facility] Location: [facility] Multi Select Codes Urinary/Genital Urinary/Genital CPT Codes: 18049 Treat ectopic lapro w/ salpingectomy Operative Report (Standard) Operative Information Date of Procedure: 09/02/25 Pre-Operative Diagnosis: right fallopian tube ruptured ectopic, large hemoperitoneum Post-Operative Diagnosis: right fallopian tube ruptured ectopic, large hemoperitoneum Surgery/Procedure Performed: laparoscopic left salpingectomy and evacuation of large hemoperitoneum esthetic dermatologist: Yes Storage Battery Charger: Redd Miranda Tasks completed by first leveler: Closing, Trocar and Other (holding and maneuvering camera ) Additional sales service assistant?: No Type of Anesthesia: General RN Documented Start/Stop Times: Operation Date: 09/02/25 03:00 Case Time Anesthesia Start 09/02/25 02:40 Into Room 09/02/25 02:40 Procedure Start 09/02/25 03:11 Procedure Start Time: 02:40 Procedure Stop Time: 03:54 Select all DRAINS/GRAFTS/IMPLAN TS that apply: None Estimated Blood Loss: 500cc Specimen collected: Yes Description of specimen(s) removed: right fallopian tube Description of surgery: The patient was taken in the operating room and was placed under general anesthesia was prepped and draped in normal sterile fashion in the dorsal lithotomy position. Bladder was drained of clear urine and SCDs were on preoperatively. A sponge stick was placed in the vagina. Attention was then turned to the abdominal portion of the procedure and the umbilicus was elevated with towel clamps and injected with Marcaine and after a 5 mm incision was made and a 5 mm trocar was inserted into the abdomen under direct visualization. The abdomen was insufflated with CO2 gas and a 5 mm optical trocar was placed under direct visualization. A left lower quadrant 5 mm port and a 5 mm port suprapubically were placed under direct visualization. Uterus was well visualized and upon inspection of the pelvis and ectopic was seen in the left fallopian tube which was ruptured open and bleeding. A large amount of blood was noted in the cul-de-sac and the gutters and around the liver.. Using a LigaSure device the mesosalpinx was transected and the fallopian tube removed including the ectopic and removed through the umbilical port site that was enlarged to allow passage of a laparoscopic bag. Further irrigation was performed until most of the blood was evacuated. Excellent hemostasis was noted in the pelvis and the port site was closed through the fascia using a William Whitman with an 0 Vicryl. Liver and upper abdomen were visualized notably within normal limits and no other gross abnormalities were seen in the abdomen. All instruments removed from the abdomen after gas was desufflated. Port sites were closed with 3-0 Monocryl Steri's and op sites were applied. All instruments removed from the vagina and patient was awoken and taken recovery in stable condition. Surgical Findings: Right ruptured ectopic large hemoperitoneum Complications Complications: No Admit VTE Documentation VTE Present on Admission: No VTE Mechan Device Prophylaxis: SCD's VTE Pharm Prophylaxis ordered?: No 09/02/25 0354 Cosigner Signature (if applicable): CC: Dr. Luz Elena Bush DO; Dr. Dania Whitfield DO Signed ADDENDUM by Dr. Luz Elena Bush DO on 09/04/25 at 1731 Addendum correction on above note, the ectopic was in the RIGHT fallopian tube, not the left. 09/04/25 173 Cosigner Signature (if applicable): cc: Dr. Luz Elena Bush DO; Dr. Dania Whitfield DO * Signed Normal [facility] Platelet countOrdered By: Kurt Perez on 09-02-2025 Platelets (Bld) [#/Vol] 176 10*3/uL 150-450 [facility] RBC Auto (Bld) [#/Vol]Ordere d By: Luz Elena Perez on 09-02-2025 RBC (Bld) [#/Vol] 3.11 10*6/uL Low 4.2-5.4 [facility] Surgery Specimen Level Timur 09-02-2025 Surgery Specimen Level IV ------ Patient Age/Sex Location Account Attending Physician MECCA FRANKLIN [facility] [id number] Dr. Luz Elena Bush, Fadia Specimen: [id number] Received: 09/04/25 Status: JUANA Ansari Num: [id number] Spec Type: ECTOPIC Subm Dr: Dr. Luz Elena Bush DO [facility] OPERATION: Laparoscopic, removal ectopic PRE-OP DIAGNOSIS: Ectopic TISSUE SUBMITTED: A- Right ectopic MICROSCOPIC DIAGNOSIS A. Right fallopian tube, resection: * Focal luminal dilatation with trophoblast, hemorrhage and decidual change, consistent with products of conception. MICROSCOPIC DESCRIPTION Slides are reviewed. GROSS DESCRIPTION A. Received in formalin labeled with the patient's name and date of . Designated as right ectopic" is a 6.7 x 2.0 cm purple-love, dilated but grossly intact, fimbriated fallopian tube admixed with a 4.2 x 3.4 x 1.4 cm aggregate of clotted blood. Sectioning reveals focally congested and diffusely edematous cut surfaces. No definitive tissues are grossly identified. Entirely submitted in 10 cassettes as follows: A1-A3: Fallopian tube fimbriaA4-A6: Fallopian tube [id number] : Blood clot SC 09/04/2025 CPT:35644 Patient Age/Sex Location Account Attending Physician MECCA FRANKLIN [facility] [id number] Fadia Matthews Signed (signature on file) Dr. Socorro Hubbard MD 09/11/25 0916 Normal [facility] Comment on above: Performed By: #### L 503.6005, M200.1000 #### [facility] Laboratory [facility] [address] [place], [place], [address] White blood cell (WBC) count Ordered By: Luz Elena Perez on 09-02-2025 WBC (Bld) [#/Vol] 13.7 10*3/uL High 4.4-11.0 [facility] Anion gap in Serum or Plasma Ordered By: Dilshad Jones on 09-01-2025 Anion gap [Moles/Vol] 14 mmol/L - [facility] BUN/creatinine ratioOrdered By: Dilshad Jones on 09-01-2025 Urea nitrogen/Creatinine [Mass ratio] 18.1 mg/mg - [facility] Bilirubin Test strip Ql (U)O rdered By: Dilshad Jones on 09-01-2025 Bilirubin Ql (U) Negative Negative [facility] Bilirubin, totalOrdered By: Dilshad Jones on 09-01-2025 Bilirubin [Mass/Vol] 0.48 mg/dL 0.00-1.30 [facility] Blood cultureOrdered By: Kiko Jones on 09-01-2025 Bacteria identified Cx Nom (Bld) No growth in 5 days. [facility] Bacteria identified Cx Nom (Bld) No growth in 5 days. [facility] CBC W/Diff, Automatedon 08-23 Absolute Lymph 1.66 X10 3/uL Normal 0.83-4.51 [facility] Comment on above: Performed By: #### L 500.4050, L100.0100, L700.6800 #### [facility] Laboratory [address] [place], [address] Absolute Neut 9.7 X10 3/uL High 2.0-7.7 [facility] Comment on above: Performed By: #### L 500.4050, L100.0100, L700.6800 #### [facility] [address] [place], [address] Basophils/100 WBC (Bld) 0.2 % Normal 0-1 [place] Comment on above: Performed By: #### L 500.4050, L100.0100, L700.6800 #### [facility] [address] [place], [address] Eosinophils/100 WBC (Bld) 1.1 % Normal 0-5 [facility] Comment on above: Performed By: #### L 500.4050, L100.0100, L700.6800 #### [facility] [address] [place], [address] Erythrocyte distribution width (RBC) [Ratio] 12.4 % Normal 11.6-14.6 [facility] Comment on above: Performed By: #### L 500.4050, L100.0100, L700.6800 #### [facility] [address] [place], [address] Hematocrit (Bld) [Volume fraction] 35.2 % Low 37-47 [facility] Comment on above: Performed By: #### L 500.4050, L100.0100, L700.6800 #### [facility] [address] [place], [address] Hemoglobin (Bld) [Mass/Vol] 12.1 g/dL Normal 12.0-15.0 [facility] Comment on above: Performed By: #### L 500.4050, L100.0100, L700.6800 #### [facility] [address] [place], [address] IG% 0.400 Normal 0.0-0.9 [facility] Comment on above: Result Comment: IG% - Immature Granulocytes (promyelocytes, myelocytes and metamyelocytes) > 1% indicates that a LEFT SHIFT is Present. Performed By: #### L 500.4050, L100.0100, L700.6800 #### [facility] [address] [place], [address] Lymphocytes/100 WBC (Bld) 13.6 % Low 19-41 [facility] Comment on above: Performed By: #### L 500.4050, L100.0100, L700.6800 #### [facility] [address] [place], [address] MCH (RBC) [Entitic mass] 30.3 pg Normal 27.0-32.0 [facility] Comment on above: Performed By: #### L 500.4050, L100.0100, L700.6800 #### [facility] [address] [place], [address] MCHC (RBC) [Mass/Vol] 34.4 g/dL Normal 32-36 [facility] Comment on above: Performed By: #### L 500.4050, L100.0100, L700.6800 #### [facility] [address] [place], [address] MCV (RBC) [Entitic vol] 88.2 fL Normal 81-99 [facility] Comment on above: Performed By: #### L 500.4050, L100.0100, L700.6800 #### [facility] [address] [place], [address] Monocytes/100 WBC (Bld) 4.7 % Normal 0-10 [facility] Comment on above: Performed By: #### L 500.4050, L100.0100, L700.6800 #### [facility] [address] [place], [address] Neutrophils/100 WBC (Bld) 80.0 % High 47-70 [facility] Comment on above: Performed By: #### L 500.4050, L100.0100, L700.6800 #### [facility] [address] [place], [address] Nucleated RBC (Bld) [#/Vol] 0 10*3/uL Normal 0-5 [facility] Comment on above: Performed By: #### L 500.4050, L100.0100, L700.6800 #### [facility] [address] [place], [address] Platelet mean volume (Bld) [Entitic vol] 10.6 fL Normal 6.2-12.0 [facility] Comment on above: Performed By: #### L 500.4050, L100.0100, L700.6800 #### [facility] [address] [place], [address] Platelets (Bld) [#/Vol] 255 10*3/uL Normal 150-450 [facility] Comment on above: Performed By: #### L 500.4050, L100.0100, L700.6800 #### [facility] [address] [place], [address] RBC (Bld) [#/Vol] 3.99 10*6/uL Low 4.2-5.4 [facility] Comment on above: Performed By: #### L 500.4050, L100.0100, L700.6800 #### [facility] [address] [place], [address] RDW SD 40.0 fl Normal 35.1-43.9 [facility] Comment on above: Performed By: #### L 500.4050, L100.0100, L700.6800 #### [facility] [address] [place], [address] WBC (Bld) [#/Vol] 12.2 10*3/uL High 4.4-11.0 [facility] Comment on above: Performed By: #### L 500.4050, L100.0100, L700.6800 #### [facility] [address] [place], [address] Carbon dioxide, total [Moles /volume] in Central venous bloodOrdered By: Dilshad Jones on 09-01-2025 CO2 [Moles/Vol] 22.4 mmol/L 21.0-32.0 [facility] Chloride assayOrdered By: Nawaf Jones on 09-01-2025 Chloride [Moles/Vol] 100 mmol/L 98-108 [facility] Comprehensive Metabolic Prof ilon 09-01-2025 Albumin [Mass/Vol] 5.0 g/dL Normal 3.5-5.0 [facility] Comment on above: Performed By: #### L 500.4050, L100.0100, L700.6800 #### [facility] [address] [place], [address] Albumin/Globulin [Mass ratio] 1.7 {ratio} Normal 0.9-2.4 [facility] Comment on above: Performed By: #### L 500.4050, L100.0100, L700.6800 #### [facility] [facility] [address] [place], [address] ALK PHOS 59 U/L Normal 35-104 [facility] Comment on above: Performed By: #### L 500.4050, L100.0100, L700.6800 #### [facility] [address] [place], [address] ALT [Catalytic activity/Vol] 17 U/L Normal <=34 [facility] Comment on above: Performed By: #### L 500.4050, L100.0100, L700.6800 #### [facility] [address] [place], [address] AST [Catalytic activity/Vol] 20 U/L Normal <=31 [facility] Comment on above: Performed By: #### L 500.4050, L100.0100, L700.6800 #### [facility] [address] [place], [address] Bilirubin [Mass/Vol] 0.48 mg/dL Normal 0.00-1.30 [facility] Comment on above: Performed By: #### L 500.4050, L100.0100, L700.6800 #### [facility] [address] [place], [address] BUN/CRE 18.1 RATIO Normal 10-20 [facility] Comment on above: Performed By: #### L 500.4050, L100.0100, L700.6800 #### [facility] [address] [place], [address] Calcium [Mass/Vol] 9.4 mg/dL Normal 7.6-11.0 [facility] Comment on above: Performed By: #### L 500.4050, L100.0100, L700.6800 #### [facility] [address] [place], [address] Chloride [Moles/Vol] 100 mmol/L Normal 98-108 [facility] Comment on above: Performed By: #### L 500.4050, L100.0100, L700.6800 #### [facility] [address] [place], [address] CO2 [Moles/Vol] 22.4 mmol/L Normal 21.0-32.0 [facility] Comment on above: Performed By: #### L 500.4050, L100.0100, L700.6800 #### [facility] [address] [place], [address] Creatinine [Mass/Vol] 0.61 mg/dL Low 0.70-1.20 [facility] Comment on above: Performed By: #### L 500.4050, L100.0100, L700.6800 #### [facility] [address] [place], [address] ECRCL 115.39 ml/min Normal 50-250 [facility] Comment on above: Performed By: #### L 500.4050, L100.0100, L700.6800 #### [facility] [address] [place], [address] GAP 14 Normal 5-15 [facility] Comment on above: Performed By: #### L 500.4050, L100.0100, L700.6800 #### [facility] [address] [place], [address] GFR/1.73 sq M.predicted among non-blacks MDRD (S/P/Bld) [Vol rate/Area] 122 mL/min/{1.73_m2} Normal >[address] [facility] [place] Comment on above: Result Comment: mL/m in/1.73m2 CKD-EPI Creatinine Equation (2020) Performed By: #### L 500.4050, L100.0100, L700.6800 #### [facility] [address] [place], [address] Globulin (S) [Mass/Vol] 2.9 g/dL Normal 2.2-4.2 [facility] Comment on above: Performed By: #### L 500.4050, L100.0100, L700.6800 #### [facility] [address] [place], [address] Glucose [Mass/Vol] 124 mg/dL High 70-99 [facility] Comment on above: Performed By: #### L 500.4050, L100.0100, L700.6800 #### [facility] [address] [place], [address] Potassium [Moles/Vol] 3.6 mmol/L Normal 3.3-5.1 [facility] Comment on above: Performed By: #### L 500.4050, L100.0100, L700.6800 #### [facility] [address] [place], [address] Sodium [Moles/Vol] 136 mmol/L Normal 133-145 [facility] Comment on above: Performed By: #### L 500.4050, L100.0100, L700.6800 #### [facility] [address] [place], [address] T PROT 7.9 g/dL Normal 5.9-8.4 [facility] Comment on above: Performed By: #### L 500.4050, L100.0100, L700.6800 #### [facility] [address] [place], [address] Urea nitrogen [Mass/Vol] 11 mg/dL Normal 4-19 [facility] Comment on above: Performed By: #### L 500.4050, L100.0100, L700.6800 #### [facility] [address] [place], [address] Emergency Department Summary on 09-01-2025 Emergency Department Summary [facility] Medical Records Department [address] [facility] [place] [address] Emergency Department Summary 09/01/25 MR#: [id number] Acct: [id number] Name: MECCA FRANKLIN Rep #: [id number] : 1995 29 From: Dilshad Jones DO PCP: Dr. Dania Whitfield DO Status:REG ER Location: ED HPI HPI - Female History of Present Illness Chief Complaint: Vag Bld, Preg Narrative Narrative: Patient is a 29-year-old female with past medical history of anemia who presents to the emergency department the chief complaint of abdominal pain. Patient states that for the last week she has been dealing with a miscarriage which she states that her last hCG quant was around 605 she is following with [employer] REPAIRER about this. She states that the pain had been progressively worsening prompting her to come here for further evaluation management she states that she originally had worsening abdominal pain in the upper portion of her abdomen and now it is in the lower portion. Patient denies any sick contacts. [facility] Medical History Anemia Home Medications ???Medication ???Instructions ???Recorded ???Last Taken ???Type ferrous sulfate 325 mg (65 mg 150 mg PO DAILY 10/23/23 Unknown H istory iron) tablet (Feosol) dapsone 6 %-spironolactone 5 applic topical 11/01/24 Unknown Hi story %-niacinamide 2 % topical cream mv-mn no.97-folic 180 mcg-dha 25 1 tab PO BID 11/01/24 Unknown Hist ory mg-herb no.293 25 mg chewable tablet (Alive Daily Support ) letrozole 2.5 mg tablet 5 mg (2 x 2.5 mg) PO DAILY #10 tab s 02/20/25 Unknown Rx Allergy/AdvReac Type Severity Reaction Status Date / Time amoxicillin (From Augmentin) Allergy Mild Hives Verified 09/01/25 20:21 clavulanic acid (From Allergy Mild Hives Verified 09/01/25 20:21 Augmentin) Family History Grandmother Skin cancer Grandfather Skin cancer CVA (cerebral vascular accident) Father CVA (cerebral vascular accident) Hypertension Brother Hypertension Social History adopted: No household members: spouse housing: house current occupational status: employed 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[employer] current occupational exposures/hazards: Yes pets and animals: Yes pets and animals: cat(s) and dog(s) history of recent travel: No sexually active: Yes Smoking Status: Never smoker alcohol intake: current details: socially substance use type: does not use diet: gluten free caffeine: Yes deanna/yazidism: Taoism seatbelt use: always do you feel safe at home: Yes 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 ROS ED ROS Narrative Constitutional: Denies any fevers, chills, headaches Eyes: Denies double vision blurry vision changes vision Cardiovascular: Denies chest pain Respiratory: Denies shortness of breath Abdomen: Complains of abdominal pain as noted above Neurological: Denies numbness, weakness, tingling Musculoskeletal: Denies back pain Skin: Denies any rashes or lesions EXAM Physical Exam Narrative Exam Narrative: General: Patient was lying in bed rest comfortably did not appear to be acute distress Head: Atraumatic, normocephalic Eyes: PERRL bilaterally, EOMI bilaterally, no conjunctival injection noted Neck: Soft, supple, trachea midline Cardiovascular: Patient tachycardic with a regular rhythm Respiratory: Clear to auscultation bilaterally Abdomen: Soft, nondistended, diffuse tenderness to palpation Extremities: +5/5 strength noted in the bilateral upper and lower extremities Neurological: Patient following commands knew that she was at [facility] year is 2024 Skin: Warm, dry, intact no rashes or lesions noted Const Vital Signs: 09/01/25 20:21 09/01/25 21:20 09/01/25 21:23 Temperature 96.9 F L 98 F 98.2 F Temperature Source Temporal Oral Oral Pulse Rate 119 H 86 83 Respiratory Rate 22 H 16 19 H Blood Pressure 161/95 H 124/90 H 131/84 H Blood Pressure Mean 117 101 99 Pulse Ox 100 99 1 Oxygen Delivery Method Room Air Room Air 09/01/25 22:00 09/01/25 23:00 09/02/25 00:00 Temperature 97.8 F 99.1 F Temperature Source Oral Oral Pulse Rate 88 90 85 Respiratory Rate 17 18 16 Blood Pressure 118/80 115/67 117/57 L Blood Pressure Mean 92 83 77 Pulse Ox 100 98 97 Oxygen Delivery Method Room Air Room Air Room Air MDM MDM MDM Narrative Medical decision making narrative: Patient is a 29-year-old female who presents to the emergency department the chief complaint of abdominal pain. On the differential diagnosis includes but not limited to ectopic , endometritis, appendicitis, cholecystitis, pancreatitis. Once the w (more content not included)... Normal [facility] Glomerular filtration rate ( GFR) estimation/1.73 sq m using serum, plasma, or whole bOrdered By: Dilshad Jones on 09-01-2025 GFR/1.73 sq M.predicted among non-blacks MDRD (S/P/Bld) [Vol rate/Area] 122 mL/min/{1.73_m2} >[address] [place] Comment on above: mL/min/1.73m2 CKD-EP I Creatinine Equation (2020) Ketones Test strip Ql (U)Ord ered By: Dilshad Jones on 09-01-2025 Ketones Ql (U) 15 mg/dl High Negative [facility] - Chemistry and C hemistry - challengeOrdered By: Dilshad Jones on 09-01-2025 AST [Catalytic activity/Vol] 20 U/L <32 [facility] Lactic Acidon 09-01-2025 Lactate [Moles/Vol] mmol/L Normal 0.0-2.0 [facility] Comment on above: Order Comment: Y Performed By: #### L 503.6005, M200.1000 #### [facility] [address] [place], [address] Lactic acid measurementOrder ed By: Dilshad Jones on 09-01-2025 Lactate [Moles/Vol] mmol/L 0.0-2.0 [facility] Microscopic analysis of urin e for red blood cells (RBC)Ordered By: Dilshad Jones on 09-01-2025 Microscopic analysis of urine for red blood cells (RBC) 0-5 SEEN /hpf 0-5 [facility] Mucus LM Ql (Urine sed)Order ed By: Dilshad Joens on 09-01-2025 Mucus Ql (Urine sed) 0 SEEN /hpf [facility] Nitrite Test strip Ql (U)Ord ered By: Dilshad Jones on 09-01-2025 Nitrite Ql (U) Negative Negative [facility] Potassium measurement (mass/ volume)Ordered By: Dilshad Jones on 09-01-2025 Potassium (Unsp spec) [Mass/Vol] 3.6 mmol/L 3.3-5.1 [facility] ,Serum,hCG Quali.on 09-01-2025 HCG, SERUM QUAL Positive Normal [facility] Comment on above: Result Comment: CRIT ICAL VALUE CALLED TO TONY HOLLY 09/01/252101 Emily Degroot. RESULTS READ BACK BY SAME. Performed By: #### L 500.4050, L100.0100, L700.6800 #### [facility] [address] [place], [place], [address] Protein Test strip Ql (U)Ord ered By: Dilshad Jones on 09-01-2025 Protein Ql (U) 15 mg/dl High Negative [facility] Serum beta-hCG test, qualita tiveOrdered By: Dilshad Jones on 09-01-2025 Beta HCG ( test) Ql Negative [facility] Comment on above: CRITICAL VALUE LONG Fadia [id number] Emily Degroot.RESULTS READ BACK BY SAME. Serum creatinine measurement (mass/volume)Ordered By: Dilshad Jones on 09-01-2025 Creatinine [Mass/Vol] 0.61 mg/dL Low 0.70-1.20 [facility] Serum globulin measurementOr dered By: Dilshad Jones on 09-01-2025 Globulin (S) [Mass/Vol] 2.9 g/dL 2.2-4.2 [facility] [place] Serum glucose measurement (m ass/volume)Ordered By: Dilshad Jones on 09-01-2025 Glucose [Mass/Vol] 124 mg/dL High 70-99 [facility] Serum human chorionic gonado tropin detection for pregnancyOrdered By: Dilshad Jones on 09-01-2025 HCG ( test) Ql 390 mIU/mL High <9 [facility] [place] Comment on above: Gestational Age0.2-1 Week: 5-50 mIU/mL1-2 Weeks: 50-500 mIU/mL2-3 Weeks: 100-5000 mIU/mL3-4 Weeks: 500-10,000 mIU/mL4-5 Weeks:1000-50,000 mIU/mL5-6 Weeks: 10,000-100,000 mIU/mL6-8 Weeks: 15,000-200,000 mIU/mL2-3 Months:10,000-100,000 mIU/mL Serum or plasma alanine phillips otransferase (ALT) measurementOrdered By: Dilshad Jones on 09-01-2025 ALT [Catalytic activity/Vol] 17 U/L <35 [facility] Serum or plasma albumin bruce urement (mass/volume)Ordered By: Dilshad Jones on 09-01-2025 Albumin [Mass/Vol] 5.0 g/dL 3.5-5.0 [facility] Serum or plasma albumin/glob ulin mass ratioOrdered By: Dilshad Jones on 09-01-2025 Albumin/Globulin [Mass ratio] 1.7 {ratio} 0.9-2.4 [facility] Serum or plasma alkaline manuel sphatase measurementOrdered By: Dilshad Jones on 09-01-2025 ALP [Catalytic activity/Vol] 59 U/L 35-104 [facility] Serum or plasma calcium bruce urement (mass/volume)Ordered By: Dilshad Jones on 09-01-2025 Calcium [Mass/Vol] 9.4 mg/dL 7.6-11.0 [facility] Serum or plasma urea nitroge n measurement (mass/volume)Ordered By: Dilshad Jones on 09-01-2025 Urea nitrogen [Mass/Vol] 11 mg/dL 4-19 [facility] Sodium levelOrdered By: Kindra Jones on 09-01-2025 Sodium [Moles/Vol] 136 mmol/L 133-145 [facility] Squamous epithelial cells de tection in urine sediment by light microscopyOrdered By: Dilshad Jones on 09-01-2025 Epithelial cells.squamous LM Ql (Urine sed) 0-5 SEEN /hpf 5-10 [facility] Total proteinOrdered By: Kiko Jones on 09-01-2025 Protein [Mass/Vol] 7.9 g/dL 5.9-8.4 [facility] Transitional cells detection in urine sediment by light microscopyOrdered By: Dilshad Jones on 09-01-2025 Transitional cells LM Ql (Urine sed) 0-5 SEEN /hpf 0-5 [facility] Transvaginal w/Preg USon Transvaginal w/Preg US [facility] [address] [place] [address] Transvaginal w/Preg US MR#: [id number] Acct: [id number] Name: MECCA FRANKLIN Rep #: [id number] : 1995 F 29 From: Liam Matute MD PCP: Dr. 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 FINDINGS Anteverted uterus appears normal in size and smooth in contour, measuring 9.2 x 5.4 x 4.3 cm. No discrete uterine myoma is seen. Arcuate versus septate uterine morphology. Endometrial stripe complex appears within normal limits measuring up to 1.6 cm. No intrauterine gestational sac or sac-like structure is seen to confirm an IUP. The cervix is closed. Left ovary has a normal sonographic appearance. The right ovary appears normal, however there is a large complex partially cystic and solid echogenic mass in the right adnexal region, which measures approximately up to 9.6 x 5.3 x 2.5 cm. Small amount of nonspecific free fluid in the cul-de-sac. US/Transvaginal w/Preg US IMPRESSION: No intrauterine gestational sac or sac-like structure to confirm an IUP. There is probable arcuate versus septate uterine morphology. There is a large heterogeneous partially solid and cystic right adnexal mass, which appears separate from the ovary. Findings are suspicious for ectopic , given the absence of an IUP. Recommend clinical correlation with serum beta HCG level, and Knockout Machine Operator consultation. Reading Location: [id number] CC: Dr. Dania Whitfield DO; Dr. Dilshad Jones DO Card Assembler: Signed Normal [facility] Urinalysis, Completeon 09-01 EPI,SQUAMOUS 0-5 SEEN Normal 5-10 [facility] Comment on above: Order Comment: Y Performed By: #### L 503.6005, M200.1000 #### [facility] [address] [place], [place], [address] EPI,TRANSITION 0-5 SEEN Normal 0-5 [facility] Comment on above: Order Comment: Y Performed By: #### L 503.6005, M200.1000 #### [facility] [address] [place], [address] RBC 0-5 SEEN Normal 0-5 [facility] Comment on above: Order Comment: Y Performed By: #### L 503.6005, M200.1000 #### [facility] [address] [place], [address] WBC 0-5 SEEN Normal 0-5 [facility] Comment on above: Order Comment: Y Performed By: #### L 503.6005, M200.1000 #### [facility] [address] [place], [address] BACTERIA 0 SEEN Normal None Seen [facility] Comment on above: Order Comment: Y Performed By: #### L 503.6005, M200.1000 #### [facility] [address] [place], [address] Mucus Ql (Urine sed) 0 SEEN Normal [facility] Comment on above: Order Comment: Y Performed By: #### L 503.6005, M200.1000 #### [facility] [address] [place], [address] Urine clarityOrdered By: Kiko Jones on 09-01-2025 Clarity (U) Clear Clear [facility] Urine color determinationOrd ered By: Dilshad Jones on 09-01-2025 Color (U) Straw Yellow [facility] Urine cultureOrdered By: Kiko Jones on 09-01-2025 Bacteria identified Cx Nom (U) Positive Abnormal [facility] Urine glucose detectionOrder ed By: Dilshad Jones on 09-01-2025 Glucose Ql (U) Normal mg/dl Normal [facility] Urine leukocyte esterase det ection by dipstickOrdered By: Dilshad Jones on 09-01-2025 Leukocyte esterase Test strip Ql (U) Negative Negative [facility] Urine pHOrdered By: Dilshad lock on 09-01-2025 pH (U) 6.0 [pH] 5.0 - 8.0 [facility] Urine sediment bacteria coun t by microscopy (number/high power field)Ordered By: Dilshad Jones on 09-01-2025 Bacteria LM.HPF (Urine sed) [#/Area] 0 /[HPF] None Seen [facility] Urine specific gravity measu rementOrdered By: Dilshad Jones on 09-01-2025 Specific gravity (U) [Rel density] 1.010 1.002-1.030 [facility] Urine urobilinogen measureme ntOrdered By: Dilshad Jones on 09-01-2025 Urobilinogen Ql (U) Normal mg/dl Normal [facility] White blood cell countOrdere d By: Dilshad Jones on 09-01-2025 White blood cell count 0-5 SEEN /hpf 0-5 [facility] hCG Titer Quant., Serumon HCG QUANT. 390 mIU/mL High <9 non-preg [facility] Comment on above: Result Comment: Gest ational Age 0.2-1 Week: 5-50 mIU/mL 1-2 Weeks: 50-500 mIU/mL 2-3 Weeks: 100-5000 mIU/mL 3-4 Weeks: 500-10,000 mIU/mL 4-5 Weeks:1000-50,000 mIU/mL 5-6 Weeks: 10,000-100,000 mIU/mL 6-8 Weeks: 15,000-200,000 mIU/mL 2-3 Months:10,000-100,000 mIU/mL Performed By: #### L 700.8000 #### [facility] [address], [place], [id number] Absolute lymphocyte countOrd ered By: HEALTH ASSESSMENT on 08-14-2025 Lymphocytes Auto (Unsp spec) [#/Vol] 1.61 10*3/uL 0.83-4.51 [facility] Absolute neutrophil countOrd ered By: HEALTH ASSESSMENT on 08-14-2025 Neutrophils (Bld) [#/Vol] 4.1 10*3/uL 2.0-7.7 [facility] Absolute nucleated red blood cell countOrdered By: HEALTH ASSESSMENT on 08-14-2025 Nucleated RBC (Bld) [#/Vol] 0.00 10*3/uL 0-5 [facility] Anion gap in Serum or Plasma Ordered By: HEALTH ASSESSMENT on 08-14-2025 Anion gap [Moles/Vol] 12 mmol/L 5-15 [facility] BUN/creatinine ratioOrdered By: HEALTH ASSESSMENT on 08-14-2025 Urea nitrogen/Creatinine [Mass ratio] 15.0 mg/mg 10-20 [facility] Comment on above: Previous reported re sult: 14.7 RATIOEdited by: AUTOINS on 08/14/25:0957 AMENDED REPORT 08/14/25956 BUN/CRE previously reported as: 14.7 RATIO Bilirubin Test strip Ql (U)O rdered By: HEALTH ASSESSMENT on 08-14-2025 Bilirubin Ql (U) Negative Negative [facility] Bilirubin directOrdered By: HEALTH ASSESSMENT on 08-14-2025 Bilirubin.direct [Mass/Vol] 0.23 mg/dL 0.00-0.30 [facility] Comment on above: Previous reported re sult: 0.22 mg/dLEdited by: AUTOINS on 08/14/25:0957 AMENDED REPORT 08/14/25956 D BILI previously reported as: 0.22 mg/dL Bilirubin, totalOrdered By: HEALTH ASSESSMENT on 08-14-2025 Bilirubin [Mass/Vol] 0.60 mg/dL 0.00-1.30 [facility] Comment on above: Previous reported re sult: 0.57 mg/dLEdited by: AUTOINS on 08/14/25:0957 AMENDED REPORT 08/14/25956 T BILI previously reported as: 0.57 mg/dL CBC, Employeeon 08-14-2025 Absolute Lymph 1.61 X10 3/uL Normal 0.83-4.51 [facility] Comment on above: Performed By: #### L 503.6005, M200.1000 #### [facility] [address] [place], [address] Absolute Neut 4.1 X10 3/uL Normal 2.0-7.7 [facility] Comment on above: Performed By: #### L 503.6005, M200.1000 #### [facility] [address] [place], [address] Basophils/100 WBC (Bld) 0.3 % Normal 0-1 [facility] Comment on above: Performed By: #### L 503.6005, M200.1000 #### [facility] [address] [place], [address] Eosinophils/100 WBC (Bld) 4.3 % Normal 0-5 [facility] Comment on above: Performed By: #### L 503.6005, M200.1000 #### [facility] [address] [place], [address] Erythrocyte distribution width (RBC) [Ratio] 12.5 % Normal 11.6-14.6 [facility] Comment on above: Performed By: #### L 503.6005, M200.1000 #### [facility] [address] [place], [address] Hematocrit (Bld) [Volume fraction] 42.1 % Normal 37-47 [facility] Comment on above: Performed By: #### L 503.6005, M200.1000 #### [facility] [address] [place], [address] Hemoglobin (Bld) [Mass/Vol] 14.3 g/dL Normal 12.0-15.0 [facility] Comment on above: Performed By: #### L 503.6005, M200.1000 #### [facility] [address] [place], [address] Lymphocytes/100 WBC (Bld) 24.8 % Normal 19-41 [facility] Comment on above: Performed By: #### L 503.6005, M200.1000 #### [facility] [address] [place], [address] MCH (RBC) [Entitic mass] 30.2 pg Normal 27.0-32.0 [facility] [facility] Comment on above: Performed By: #### L 503.6005, M200.1000 #### [facility] [address] [place], [address] MCHC (RBC) [Mass/Vol] 34.0 g/dL Normal 32-36 [facility] Comment on above: Performed By: #### L 503.6005, M200.1000 #### [facility] [address] [place], [address] MCV (RBC) [Entitic vol] 89.0 fL Normal 81-99 [facility] [place] Comment on above: Performed By: #### L 503.6005, M200.1000 #### [facility] [address] [place], [address] Monocytes/100 WBC (Bld) 7.6 % Normal 0-10 [facility] [place] Comment on above: Performed By: #### L 503.6005, M200.1000 #### [facility] [address] [place], [address] Neutrophils/100 WBC (Bld) 62.8 % Normal 47-70 [facility] Comment on above: Performed By: #### L 503.6005, M200.1000 #### [facility] [address] [place], [address] NRBC # 0.00 10 3/uL Normal 0-5 [facility] Comment on above: Performed By: #### L 503.6005, M200.1000 #### [facility] [address] [place], [address] Nucleated RBC (Bld) [#/Vol] 0 10*3/uL Normal 0-5 [facility] Comment on above: Performed By: #### L 503.6005, M200.1000 #### [facility] [address] [place], [address] Platelet mean volume (Bld) [Entitic vol] 11.0 fL Normal 6.2-12.0 [facility] Comment on above: Performed By: #### L 503.6005, M200.1000 #### [facility] [address] [place], [address] Platelets (Bld) [#/Vol] 214 10*3/uL Normal 150-450 [facility] Comment on above: Performed By: #### L 503.6005, M200.1000 #### [facility] [address] [place], [address] RBC (Bld) [#/Vol] 4.73 10*6/uL Normal 4.2-5.4 [facility] Comment on above: Performed By: #### L 503.6005, M200.1000 #### [facility] [address] [place], [address] RDW SD 41.1 fl Normal 35.1-43.9 [facility] Comment on above: Performed By: #### L 503.6005, M200.1000 #### [facility] [address] [place], [address] WBC (Bld) [#/Vol] 6.5 10*3/uL Normal 4.4-11.0 [facility] Comment on above: Performed By: #### L 503.6005, M200.1000 #### [facility] [address] [place], [address] Calculated very low density lipoprotein (VLDL) cholesterol measurementOrdered By: HEALTH ASSESSMENT on 08-14-2025 Calculated very low density lipoprotein (VLDL) cholesterol measurement 11 mg/dL 5-40 [facility] Carbon dioxide, total [Moles /volume] in Central venous bloodOrdered By: HEALTH ASSESSMENT on 08-14-2025 CO2 [Moles/Vol] 21.3 mmol/L 21.0-32.0 [facility] Comment on above: Previous reported re sult: 21.5 mmol/LEdited by: AUTOINS on 08/14/25:0957 AMENDED REPORT 08/14/2557 CO2 previously reported as: 21.5 mmol/L Chloride assayOrdered By: HE ALTH ASSESSMENT on 08-14-2025 Chloride [Moles/Vol] 104 mmol/L 98-108 [facility] Employee Profileon LDH 196 U/L Normal 84-246 [facility] Comment on above: Performed By: #### L 503.6005, M200.1000 #### [facility] [address] [place], [address] Phosphate [Mass/Vol] 3.5 mg/dL Normal 2.7-4.5 [facility] Comment on above: Performed By: #### L 503.6005, M200.1000 #### [facility] [address] [place], [address] URIC 4.0 mg/dL Normal 2.6-6.0 [facility] Comment on above: Result Comment: The drugs N-Acetylcysteine and Metamizole may falsely depress this assay. Performed By: #### L 503.6005, M200.1000 #### [facility] [address] [place], [address] Erythrocyte distribution wid th ratioOrdered By: HEALTH ASSESSMENT on 08-14-2025 Erythrocyte distribution width (RBC) [Ratio] 12.5 % 11.6-14.6 [facility] Erythrocyte distribution wid th standard deviationOrdered By: HEALTH ASSESSMENT on 08-14-2025 Erythrocyte distribution width (RBC) [Ratio] 41.1 fl 35.1-43.9 [facility] Glomerular filtration rate ( GFR) estimation/1.73 sq m using serum, plasma, or whole bOrdered By: HEALTH ASSESSMENT on 08-14-2025 GFR/1.73 sq M.predicted among non-blacks MDRD (S/P/Bld) [Vol rate/Area] 119 mL/min/{1.73_m2} >60 [facility] [place] Comment on above: mL/min/1.73m2 CKD-EP I Creatinine Equation (2020) Hematocrit Auto (Bld) [Volum e fraction]Ordered By: HEALTH ASSESSMENT on 08-14-2025 Hematocrit (Bld) [Volume fraction] 42.1 % 37-47 [facility] Hemoglobin measurementOrdere d By: HEALTH ASSESSMENT on 08-14-2025 Hemoglobin (Bld) [Mass/Vol] 14.3 g/dL 12.0-15.0 [facility] Ketones Test strip Ql (U)Ord ered By: HEALTH ASSESSMENT on 08-14-2025 Ketones Ql (U) Negative Negative [facility] LDL calc ser/plasOrdered By: HEALTH ASSESSMENT on 08-14-2025 Cholesterol in LDL [Mass/Vol] 78 mg/dL [facility] Comment on above: Hngfekilbb=560-767 m g/dL & Higher Fsqf=513 mg/dL or greaterFriedwald Equation for LDL-C Laboratory - Chemistry and C hemistry - challengeOrdered By: HEALTH ASSESSMENT on 08-14-2025 AST [Catalytic activity/Vol] 19 U/L <32 [facility] Lactate dehydrogenase (LDH) measurementOrdered By: HEALTH ASSESSMENT on 08-14-2025 LDH [Catalytic activity/Vol] 196 U/L 84-246 [facility] MCV (mean corpuscular volume ) determinationOrdered By: HEALTH ASSESSMENT on 08-14-2025 MCV (RBC) [Entitic vol] 89.0 fL 81-99 [facility] Mean corpuscular hemoglobin (MCH) determinationOrdered By: HEALTH ASSESSMENT on 08-14-2025 MCH (RBC) [Entitic mass] 30.2 pg 27.0-32.0 [facility] Mean corpuscular hemoglobin concentration (MCHC) determinationOrdered By: HEALTH ASSESSMENT on 08-14-2025 MCHC (RBC) [Mass/Vol] 34.0 g/dL 32-36 [facility] Mean platelet volume determi nationOrdered By: HEALTH ASSESSMENT on 08-14-2025 Platelet mean volume (Bld) [Entitic vol] 11.0 fL 6.2-12.0 [facility] Neutrophil percentageOrdered By: HEALTH ASSESSMENT on 08-14-2025 Neutrophils/100 WBC (Bld) 62.8 % 47-70 [facility] Nitrite Test strip Ql (U)Ord ered By: HEALTH ASSESSMENT on 08-14-2025 Nitrite Ql (U) Negative Negative [facility] Nucleated red blood cell per centageOrdered By: HEALTH ASSESSMENT on 08-14-2025 Nucleated RBC/100 WBC (Bld) [Ratio] 0 % 0-5 [facility] Platelet countOrdered By: HE ALTH ASSESSMENT on 08-14-2025 Platelets (Bld) [#/Vol] 214 10*3/uL 150-450 [facility] Potassium measurement (mass/ volume)Ordered By: HEALTH ASSESSMENT on 08-14-2025 Potassium (Unsp spec) [Mass/Vol] 4.0 mmol/L 3.3-5.1 [facility] Protein Test strip Ql (U)Ord ered By: HEALTH ASSESSMENT on 08-14-2025 Protein Ql (U) Negative Negative [facility] RBC Auto (Bld) [#/Vol]Ordere d By: HEALTH ASSESSMENT on 08-14-2025 RBC (Bld) [#/Vol] 4.73 10*6/uL 4.2-5.4 [facility] Screening total cholesterol/ high density lipoprotein (HDL) cholesterol ratioOrdered By: HEALTH ASSESSMENT on 08-14-2025 Cholesterol.total/Choleste rol in HDL [Mass ratio] 3.40 {ratio} [facility] Serum creatinine measurement (mass/volume)Ordered By: HEALTH ASSESSMENT on 08-14-2025 Creatinine [Mass/Vol] 0.68 mg/dL Low 0.70-1.20 [facility] Comment on above: Previous reported re sult: 0.70 mg/dLEdited by: AUTOINS on 08/14/25:0957 AMENDED REPORT 08/14/25 0957 CREAT,SERUM previously reported as: 0.70 mg/dL Serum globulin measurementOr dered By: HEALTH ASSESSMENT on 08-14-2025 Globulin (S) [Mass/Vol] 2.4 g/dL 2.2-4.2 [facility] [place] Serum glucose measurement (m ass/volume)Ordered By: HEALTH ASSESSMENT on 08-14-2025 Glucose [Mass/Vol] 90 mg/dL 70-99 [facility] Serum or plasma alanine phillips otransferase (ALT) measurementOrdered By: HEALTH ASSESSMENT on 08-14-2025 ALT [Catalytic activity/Vol] 16 U/L <35 [facility] Serum or plasma albumin bruce urement (mass/volume)Ordered By: HEALTH ASSESSMENT on 08-14-2025 Albumin [Mass/Vol] 4.5 g/dL 3.5-5.0 [facility] Comment on above: Previous reported re sult: 4.3 g/dLEdited by: AUTOINSedrick on 08/14/25:0957 AMENDED REPORT 08/14/2557 ALB previously reported as: 4.3 g/dL Serum or plasma albumin/glob ulin mass ratioOrdered By: HEALTH ASSESSMENT on 08-14-2025 Albumin/Globulin [Mass ratio] 1.8 {ratio} 0.9-2.4 [facility] Serum or plasma alkaline manuel sphatase measurementOrdered By: HEALTH ASSESSMENT on 08-14-2025 ALP [Catalytic activity/Vol] 47 U/L 35-104 [facility] Serum or plasma calcium bruce urement (mass/volume)Ordered By: HEALTH ASSESSMENT on 08-14-2025 Calcium [Mass/Vol] 9.0 mg/dL 7.6-11.0 [facility] Serum or plasma cholesterol in HDL measurement (mass/volume)Ordered By: HEALTH ASSESSMENT on 08-14-2025 Cholesterol in HDL [Mass/Vol] 37 mg/dL Low >40 [facility] Comment on above: National Cholesterol Education Program (NCEP) guidelines:<40 mg/dL: Low HDL-cholesterol (major risk factor for CHD)>= 60 mg/dL: High HDL-cholesterol (negative risk factor for CHD)HDL-cholesterol is affected by a number of factors, e.g. smoking, exercise, hormones, sex and age. Serum or plasma cholesterol measurement (mass/volume)Ordered By: HEALTH ASSESSMENT on 08-14-2025 Cholesterol [Mass/Vol] 126 mg/dL <201 [facility] Comment on above: Cholesterol level, D esirable <200 mg/dLBorderline high cholesterol 200-239 mg/dLHigh cholesterol >=240 mg/dLRecommendations of the NCEP Adult Treatment Panel for the following risk-cutoff thresholds for the [place] population. Serum or plasma urea nitroge n measurement (mass/volume)Ordered By: HEALTH ASSESSMENT on 08-14-2025 Urea nitrogen [Mass/Vol] 10 mg/dL 4-19 [facility] Serum or plasma uric acid me asurement (mass/volume)Ordered By: HEALTH ASSESSMENT on 08-14-2025 Urate [Mass/Vol] 4.0 mg/dL 2.6-6.0 [facility] Comment on above: The drugs N-Acetylcy steine and Metamizole may falsely depress this assay. Sodium levelOrdered By: HEAL ASSESSMENT on 08-14-2025 Sodium [Moles/Vol] 137 mmol/L 133-145 [facility] Comment on above: Previous reported re sult: 138 mmol/LEdited by: AUTOINS on 08/14/25:0957 AMENDED REPORT 08/14/2557 NA previously reported as: 138 mmol/L Total proteinOrdered By: HEA [facility] ASSESSMENT on 08-14-2025 Protein [Mass/Vol] 6.9 g/dL 5.9-8.4 [facility] Triglycerides measurementOrd ered By: HEALTH ASSESSMENT on 08-14-2025 Triglyceride [Mass/Vol] 53 mg/dL <199 [facility] [place] Comment on above: The drugs N-Acetylcy steine and Metamizole may falsely depress this assay. Normal range: <150 mg/dLBorderline High: 150-199 mg/dLHigh: 200-499 mg/dLVery High: >500 mg/dL Urinalysis, Employeeon 08-14 BILIRUBIN URINE Negative Normal Negative [facility] Comment on above: Order Comment: Y Performed By: #### L 503.6005, M200.1000 #### [facility] [address] [place], [address] Clarity (U) Sl. Cloudy Normal Clear [facility] Comment on above: Order Comment: Y Performed By: #### L 503.6005, M200.1000 #### [facility] [address] [place], [address] Color (U) Yellow Normal Yellow [facility] Comment on above: Order Comment: Y Performed By: #### L 503.6005, M200.1000 #### [facility] [address] [place], [address] GLUCOSE, UR Normal Normal Normal [facility] Comment on above: Order Comment: Y Performed By: #### L 503.6005, M200.1000 #### [facility] [address] [place], [address] KETONE UR Negative Normal Negative [facility] Comment on above: Order Comment: Y Performed By: #### L 503.6005, M200.1000 #### [facility] [address] [place], [address] LEUK ESTERASE Negative Normal Negative [facility] Comment on above: Order Comment: Y Performed By: #### L 503.6005, M200.1000 #### [facility] [address] [place], [address] Nitrite Ql (U) Negative Normal Negative [facility] Comment on above: Order Comment: Y Performed By: #### L 503.6005, M200.1000 #### [facility] [address] [place], [address] OCCULT BLOOD-UR Negative Normal Negative [facility] Comment on above: Order Comment: Y Performed By: #### L 503.6005, M200.1000 #### [facility] [address] [place], [address] pH UR 8.0 Normal 5.0 - 8.0 [facility] Comment on above: Order Comment: Y Performed By: #### L 503.6005, M200.1000 #### [facility] [address] [place], [address] PROT DIPSTX Negative Normal Negative [facility] Comment on above: Order Comment: Y Performed By: #### L 503.6005, M200.1000 #### [facility] [address] [place], [address] SP.GR. DIPSTX 1.010 Normal 1.002-1.030 [facility] Comment on above: Order Comment: Y Performed By: #### L 503.6005, M200.1000 #### [facility] [address] [place], [address] UROBILI Normal Normal Normal [facility] Comment on above: Order Comment: Y Performed By: #### L 503.6005, M200.1000 #### [facility] [address] [place], [place], [id number] Urine clarityOrdered By: Daisha [facility] ASSESSMENT on 08-14-2025 Clarity (U) Sl. Cloudy Clear [facility] Urine color determinationOrd ered By: HEALTH ASSESSMENT on 08-14-2025 Color (U) Yellow Yellow [facility] Urine glucose detectionOrder ed By: HEALTH ASSESSMENT on 08-14-2025 Glucose Ql (U) Normal mg/dl Normal [facility] Urine leukocyte esterase det ection by dipstickOrdered By: HEALTH ASSESSMENT on 08-14-2025 Leukocyte esterase Test strip Ql (U) Negative Negative [facility] Urine pHOrdered By: HEALTH A SSESSMENT on 08-14-2025 pH (U) 8.0 [pH] 5.0 - 8.0 [facility] Urine specific gravity measu rementOrdered By: HEALTH ASSESSMENT on 08-14-2025 Specific gravity (U) [Rel density] 1.010 1.002-1.030 [facility] Urine urobilinogen measureme ntOrdered By: HEALTH ASSESSMENT on 08-14-2025 Urobilinogen Ql (U) Normal mg/dl Normal [facility] White blood cell (WBC) count Ordered By: HEALTH ASSESSMENT on 08-14-2025 WBC (Bld) [#/Vol] 6.5 10*3/uL 4.4-11.0 [facility] Hepatitis C,RNA PCR Viral Lo top installer 04-09-2025 HCV log 10 TNP Normal . [facility] Comment on above: Performed By: #### L 503.6005, M200.1000 #### [facility] [address] [place], [place], [address] HCV QT RNA PCR Not detected Normal . [facility] Comment on above: Performed By: #### L 503.6005, M200.1000 #### [facility] [address] [place], [place], [address] TEST INFO: Comment Normal . [facility] Comment on above: Result Comment: The quantitative range of this assay is 15 IU/mL to 100 million IU/mL. Performed By: #### L 503.6005, M200.1000 #### [facility] [address] [place], [place], [address] L3400.0005on 04-09-2025 V ZOSTER IgG Reactive Normal Non Reactive [facility] Comment on above: Result Comment: Pl ease note reference interval change A Reactive result is considered evidence of immunity to VZV. Reactive indicates that VZV IgG was detected consistent with previous infection and/or vaccination. A Non Reactive result indicates that VZV IgG was not detected suggesting that immunity has not been acquired. Performed at: [address] [id number] Coil Taper: Anibal Romano MD, Phone: [phone] Performed at: [address] [id number] Coil Taper: Gonzalo Sevilla PhD, Phone: [phone] Performed By: #### L 503.6005, M200.1000 #### [facility] [address] [place], [place], [id number] 04-06-2025 ABO and Rh group Nom (Bld) Blood group B Rh(D) positive Normal [facility] Comment on above: Performed By: #### L 503.6005, M200.1000 #### [facility] [address] [place], [address] HIVon 04-06-2025 HIV Non-Reactive Normal Nonreactive [facility] Comment on above: Result Comment: Non- Reactive Reactive Repeatedly reactive samples must be confirmed according to CDC recommended confirmatory algorithms. The subresults for either HIVAG or AHIV can be used as an aid in the selection of the confirmation algorithm for reactive samples. Send out specimens with Reactive results to [facility] for confirmation. Order the HIV antibody detection and differentiation: #[id number] Performed By: #### L 503.6005, M200.1000 #### [facility] [address] [facility] [place], [address] L3890.6102on 04-06-2025 HEP B Surf Ag Non-Reactive Normal Nonreactive [facility] Comment on above: Result Comment: Reac tive: Presumptive evidence of HBV. Repeatedly reactive samples must be confirmed using a neutralization test ([employer] HBsAg Confirmatory Test) Non-Reactive: HBsAg not detected; does not exclude the possibility of exposure to HBV Performed By: #### L 503.6005, M200.1000 #### [facility] [address] [place], [place], [address] L509.4006on 04-06-2025 Rubella IgG REAC Normal Nonreactive [facility] Comment on above: Result Comment: Anti body Result: Interpretation Non-Reactive: Non-Immune Reactive: Immune The following results were obtained with the [employer] Rubella IgG assay. Results from assays of other manufacturers cannot be used interchangeably. Performed By: #### L 503.6005, M200.1000 #### [facility] [address] [place], [address] Laboratory - Microbiology an d Antimicrobial susceptibilityOrdered By: Ashleigh Mejia on 04-06-2025 HBV surface Ag Ql (S) Non-Reactive Nonreactive [facility] Comment on above: Reactive: Presumptiv e evidence of HBV. Repeatedly reactive samples must be confirmed using a neutralization test ([employer] HBsAg Confirmatory Test)Non-Reactive: HBsAg not detected; does not exclude the possibility of exposure to HBV M8200.2203on 04-06-2025 M8200.2203 Pending Chlamydia Trachomatis PCR NEGATIVE for Chlamydia trachomatis N. gonorrhoeae PCR Negative for N. gonorrhoeae Normal [facility] Comment on above: Performed By: #### L 503.6005, M200.1000 #### [facility] [address] [place], [place], [id number] No Panel InformationOrdered By: Ashleigh Mejia on 04-06-2025 Addendum Document Comment . [facility] Comment on above: The quantitative ran ge of this assay is 15 IU/mL to 100million IU/mL. HIV (1&2) Antibody Non-Reactive Nonreactive [facility] Comment on above: Non-ReactiveReactive Repeatedly reactive samples must be confirmed according to CDC recommended confirmatory algorithms. The subresults for either HIVAG or AHIV can be used as an aid in the selection of the confirmation algorithm for reactive samples.Send out specimens with Reactive results to [facility] for confirmation.Order the HIV antibody detection and differentiation: #[id number] Serum or plasma hepatitis C virus RNA measurement by probe and target amplification mOrdered By: Ashleigh Mejia on 04-06-2025 HCV RNA MILES+probe Qn Not detected . [facility] Syphilis Antibodieson 2024 Syphilis Abs Non-Reactive Normal Nonreactive [facility] Comment on above: Performed By: #### L 503.6005, M200.1000 #### [facility] [address] [place], [place], [id number] TSH DL <= 0.005 mIU/L QnOrde red By: Ashleigh Mejia on 04-06-2025 TSH Qn 2.290 uIU/mL 0.300-4.200 [facility] Thyroid Stim Hormone (TSH)on 04-06-2025 TSH 2.290 uIU/mL Normal 0.300-4.200 [facility] Comment on above: Performed By: #### L 503.6005, M200.1000 #### [facility] [address] [place], [place], [address] PROGESTERONE 4317on 03-11-20 25 PROGESTERONE 10.1 ng/mL Normal . [facility] Comment on above: Order Comment: N Result Comment: Foll icular phase 0.1 - 0.9 Luteal phase 1.8 - 23.9 Ovulation phase 0.1 - 12.0 First trimester 11.0 - 44.3 Second trimester 25.4 - 83.3 Third trimester 58.7 - 214.0 Postmenopausal 0.0 - 0.1 Performed at: [facility] [id number] Coil Taper: Gonzalo Sevilla PhD, Phone: [phone] Performed By: #### L 500.4050, L100.0100, L700.8162 #### [facility] [address] [place], [address] Quantitative serum progester one measurement by electrochemiluminescence immunoassay (Ordered By: Riya Morgan on 03-10-2025 Progesterone Level 10.1 ng/mL . [facility] Comment on above: Follicular phase 0.1 - 0.9 Luteal phase 1.8 - 23.9 Ovulation phase 0.1 - 12.0 First trimester 11.0 - 44.3 Second trimester 25.4 - 83.3 Third trimester 58.7 - 214.0 Postmenopausal 0.0 - 0.1Performed at: [employer] [id number] [place] [id number] Director: Gonzalo Sevilla PhD, Phone: [phone] PROGESTERONE 4317on 02-15-20 PROGESTERONE 13.5 ng/mL Normal . [facility] [facility] Comment on above: Order Comment: N21 d ay progesterone Result Comment: Foll icular phase 0.1 - 0.9 Luteal phase 1.8 - 23.9 Ovulation phase 0.1 - 12.0 First trimester 11.0 - 44.3 Second trimester 25.4 - 83.3 Third trimester 58.7 - 214.0 Postmenopausal 0.0 - 0.1 Performed at: [employer] [place] [address] [place], [place] [id number] Coil Taper: Gonzalo Sevilla PhD, Phone: [phone] Performed By: #### L 500.4050, L100.0100, L700.5216 #### [facility] [address] [place], [address] Quantitative serum progester one measurement by electrochemiluminescence immunoassay (Ordered By: Riya Morgan on 02-13-2025 Progesterone Level 13.5 ng/mL . [facility] Comment on above: Follicular phase 0.1 - 0.9 Luteal phase 1.8 - 23.9 Ovulation phase 0.1 - 12.0 First trimester 11.0 - 44.3 Second trimester 25.4 - 83.3 Third trimester 58.7 - 214.0 Postmenopausal 0.0 - 0.1Performed at: [facility] [employer] [id number] Director: Gonzalo Sevilla PhD, Phone: [phone] PROGESTERONE 4317on 01-19-20 PROGESTERONE 12.4 ng/mL Normal . [facility] Comment on above: Order Comment: N 21 day progesterone Result Comment: Foll icular phase 0.1 - 0.9 Luteal phase 1.8 - 23.9 Ovulation phase 0.1 - 12.0 First trimester 11.0 - 44.3 Second trimester 25.4 - 83.3 Third trimester 58.7 - 214.0 Postmenopausal 0.0 - 0.1 Performed at: [facility] [employer] [id number] Coil Taper: Gonazlo Sevilla PhD, Phone: [phone] Performed By: #### L 801.2600 #### [facility] [address] [place], [place], [id number] Quantitative serum progester one measurement by electrochemiluminescence immunoassay (Ordered By: Riya Morgan on 01-17-2025 Progesterone Level 12.4 ng/mL . [facility] Comment on above: Follicular phase 0.1 - 0.9 Luteal phase 1.8 - 23.9 Ovulation phase 0.1 - 12.0 First trimester 11.0 - 44.3 Second trimester 25.4 - 83.3 Third trimester 58.7 - 214.0 Postmenopausal 0.0 - 0.1Performed at: [address] [id number] Director: Gonzalo Sevilla PhD, Phone: [phone] COVID 19 AG RAPID (CAROL Valerio)on 01-16-2025 SARS-CoV-2 (COVID-19) RNA MILES+probe Ql (Unsp spec) *Negative results from patients with symptom onset beyond five days should be treated as presumptive and confirmed by a molecular assay if clinically necessary. Negative results should not be used as the sole basis for treatment or for patient management. SARS-CoV-2 Ag Resp Ql IA.rapid *Positive results do not differentiate between SARS-CoV and SARS-CoV-2. If differentiation of the specific SARS virus is desired an additional sample and an additional order is required. SARS-CoV-2 Ag Resp Ql IA.rapid * This test has not been FDA cleared or approved; the test has been authorized by FDA under an Emergency Use Authorization (EAU) for use by laboratories certified under CLIA that meet the requirements to perform moderate, high, or waived complexity tests. SARS-CoV-2 Ag Resp Ql IA.rapid Normal Reference Range: Negative SARS-CoV-2 (COVID 19) Negative RAPID METHOD [employer] COVID19 Ag Card Normal [facility] Comment on above: Performed By: #### L 500.4050, L100.0100, L700.6800 #### [facility] [address] [place], [address] COVID-19 virus antigen assay Ordered By: Sukh Santiago on 01-16-2025 SARS-CoV-2 (COVID-19) Ag IA.rapid Ql (Resp) [facility] SARS-CoV-2 (COVID-19) Ag IA. rapid Ql (Resp)Ordered By: Sukh Santiago on 01-16-2025 SARS-CoV-2 Antigen (Rapid) [facility] COVID 19 AG RAPID (RN COLLEC T)on 01-09-2025 SARS-CoV-2 (COVID-19) RNA MILES+probe Ql (Unsp spec) *Negative results from patients with symptom onset beyond five days should be treated as presumptive and confirmed by a molecular assay if clinically necessary. Negative results should not be used as the sole basis for treatment or for patient management. SARS-CoV-2 Ag Resp Ql IA.rapid *Positive results do not differentiate between SARS-CoV and SARS-CoV-2. If differentiation of the specific SARS virus is desired an additional sample and an additional order is required. SARS-CoV-2 Ag Resp Ql IA.rapid * This test has not been FDA cleared or approved; the test has been authorized by FDA under an Emergency Use Authorization (EAU) for use by laboratories certified under CLIA that meet the requirements to perform moderate, high, or waived complexity tests. SARS-CoV-2 Ag Resp Ql IA.rapid Normal Reference Range: Negative SARS-CoV-2 (COVID 19) Negative RAPID METHOD [employer] COVID19 Ag Card Normal [facility] Comment on above: Performed By: #### L 500.4050, L100.0100, L700.6800 #### [facility] [address] [place], [place], [address] COVID-19 virus antigen assay Ordered By: Sukh Jack on 01-09-2025 SARS-CoV-2 (COVID-19) Ag IA.rapid Ql (Resp) [facility] SARS-CoV-2 (COVID-19) Ag IA. rapid Ql (Resp)Ordered By: Sukh Jack on 01-09-2025 SARS-CoV-2 Antigen (Rapid) [facility] Pelvic w/ Transvaginalon Pelvic w/ Transvaginal [facility] [address] [place], [place] [id number] Pelvic w/ Transvaginal MR#: [id number] Acct: [id number] Name: MECCA FRANKLIN Rep #: [id number] : 1995 F 28 From: Prosper Weinstein MD PCP: Dr. 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 anovulation LMP: 11/08/2024 TECHNIQUE: Transabdominal and Transvaginal TECHNICAL QUALITY: Adequate. COMPARISON: None. FINDINGS: The uterus is retroverted and is in a midline position. The uterus measures 9.1 x 4.4 x 4.5 cm. Normal uterine cervix. The endometrium measures 13 mm in thickness, and is hyperechoic. There is no demonstrated endometrial mass. There is no demonstrated myometrial mass. I.U.D. - The patient does not have an I.U.D. The right ovary is visualized. The right ovary measures 3.6 x 2.5 x 2.1 cm. There is no right ovarian cyst or ovarian mass. There is no visualized right adnexal mass or complex lesion. There is normal arterial and normal venous vascularity. The left ovary is visualized. The left ovary measures 4.9 x 2.2 x 1.6 cm. There is no left ovarian cyst or ovarian mass. There is no visualized left adnexal mass or complex lesion. There is normal arterial and normal venous vascularity. There is no fluid in the cul-de-sac. The pre void volume of the bladder was ml. The post void volume of the bladder was ml. Polycystic ovary disease: No. US/Pelvic w/ Transvaginal IMPRESSION: Normal female pelvis. Electronically Signed: Prosper Weinstein MD at 15:00 EST , CC: SILVIA Morgan; Dr. Dania Whitfield DO Card Assembler: Signed Normal [facility] Thyroid Peroxidase ABon 12-2 0-2023 THYR PEROX AB 10 IU/mL Normal 0-34 [facility] Comment on above: Result Comment: Perf ormed at: CB - [facility] [place] [id number] Coil Taper: Gonzalo Sevilla PhD, Phone: [phone] Performed By: #### L 640.4117, O784.5451, P5104.7125 #### [facility] [address] [place], [address] COVID 19 AG RAPID (RN SAMEER Valerio)on 11-10-2024 SARS-CoV-2 (COVID-19) RNA MILES+probe Ql (Unsp spec) *Negative results from patients with symptom onset beyond five days should be treated as presumptive and confirmed by a molecular assay if clinically necessary. Negative results should not be used as the sole basis for treatment or for patient management. SARS-CoV-2 Ag Resp Ql IA.rapid *Positive results do not differentiate between SARS-CoV and SARS-CoV-2. If differentiation of the specific SARS virus is desired an additional sample and an additional order is required. SARS-CoV-2 Ag Resp Ql IA.rapid * This test has not been FDA cleared or approved; the test has been authorized by FDA under an Emergency Use Authorization (EAU) for use by laboratories certified under CLIA that meet the requirements to perform moderate, high, or waived complexity tests. SARS-CoV-2 Ag Resp Ql IA.rapid Normal Reference Range: Negative SARS-CoV-2 (COVID 19) Negative RAPID METHOD [employer]Now COVID19 Ag Card Normal [facility] Comment on above: Performed By: #### L 500.4050, L100.0100, L700.6800 #### [facility] [address] [facility] [place], [place], [id number] Direct serum free thyroxine (FT4) measurementOrdered By: Riya Morgan on 11-10-2024 Free T4 [Mass/Vol] 1.10 ng/dL 0.76-1.46 [facility] L900.0111on 11-10-2024 REPROSOURCE SEE SCANNED REPORT Normal [facility] Comment on above: Performed By: #### L 506.0400, L900.0111, L3300.6900 #### [facility] [address] [facility] [place], [place], [address] No Panel InformationOrdered By: Riya Morgan on 11-10-2024 Miscellaneous Test Comment SEE SCANNED REPORT [facility] SARS-CoV-2 (COVID-19) Ag IA. rapid Ql (Resp)Ordered By: Sukh Santiago on 11-10-2024 SARS-CoV-2 Antigen (Rapid) [facility] T4 Free Directon 11-10-2024 T4 FREE DIRECT 1.10 ng/dL Normal 0.76-1.46 [facility] Comment on above: Performed By: #### L 506.0400, L900.0111, L3300.6900 #### [facility] [address] [place], [address] TPO Ab QnOrdered By: Riya colbert on 11-10-2024 Thyroid Peroxidase Antibodies 10 IU/mL 0-34 [facility] Comment on above: Performed at: [address] [id number] Director: Gonzalo Sevilla PhD, Phone: [phone] COVID 19 AG RAPID (CAROL Valerio)on 11-03-2024 SARS-CoV-2 (COVID-19) RNA MILES+probe Ql (Unsp spec) *Negative results from patients with symptom onset beyond five days should be treated as presumptive and confirmed by a molecular assay if clinically necessary. Negative results should not be used as the sole basis for treatment or for patient management. SARS-CoV-2 Ag Resp Ql IA.rapid *Positive results do not differentiate between SARS-CoV and SARS-CoV-2. If differentiation of the specific SARS virus is desired an additional sample and an additional order is required. SARS-CoV-2 Ag Resp Ql IA.rapid * This test has not been FDA cleared or approved; the test has been authorized by FDA under an Emergency Use Authorization (EAU) for use by laboratories certified under CLIA that meet the requirements to perform moderate, high, or waived complexity tests. SARS-CoV-2 Ag Resp Ql IA.rapid Normal Reference Range: Negative SARS-CoV-2 (COVID 19) Negative RAPID METHOD BinaxNow COVID19 Ag Card Normal [facility] Comment on above: Performed By: #### L 500.4050, L100.0100, L700.6800 #### [facility] [address] [place], [address] SARS-CoV-2 (COVID-19) Ag IA. rapid Ql (Resp)Ordered By: Sukh Santiago on 11-03-2024 SARS-CoV-2 Antigen (Rapid) [facility] PROGESTERONE 4317on 11-02-20 24 PROGESTERONE 6.9 ng/mL Normal . [facility] Comment on above: Order Comment: Y Result Comment: Foll icular phase 0.1 - 0.9 Luteal phase 1.8 - 23.9 Ovulation phase 0.1 - 12.0 First trimester 11.0 - 44.3 Second trimester 25.4 - 83.3 Third trimester 58.7 - 214.0 Postmenopausal 0.0 - 0.1 Performed at: [facility] [address] [id number] Coil Taper: Gonzalo Sevilla PhD, Phone: [phone] Performed By: #### L 503.6005, M200.1000 #### [facility] [address] [place], [address] Absolute neutrophil countOrd ered By: Riya Morgan on 11-01-2024 Neutrophils (Bld) [#/Vol] 4.7 10*3/uL 2.0-7.7 [facility] Basophil percentageOrdered B y: Riya Morgan on 11-01-2024 Basophils/100 WBC (Bld) 0.6 % 0-1 [facility] [place] CBC W/Diff, Automatedon 10-23 0-2023 Absolute Lymph 1.40 X10 3/uL Normal 0.83-4.51 [facility] Comment on above: Performed By: #### L 503.6005, M200.1000 #### [facility] [address] [facility] [place], [address] Absolute Neut 4.7 X10 3/uL Normal 2.0-7.7 [facility] Comment on above: Performed By: #### L 503.6005, M200.1000 #### [facility] [address] [place], [address] Basophils/100 WBC (Bld) 0.6 % Normal 0-1 [facility] [place] Comment on above: Performed By: #### L 503.6005, M200.1000 #### [facility] [address] [place], [address] Eosinophils/100 WBC (Bld) 2.4 % Normal 0-5 [facility] Comment on above: Performed By: #### L 503.6005, M200.1000 #### [facility] [address] [place], [address] Erythrocyte distribution width (RBC) [Ratio] 15.1 % High 11.6-14.6 [facility] Comment on above: Performed By: #### L 503.6005, M200.1000 #### [facility] [address] [place], [address] Hematocrit (Bld) [Volume fraction] 38.8 % Normal 37-47 [facility] Comment on above: Performed By: #### L 503.6005, M200.1000 #### [facility] [address] [place], [address] Hemoglobin (Bld) [Mass/Vol] 11.5 g/dL Low 12.0-15.0 [facility] Comment on above: Performed By: #### L 503.6005, M200.1000 #### [facility] [address] [place], [address] IG% 0.300 Normal 0.0-0.9 [facility] Comment on above: Result Comment: IG% - Immature Granulocytes (promyelocytes, myelocytes and metamyelocytes) > 1% indicates that a LEFT SHIFT is Present. Performed By: #### L 503.6005, M200.1000 #### [facility] [address] [place], [address] Lymphocytes/100 WBC (Bld) 20.7 % Normal 19-41 [facility] Comment on above: Performed By: #### L 503.6005, M200.1000 #### [facility] [address] [place], [address] MCH (RBC) [Entitic mass] 23.0 pg Low 27.0-32.0 [facility] Comment on above: Performed By: #### L 503.6005, M200.1000 #### [facility] [address] [place], [address] MCHC (RBC) [Mass/Vol] 29.6 g/dL Low 32-36 [facility] Comment on above: Performed By: #### L 503.6005, M200.1000 #### [facility] [address] [place], [address] MCV (RBC) [Entitic vol] 77.8 fL Low 81-99 [facility] [place] Comment on above: Performed By: #### L 503.6005, M200.1000 #### [facility] [address] [place], [address] Monocytes/100 WBC (Bld) 6.4 % Normal 0-10 [facility] Comment on above: Performed By: #### L 503.6005, M200.1000 #### [facility] [address] [place], [address] Neutrophils/100 WBC (Bld) 69.6 % Normal 47-70 [facility] Comment on above: Performed By: #### L 503.6005, M200.1000 #### [facility] [address] [place], [address] Nucleated RBC (Bld) [#/Vol] 0 10*3/uL Normal 0-5 [facility] Comment on above: Performed By: #### L 503.6005, M200.1000 #### [facility] [address] [place], [address] Platelet mean volume (Bld) [Entitic vol] 11.0 fL Normal 6.2-12.0 [facility] Comment on above: Performed By: #### L 503.6005, M200.1000 #### [facility] [address] [place], [address] Platelets (Bld) [#/Vol] 271 10*3/uL Normal 150-450 [facility] Comment on above: Performed By: #### L 503.6005, M200.1000 #### [facility] [address] [place], [address] RBC (Bld) [#/Vol] 4.99 10*6/uL Normal 4.2-5.4 [facility] Comment on above: Performed By: #### L 503.6005, M200.1000 #### [facility] [address] [place], [address] RDW SD 42.7 fl Normal 35.1-43.9 [facility] Comment on above: Performed By: #### L 503.6005, M200.1000 #### [facility] [address] [place], [address] WBC (Bld) [#/Vol] 6.8 10*3/uL Normal 4.4-11.0 [facility] Comment on above: Performed By: #### L 503.6005, M200.1000 #### [facility] [address] [place], [address] Eosinophil percentageOrdered By: Riya Morgan on 11-01-2024 Eosinophils/100 WBC (Bld) 2.4 % 0-5 [facility] Erythrocyte distribution wid th ratioOrdered By: Riya Morgan on 11-01-2024 Erythrocyte distribution width (RBC) [Ratio] 15.1 % High 11.6-14.6 [facility] Erythrocyte distribution wid th standard deviationOrdered By: Riya Morgan on 11-01-2024 Erythrocyte distribution width (RBC) [Entitic vol] 42.7 fL 35.1-43.9 [facility] Hematocrit Auto (Bld) [Volum e fraction]Ordered By: Riya Morgan on 11-01-2024 Hematocrit (Bld) [Volume fraction] 38.8 % 37-47 [facility] Hemoglobin measurementOrdere d By: Riya Morgan on 11-01-2024 Hemoglobin (Bld) [Mass/Vol] 11.5 g/dL Low 12.0-15.0 [facility] Immature granulocytes/100 WB C Auto (Bld)Ordered By: Riya Morgan on 11-01-2024 Immature granulocytes/100 WBC (Bld) 0.300 % 0.0-0.9 [facility] Comment on above: IG% - Immature Granu locytes (promyelocytes, myelocytes and metamyelocytes) > 1% indicates that a LEFT SHIFT is Present. Lymphocytes Auto (Unsp spec) [#/Vol]Ordered By: Riya Morgan on 11-01-2024 Lymphocytes (Bld) [#/Vol] 1.40 10*3/uL 0.83-4.5 1 [facility] Lymphocytes/100 WBC Auto (Un sp spec)Ordered By: Riya Morgan on 11-01-2024 Lymphocytes/100 WBC (Bld) 20.7 % 19-41 [facility] MCV (mean corpuscular volume ) determinationOrdered By: Riya Morgan on 11-01-2024 MCV (RBC) [Entitic vol] 77.8 fL Low 81-99 [facility] Mean corpuscular hemoglobin (MCH) determinationOrdered By: Riya Morgan on 11-01-2024 MCH (RBC) [Entitic mass] 23.0 pg Low 27.0-32.0 [facility] Mean corpuscular hemoglobin concentration (MCHC) determinationOrdered By: Riya Morgan on 11-01-2024 MCHC (RBC) [Mass/Vol] 29.6 g/dL Low 32-36 [facility] Mean platelet volume determi nationOrdered By: Riya Morgan on 11-01-2024 Platelet mean volume (Bld) [Entitic vol] 11.0 fL 6.2-12.0 [facility] Monocyte percentageOrdered B y: Riya Morgan on 11-01-2024 Monocytes/100 WBC (Bld) 6.4 % 0-10 [place] Neutrophil percentageOrdered By: Riya Morgan on 11-01-2024 Neutrophils/100 WBC (Bld) 69.6 % 47-70 [facility] Nucleated red blood cell per centageOrdered By: Riya Morgan on 11-01-2024 Nucleated RBC/100 WBC (Bld) [Ratio] 0 % 0-5 [facility] 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 Status: Signed Intake Vital Signs 04/10/24 11:34 11/01/24 10:15 11/01/24 10:20 Height 5 ft 4 in 5 ft 4 in 5 ft 4 in Weight: 144 lb 6 oz BMI 24.7 BP 130/76 H Intake Visit Reasons: fertility consult Chief Complaint: Fertility consult Mobile Device Developer Required: No Is patient in pain?: No Allergies amoxicillin (From Augmentin) Allergy (Mild, Verified 11/01/24 10:15) Hives clavulanic acid (From Augmentin) Allergy (Mild, Verified 11/01/24 10:15) Hives Medications ???Medication ???Instructions ???Recorded ???Confirmed ???Type ferrous sulfate 325 mg (65 mg 325 mg PO DAILY 10/23/23 11/01/24 History iron) tablet (Feosol) dapsone 6 %-spironolactone 5 applic topical 11/01/24 11/01/24 History %-niacinamide 2 % topical cream metronidazole 0.75 % topical cream 1 applic topical QDAY 11/01/24 11/01/24 History (MetroCream) mv-mn no.97-folic 180 mcg-dha 25 tab PO 11/01/24 11/01/24 History mg-herb no.293 25 mg chewable tablet (Alive Daily Support ) Is last menstrual period known: Yes Last Menstrual Period: 10/12/24 Post menopausal: No Patient : No : No PFSH Medical History Anemia Family History Grandmother Skin cancer Grandfather Skin cancer CVA (cerebral vascular accident) Father CVA (cerebral vascular accident) Hypertension Brother Hypertension Social History adopted: No household members: spouse housing: house current occupational status: employed 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 No contraception >1 year. Menses regular about every 28 days, lasting 5 days. +LH rise several months appropriately. Neither she nor have had past pregnancies. Dysmenorrhea: no Irregular menses: no Menopausal symptoms: no Persistent SERRA or visual changes: no Hirsutism: no Previous contraception used: condoms Duration of regular unprotected intercourse: >1 yr history of pelvic infections in patient or partner: no family history of endometriosis: no tobacco use for patient or her partner: no partner fathered any pregnancies: no partner history of testicular issues, ejaculatory dysfunction, or history of Mumps: no Partner medications/vitamins /supplements: no Partner's employment: [employer] any additional risk factors identified: none Female Reproductive History Last Menstrual Period: 10/12/24 Questions: metorrhagia: No, sexually active: Yes, dyspareunia: No and PCB: No ROS Const Constitutional: Reports system reviewed and no additional complaints, except as documented Eyes Eyes: Reports system reviewed and no additional complaints, except as documented GI GI: Denies abdominal pain or change in bowel habits : Reports as per HPI Exam Const General: cooperative and no acute distress Orientation: oriented x3 HENMT Head: normal to inspection and normocephalic Eyes General: appearance normal, both eyes and all related structures Neck Neck: normal visual inspection Resp Effort Inspection: normal respiratory effort Neuro Cognition: normal cognition Speech: speech normal Psych Appearance: grossly normal Mood: congruent mood Affect: normal affect Speech and Movement: speech and movement normal Attitude: cooperative Judgment: judgment good Coding Level of Care Code Off vis,est,level 3 Diagnoses Infertility, anovulation N97.0 Assessment and Plan Assessment and Plan (1) Infertility, anovulation: Status: Acute Orders: Orders CBC W/Diff, Automated Today N97.0 - Female infertility associated with anovulation, N97.9 - Female infertility, unspecified PROGESTERONE Today N97.9 - Female infertility, unspecified Thyroid Stim Hormone (TSH) Today N97.0 - Female infertility associated with anovulation, N97.9 - Female infertility, unspecified T4 Free Direct Today N97.0 - Female infe (more content not included)... Normal [facility] Platelet countOrdered By: Silviano Morgan on 11-01-2024 Platelets (Bld) [#/Vol] 271 10*3/uL 150-450 [facility] Quantitative serum progester one measurement by electrochemiluminescence immunoassay (Ordered By: Riya Morgan on 11-01-2024 Progesterone Level 6.9 ng/mL . [facility] Comment on above: Follicular phase 0.1 - 0.9 Luteal phase 1.8 - 23.9 Ovulation phase 0.1 - 12.0 First trimester 11.0 - 44.3 Second trimester 25.4 - 83.3 Third trimester 58.7 - 214.0 Postmenopausal 0.0 - 0.1Performed at: CB - [facility] [address] [id number] Director: Gonzalo Sevilla PhD, Phone: [phone] RBC Auto (Bld) [#/Vol]Ordere d By: Riya Morgan on 11-01-2024 RBC (Bld) [#/Vol] 4.99 10*6/uL 4.2-5.4 [facility] TSH QnOrdered By: Riya garcia on 11-01-2024 Thyroid Stimulating Hormone (TSH) 2.390 uIU/mL 0.358-3.740 [facility] Thyroid Stim Hormone (TSH)on 11-01-2024 TSH 2.390 uIU/mL Normal 0.358-3.740 [facility] Comment on above: Performed By: #### L [phone], [id number] #### [facility] [place], [address] White blood cell (WBC) count Ordered By: Riya Morgan on 11-01-2024 WBC (Bld) [#/Vol] 6.8 10*3/uL 4.4-11.0 [facility] COVID-19 virus antigen assay Ordered By: Sukh Santiago on 01-01-2024 SARS-CoV-2 (COVID-19) Ag IA.rapid Ql (Resp) [facility] COVID-19 virus antigen assay Ordered By: Sukh Santiago on 12-23-2023 SARS-CoV-2 (COVID-19) Ag IA.rapid Ql (Resp) [facility] COVID-19 virus antigen assay Ordered By: Sukh Santiago on 11-18-2023 SARS-CoV-2 (COVID-19) Ag IA.rapid Ql (Resp) [facility] Cervical or vagninal specime n microscopic examination by cytology stain (reported asOrdered By: Leisa Hampton on 10-23-2023 Cytology report Cyto stain Doc (Cvx/Vag) Comment . [facility] Comment on above: The Pap smear is a s creening test designed to aid in thedetection of premalignant and malignant conditions of theuterine cervix. It is not a diagnostic procedure andshould not be used as the sole means of detecting cervicalcancer. Both false-positive and false-negative reports dooccur. 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 [facility] Comment on above: Jayant Wells ytotechnologist (ASCP) Laboratory - Miscellaneous t estsOrdered By: Leisa Hampton on 10-23-2023 Service comment (Unsp spec) [Interp] Comment . [facility] Comment on above: This liquid based Th inPrep(R) pap test was screened withthe use of an image guided system. Service comment (Unsp spec) [Interp] . . [facility] No Panel InformationOrdered By: Leisa Hampton on 10-23-2023 Human Papillomavirus Screen Comment . [facility] Comment on above: The HPV DNA reflex jayant alvarez were not met with this specimenresult therefore, no HPV testing was performed.Performed at: [facility] [place], [place] [id number] Director: Geneva Tavarez MD, Phone: [phone] Pathology report final diagnosis Narrative Comment . [facility] Comment on above: NEGATIVE FOR INTRAEP ITHELIAL LESION OR MALIGNANCY. COVID-19 virus antigen assay Ordered By: Sukh Santiago on 10-19-2023 SARS-CoV-2 (COVID-19) Ag IA.rapid Ql (Resp) [facility] COVID-19 virus antigen assay Ordered By: Sukh Santiago on 09-22-2023 SARS-CoV-2 (COVID-19) Ag IA.rapid Ql (Resp) [facility] SARS-CoV-2 (COVID-19) Ag IA.rapid Ql (Resp) [facility] Laboratory - Microbiology an d Antimicrobial susceptibilityon 08-12-2023 SARS-CoV-2 (COVID-19) RNA MILES+probe Ql (Unsp spec) Detected [facility] No Panel Informationon 08-12 Influenza Types A,B Rapid (Clinic) Not detected [facility] COVID-19 virus antigen assay Ordered By: Dr. Santiago on 12-06-2022 SARS-CoV-2 (COVID-19) Ag IA.rapid Ql (Resp) [facility] COVID-19 virus antigen assay Ordered By: Dr. Gallagher on 12-02-2022 SARS-CoV-2 (COVID-19) Ag IA.rapid Ql (Resp) [facility] Office Visit (Internal Medic ine)on 09-22-2022 Follow-up visit Diagnoses/Problems Assessed Tick bite (919.4,E906.4) (W57.XXXA) Patient Discussion/Summary Tick bite: Tick was successfully removed intact and remaining reaction is unremarkable at this point. Signs and symptoms of erythema migrans reviewed. Patient advised to contact office should this present. Follow-up as needed Chief Complaint Patient here to be seen for a tick bite in the right upper thigh area x Thursday, with redness and irritation. Patient states she was walking around in a friends property and later that day noticed the tick. History of Present IllnessPatient presents for evaluation of tick bite. Patient successfully removed a tick in tact 3 days ago and reports persistent small, erythematous, blanchable lesion in the area. No constitutional signs or symptoms. No body aches, fevers, or chills. Review of Systems Constitutional: as noted in HPI. Musculoskeletal: as noted in HPI. Skin: as noted in HPI. Active Problems Problems Acne (706.1) (L70.9) Body mass index (BMI) of 23.0 to 23.9 in adult (V85.1) (Z68.23) Burning sensation of mouth (528.9) (R20.8) Encounter to establish care with new doctor (V65.8) (Z76.89) Hair loss (704.00) (L65.9) Iron deficiency anemia (280.9) (D50.9) Microcytic anemia (280.9) (D50.9) Screening for thyroid disorder (V77.0) (Z13.29) Strep tonsillitis (034.0) (J03.00) Suspected COVID-19 virus infection (V01.79) (Z20.822) Past Medical History Problems No pertinent past medical history (V49.89) (Z78.9) Surgical History Problems No history of surgery Family History Mother Family history of Healthy adult Family history of Healthy child Father Family history of Healthy adult Family history of Healthy child Brother Family history of Healthy child Other No pertinent family history Social History Problems Consumes alcohol weekly (V49.89) (Z78.9) Daily caffeine consumption, 2-3 servings a day Does not use tobacco (V49.89) (Z78.9) No illicit drug use Allergies Medication No Known Drug Allergies Recorded By: Andra Cano; 11/09/2020 11:00:14 AM Current Meds Medication NameInstruction Aldactone 100 MG Oral TabletTAKE 1 TABLET DAILY. R90-Jrycap 1 MG Oral Tablet Chewable Ferrous Sulfate 324 MG Oral Tablet Delayed ReleaseTAKE 1 TAB BY MOUTH BID Vitals Vital Signs Recorded: 22Sep2022 02:34PM Mpfrrkxpflq40.2 F Heart Rate92 Qpzavlmh468 Cqcxatikr65 Height5 ft Ejlnei301 lb 3.2 oz BMI Rrshirxntl40.55 kg/m2 BSA Calculated1.63 Tobacco Useb) No PHQ-2 #1. Over the last 2 weeks have you felt down, depressed or hopeless? (If yes, answer PHQ-9 below)No Falls Screening (Age 18+)a) No falls within the last year O2 Zlpeppsrvh14, RA Physical Exam Constitutional General appearance: Alert and in no acute distress. Eyes Inspection of eyes: Sclera and conjunctiva were normal. Ears, Nose, Mouth, and Throat Ears: Auricles: Normal. Pulmonary Respiratory assessment: No respiratory distress, normal respiratory rhythm and effort. Musculoskeletal Examination of gait: Normal. Skin Proximal aspect of right anterior thigh with a small, erythematous, blanchable, insect bite measuring approximately 2 cm in diameter; no embedded fragments of the insect; no erythema migrans. Neurologic Cranial nerves: Nerves 2-12 were intact, no focal neuro defects. Psychiatric Orientation: Oriented to person, place, and time. Signatures Electronically signed by : López Dunne PA-C; Sep 22 2022 2:58PM EST (Author) Normal [employer] Tobacco Screening.on Adult depression screening assessment No [facility] Work Phone: Fall risk assessment a) No falls within the last year [facility] Work Phone: Tobacco use status [facility] b) No [facility] Work Phone: Clinic Note - Intakeon 08-01 Clinic Note - Intake Patient Visit Information: Visit TypeFollow Up Visit, iron Source of Informationpatient Admission Information: Admission Since Last VisitNo Vital Signs: Temp (degrees C)36.8 degrees C Temperatureskin Heart Rate (beats/min)73 beats per minute Respiration (breaths/min)16 breath per minute BP Systolic (mm Hg)109 mmHg BP Diastolic (mm Hg)74 mmHg BP Mean (mm Hg)85 mmHg Height in cm164.4 centimeter(s) Weight in kg63.9 kilogram(s) Weightstanding BMI (kg/m2)23.6 kg/M2 BSA (m2)1.7 M2 SpO2 (%)99 % SpO2 Patient Onroom air Pain Screening: Patient States Painno (0) Allergies: Augmentin: Drug, Rash, Active Outpatient Medication Profile: * Patient Currently Takes Medications as of 18-Jul-2022 09:03 documented in Structured Notes spironolactone 100 mg oral tablet: 1 tab(s) orally once a day iron: Notification: NotificationsAll annual screens currently due. Travel History: COVID-19 Screening Completedno exposure or symptoms Travel or ExposureNO travel to International locations in the past 30 days Falls: Have you fallen in the last 6 monthsno Do you have a fear of fallingno Do you feel you need assistanceno Is the patient using an assistive deviceno Not a falls riskimplement environmental risk factors interventions Electronic Signatures: Adriane Horne II) (Signed 01-Aug-2022 09:06) Authored: Patient Visit Information, Vital Signs, Allergies, Outpatient Medication Profile, Notification, Travel History, Falls Last Updated: 01-Aug-2022 09:06 by Adriane Horne II) [facility] Note - Intakeon 07-29 Clinic Note - Intake Patient Visit Information: Visit TypeFollow Up Visit, iron Source of Informationpatient Admission Information: Admission Since Last VisitNo Vital Signs: Temp (degrees C)36.4 degrees C Temperatureskin Heart Rate (beats/min)70 beats per minute Respiration (breaths/min)16 breath per minute BP Systolic (mm Hg)122 mmHg BP Diastolic (mm Hg)82 mmHg BP Mean (mm Hg)95 mmHg Height in cm164.4 centimeter(s) SpO2 (%)100 % SpO2 Patient Onroom air Pain Screening: Patient States Painno (0) Allergies: Augmentin: Drug, Rash, Active Outpatient Medication Profile: * Patient Currently Takes Medications as of 18-Jul-2022 09:03 documented in Structured Notes spironolactone 100 mg oral tablet: 1 tab(s) orally once a day iron: Notification: NotificationsAll annual screens currently due. Travel History: COVID-19 Screening Completedno exposure or symptoms Travel or ExposureNO travel to International locations in the past 30 days Falls: Have you fallen in the last 6 monthsno Do you have a fear of fallingno Do you feel you need assistanceno Is the patient using an assistive deviceno Not a falls riskimplement environmental risk factors interventions Electronic Signatures: Adriane Horne (AL FERNANDES) (Signed 29-Jul-2022 14:30) Authored: Patient Visit Information, Vital Signs, Allergies, Outpatient Medication Profile, Notification, Travel History, Falls Last Updated: 29-Jul-2022 14:30 by Adriane Horne II) [facility] Note - Intakeon 07-25 Clinic Note - Intake Patient Visit Information: Visit TypeFollow Up Visit, iron Source of Informationpatient Admission Information: Admission Since Last VisitNo Vital Signs: Temp (degrees C)35.6 degrees C Temperatureskin Heart Rate (beats/min)73 beats per minute Respiration (breaths/min)16 breath per minute BP Systolic (mm Hg)124 mmHg BP Diastolic (mm Hg)76 mmHg BP Mean (mm Hg)92 mmHg Height in cm164.4 centimeter(s) Weight in kg64.9 kilogram(s) Weightstanding BMI (kg/m2)24 kg/M2 BSA (m2)1.72 M2 SpO2 (%)99 % SpO2 Patient Onroom air Pain Screening: Patient States Painno (0) Allergies: Augmentin: Drug, Rash, Active Outpatient Medication Profile: * Patient Currently Takes Medications as of 18-Jul-2022 09:03 documented in Structured Notes spironolactone 100 mg oral tablet: 1 tab(s) orally once a day iron: Notification: NotificationsAll annual screens currently due. Travel History: COVID-19 Screening Completedno exposure or symptoms Travel or ExposureNO travel to International locations in the past 30 days Falls: Have you fallen in the last 6 monthsno Do you have a fear of fallingno Do you feel you need assistanceno Is the patient using an assistive deviceno Not a falls riskimplement environmental risk factors interventions Electronic Signatures: Adriane Horne (AL FERNANDES) (Signed 25-Jul-2022 09:02) Authored: Patient Visit Information, Vital Signs, Allergies, Outpatient Medication Profile, Notification, Travel History, Falls Last Updated: 25-Jul-2022 09:02 by Adriane Horne II) [facility] Note - Intakeon 07-23 Clinic Note - Intake Patient Visit Information: Visit TypeFollow Up Visit, iron Source of Informationpatient Admission Information: Admission Since Last VisitNo Vital Signs: Temp (degrees C)36.5 degrees C Temperatureskin Heart Rate (beats/min)73 beats per minute Respiration (breaths/min)16 breath per minute BP Systolic (mm Hg)123 mmHg BP Diastolic (mm Hg)81 mmHg BP Mean (mm Hg)95 mmHg Height in cm164.4 centimeter(s) SpO2 (%)99 % SpO2 Patient Onroom air Pain Screening: Patient States Painno (0) Allergies: Augmentin: Drug, Rash, Active Outpatient Medication Profile: * Patient Currently Takes Medications as of 18-Jul-2022 09:03 documented in Structured Notes spironolactone 100 mg oral tablet: 1 tab(s) orally once a day iron: Notification: NotificationsAll annual screens currently due. Travel History: COVID-19 Screening Completedno exposure or symptoms Travel or ExposureNO travel to International locations in the past 30 days Falls: Have you fallen in the last 6 monthsno Do you have a fear of fallingno Do you feel you need assistanceno Is the patient using an assistive deviceno Not a falls riskimplement environmental risk factors interventions Electronic Signatures: Adriane Horne (AL FERNANDES) (Signed 23-Jul-2022 14:50) Authored: Patient Visit Information, Vital Signs, Allergies, Outpatient Medication Profile, Notification, Travel History, Falls Last Updated: 23-Jul-2022 14:50 by Adriane Horne (AL FERNANDES) [facility] Note - Intakeon 07-18 Clinic Note - Intake Patient Visit Information: Visit TypeNew Visit, iron Source of Informationpatient Vital Signs: Temp (degrees C)36.4 degrees C Temperatureskin Heart Rate (beats/min)101 beats per minute Respiration (breaths/min)16 breath per minute BP Systolic (mm Hg)128 mmHg BP Diastolic (mm Hg)83 mmHg BP Mean (mm Hg)98 mmHg Height in cm164.4 centimeter(s) Heightstanding Weight in kg65.7 kilogram(s) Weightstanding BMI (kg/m2)24.3 kg/M2 BSA (m2)1.73 M2 SpO2 (%)100 % SpO2 Patient Onroom air Pain Screening: Patient States Painno (0) Allergies: Augmentin: Drug, Rash, Active Outpatient Medication Profile: * Patient Currently Takes Medications as of 18-Jul-2022 09:03 documented in Structured Notes spironolactone 100 mg oral tablet: Last Dose Taken: , 1 tab(s) orally once a day iron: Last Dose Taken: Notification: NotificationsAll annual screens currently due. Travel History: COVID-19 Screening Completedno exposure or symptoms Travel or ExposureNO travel to International locations in the past 30 days Falls: Have you fallen in the last 6 monthsno Do you have a fear of fallingno Do you feel you need assistanceno Is the patient using an assistive deviceno Not a falls riskimplement environmental risk factors interventions Electronic Signatures: Shantal Love (ROMULO) (Signed 22-Jul-2022 07:35) Co-Signer: Vital Signs Adriane Horne (MA II) (Signed 18-Jul-2022 09:06) Authored: Patient Visit Information, Vital Signs, Allergies, Outpatient Medication Profile, Notification, Travel History, Falls Last Updated: 22-Jul-2022 07:35 by Shantal Love (ROMULO) Normal [facility] Office Visit (Internal Medic ine)on 05-15-2022 Follow-up visit Diagnoses/Problems Assessed Iron deficiency anemia (280.9) (D50.9) Body mass index (BMI) of 23.0 to 23.9 in adult (V85.1) (Z68.23) Provider Impressions 1. Iron def anemia - reviewed bloodwork, iron on low end of normal at 36 - she does have heavy periods - recommend continuing iron, has no other symptoms like lightheadedness, severe fatigue, palpitations or sob, advised if she does please let me know and can consider infusions 2. Rest of bloodwork WNL Chief Complaint 26 y/o female presents for 1 year and to go over labs Adult Risk Screening Initial Fall Risk Screening: MECCA has not fallen in the last 6 months. Tobacco Screening: MECCA does not use tobacco. History of Present Illness Patient is here today for 1 year follow up and go over labs. Patient reports that she did feel better since taking the iron. Reviewed her labs, her iron is on the lower end of normal. Discussed continuing the iron. She did have rash after taking penicillin recently, she has not really had antibiotics in the past, no itchy or any trouble breathing and it was a week after she finished it, so perhaps was drug rash vs unrelated. Review of Systems Constitutional: no fever, no chills and not feeling poorly. ENT: no nasal discharge and no sore throat. Cardiovascular: no chest pain and no palpitations. Active Problems Problems Acne (706.1) (L70.9) Burning sensation of mouth (528.9) (R20.8) Encounter to establish care with new doctor (V65.8) (Z76.89) Hair loss (704.00) (L65.9) Microcytic anemia (280.9) (D50.9) Screening for thyroid disorder (V77.0) (Z13.29) Strep tonsillitis (034.0) (J03.00) Suspected COVID-19 virus infection (V01.79) (Z20.822) Past Medical History Problems No pertinent past medical history (V49.89) (Z78.9) Surgical History Problems No history of surgery Family History Mother Family history of Healthy adult Family history of Healthy child Father Family history of Healthy adult Family history of Healthy child Brother Family history of Healthy child Other No pertinent family history Social History Problems Consumes alcohol weekly (V49.89) (Z78.9) Daily caffeine consumption, 2-3 servings a day Does not use tobacco (V49.89) (Z78.9) No illicit drug use Allergies Medication No Known Drug Allergies Recorded By: Andra Cano; 11/09/2020 11:00:14 AM Current Meds Medication NameInstruction Aldactone 100 MG Oral TabletTAKE 1 TABLET DAILY. V77-Czhvxz 1 MG Oral Tablet Chewable Ferrous Sulfate 324 MG Oral Tablet Delayed ReleaseTAKE 1 TAB BY MOUTH BID Vitals Vital Signs Recorded: 15May2022 04:02PM Heart Rate85 Qedptkvw686 Ahzrspoql75 Blood Pressure Cuff SizeAdult Height5 ft 4 in Mtekgj822 lb BMI Mskkwyibas47.52 kg/m2 BSA Calculated1.67 Tobacco Useb) No Falls Screening (Age 18+)a) No falls within the last year Physical Exam Constitutional General appearance: Alert and in no acute distress. Eyes Inspection of eyes: Sclera and conjunctiva were normal. Pupil exam: Pupils were equal in size. Extraocular movements were intact. Pulmonary Respiratory assessment: No respiratory distress, normal respiratory rhythm and effort. Auscultation of Lungs: Clear bilateral breath sounds. Cardiovascular Auscultation of heart: Apical pulse normal, heart rate and rhythm normal, normal S1 and S2, no murmurs and no pericardial rub. Exam for edema: No peripheral edema. Abdomen Liver and Spleen exam: No hepato-splenomegaly. Musculoskeletal Inspection/palpation of joints, bones and muscles: No joint swelling. Normal movement of all extremities. Skin Skin inspection: Normal skin color and pigmentation, normal skin turgor and no visible rash. Psychiatric Orientation: Oriented to person, place, and time. Mood and affect: Normal. Signatures Electronically signed by : Dania Whitfield DO; May 15 2022 5:59PM EST (Author) Normal [facility] Vital Signs Date Time Vital Sign Value Performing Clinician Faci lity 09-13-2025 15:18-0400 Body height 162.[address] Dania Whitfield DO Work Phone: [facility] 09-13-2025 15:16-0400 Body mass index (BMI) [Ratio] 23.7 kg/m2 Dr. Dania Whitfield DO Work Phone: [facility] 09-13-2025 15:16-0400 Body weight 62.[address] Dania Whitfield DO Work Phone: [facility] 09-13-2025 15:16-0400 Diastolic blood pressure 75 mm[Hg] Dr. Dania Whitfield DO Work Phone: [facility] 09-13-2025 15:16-0400 Systolic blood pressure 118 mm[Hg] Dr. Dania Whitfield DO Work Phone: [facility] 09-02-2025 12:36-0400 Body temperature 98.6 [degF] Dr. Dania Whitfield DO Work Phone: [facility] 09-02-2025 12:36-0400 Diastolic blood pressure 71 mm[Hg] Dr. Dania Whitfield DO Work Phone: [facility] 09-02-2025 12:36-0400 Heart rate 100 /min Dr. Dania Whitfield DO Work Phone: [facility] 09-02-2025 12:36-0400 Respiratory rate 16 /min Dr. Dania Whitfield DO Work Phone: [facility] 09-02-2025 12:36-0400 SaO2% (BldA) [Mass fraction] 96 % Dr. Dania Whitfield DO Work Phone: [facility] 09-02-2025 12:36-0400 Systolic blood pressure 116 mm[Hg] Dr. Dania Whitfield DO Work Phone: [facility] 09-02-2025 07:46-0400 Inhaled oxygen flow rate 2 L/min Dr. Dania Whitfield DO Work Phone: [facility] 09-02-2025 05:30-0400 Body mass index (BMI) [Ratio] 24.7 kg/m2 Dr. Dania Whitfield DO Work Phone: [facility] 09-02-2025 05:30-0400 Body weight 65.[address] Dania Whitfield DO Work Phone: [facility] 11-01-2024 10:20-0500 Body height 162.56 cm Riya Morgan [employer]MP SERVICER HELPER-C Work Phone: [facility] 11-01-2024 10:15-0500 Body mass index (BMI) [Ratio] 24.7 kg/m2 Riya Morgan PUMP SERVICER HELPER-C Work Phone: [facility] 11-01-2024 10:15-0500 Body weight 65.48 kg Riya Singhs PUMP SERVICER HELPER-C Work Phone: [facility] 11-01-2024 10:15-0500 Diastolic blood pressure 76 mm[Hg] Riya Morgan PUMP SERVICER HELPER-C Work Phone: [facility] 11-01-2024 10:15-0500 Systolic blood pressure 130 mm[Hg] Riya Morgan PUMP SERVICER HELPER-C Work Phone: [facility] 10-23-2023 09:01-0500 Body height 162.56 cm JOSETTE Zamorano PA Work Phone: [facility] 10-23-2023 09:01-0500 Body mass index (BMI) [Ratio] 24.7 kg/m2 JOSETTE Zamorano PA Work Phone: [facility] 10-23-2023 09:01-0500 Body weight 65.43 kg JOSETTE Zamorano PA Work Phone: [facility] 09-22-2022 14:34-0400 Body height 152.4 cm Dania L Oberhauser Work Phone: [facility] Work Phone: 09-22-2022 14:34-0400 Body mass index (BMI) [Ratio] 28.55 kg/m2 Dania L Oberhauser Work Phone: [facility] Work Phone: 09-22-2022 14:34-0400 Body surface area Derived from formula 1.63 m2 Dania L Oberhauser Work Phone: [facility] Work Phone: 09-22-2022 14:34-0400 Body temperature 98.2 [degF] Dania L Oberhauser Work Phone: [facility] Work Phone: 09-22-2022 14:34-0400 Body weight 66.32 kg Dania L Oberhauser Work Phone: [facility] Work Phone: 09-22-2022 14:34-0400 Diastolic blood pressure 73 mm[Hg] Dania L Oberhauser Work Phone: [facility] Work Phone: 09-22-2022 14:34-0400 Heart rate 92 /min Dania L Oberhauser Work Phone: [facility] Work Phone: 09-22-2022 14:34-0400 SaO2% (BldA) [Mass fraction] 98 % Dania L Oberhauser Work Phone: [facility] Work Phone: 09-22-2022 14:34-0400 Systolic blood pressure 132 mm[Hg] Dania L Oberhauser Work Phone: [facility] Work Phone: Encounters Encounter Date Encounter Type Care Provider Facility Start: 10-05-2025 ambulatory Dania Whitfield Facili ty:[facility] Start: 10-03-2025 ambulatory Dania Obbrittany Facili ty:[facility] Start: 09-19-2025 End: 09-19-2025 ambulatory Dania Oberhauser Facility:[facility] Start: 09-13-2025 End: 09-13-2025 ambulatory Dania Oberhauser [place] Start: 09-11-2025 End: 09-22-2025 ambulatory Sukh PA Facility:[facility] Start: 09-02-2025 Non-patient / Non-visit Dr. Kurt Bush DO -[facility] Start: 09-02-2025 End: 09-02-2025 Admission to same day surgery center Dr. Luz Elena Bush DO -[facility] Start: 09-02-2025 End: 09-02-[address] Dania Whitfield DO Work Phone: -[facility] Start: 08-14-2025 Registered Referred [facility] -Laboratory Work Phone: Start: 08-14-2025 ambulatory Health Risk Assessment Facility:[facility] Start: 04-12-2025 Encounter for genera l adult medical examination without abnormal findings Ashleighomaira Mendenhallmeclay [facility] Start: 04-06-2025 End: 04-06-[address] Dania Whitfield DO Work Phone: [facility] Work Phone: Start: 04-06-2025 End: 04-06-[address] Ashleigh Mejia MD -Laboratory Work Phone: Start: 04-06-2025 End: 04-06-2025 ambulatory Ashleigh Mejia Facility:[facility] Start: 03-10-2025 End: 03-10-2025 ambulatory Riya Morgan NP-C Work Phone: [facility] Work Phone: Start: 03-10-2025 End: 03-10-2025 Patient encounter procedure Riya Morgan PUMP SERVICER HELPER-C -Lab, [facility] Start: 03-10-2025 End: 03-10-2025 ambulatory Riyasandi Morgan PUMP SERVICER HELPER Facility:[facility] Start: 02-13-2025 End: 02-13-2025 ambulatory Riyasandi Morgan PUMP SERVICER HELPER-C Work Phone: [facility] Work Phone: Start: 02-13-2025 End: 02-13-2025 Patient encounter procedure Riyasandi Morgan PUMP SERVICER HELPER-C -Lab, [facility] Start: 02-13-2025 End: 02-13-2025 ambulatory Riya Eddie PUMP SERVICER HELPER Facility:[facility] Start: 01-31-2025 ambulatory Dania Whitfield Facili ty:[facility] Start: 01-17-2025 End: 01-17-2025 ambulatory Riyasandi Morgan PUMP SERVICER HELPER-C Work Phone: [facility] Work Phone: Start: 01-17-2025 End: 01-17-2025 Patient encounter procedure Riyasandi Morgan PUMP SERVICER HELPER-C -Lab, [facility] Start: 01-16-2025 End: 01-20-2025 Discharged Recurring Sukh Santiago MD -Employee Health Start: 01-16-2025 End: 01-20-2025 ambulatory Sukh Chi Jack OLS Facility:[facility] Start: 01-09-2025 End: 01-20-2025 Discharged Recurring Sukh Santiago MD -Employee Health Start: 01-09-2025 End: 01-20-2025 ambulatory Sukh Chi Jack OLS Facility:[facility] Start: 12-03-2024 ambulatory Sukh Chi Jack Facility:[facility] Start: 11-17-2024 End: 11-17-2024 Patient encounter procedure Riyasandi Morgan PUMP SERVICER HELPER-C -Ultrasound, [facility] Work Phone: Start: 11-17-2024 End: 11-17-2024 ambulatory Dania Oberhauser Facility:[facility] Start: 11-10-2024 End: 11-10-2024 Patient encounter procedure Riya Morgan PUMP SERVICER HELPER-C -Lab, [facility] Start: 11-10-2024 End: 11-22-2024 ambulatory Sukh Santiago Facility:[facility] Start: 11-10-2024 End: 11-22-[address] Sukh Santiago [place] -Employee [facility] Start: 11-10-2024 End: 11-10-2024 ambulatory Dania Annmariepedrito Facility:[facility] Start: 11-01-2024 End: 11-01-2024 Patient encounter procedure Riya Morgan PUMP SERVICER HELPER-C -[facility] Work Phone: Start: 11-01-2024 End: 11-01-2024 ambulatory Riya Morgan PUMP SERVICER HELPER [place] Start: 11-01-2024 End: 11-01-2024 ambulatory Riya Morgan NP Facility:[facility] Start: 01-01-2024 End: 01-21-2024 ambulatory CNM Leisa Hampton Work Phone: [facility] Work Phone: Start: 01-01-2024 End: 01-21-2024 Discharged Recurring CNM [facility]isa Hampton [facility] Start: 12-23-2023 End: 12-23-2023 Discharged Recurring CNM Leisa Hampton [facility] Start: 12-07-2023 End: 12-23-2023 ambulatory CNM Leisa Hampton Work Phone: [facility] Work Phone: Start: 12-07-2023 End: 12-23-2023 Discharged Recurring CNM Leisa Hampton [facility] Start: 11-18-2023 End: 11-22-2023 ambulatory JOSETTE FINCH Work Phone: [facility] Work Phone: Start: 11-18-2023 End: 11-22-2023 Discharged Recurring PA Ravinder Zamorano [facility] Start: 10-23-2023 End: 10-23-2023 ambulatory PA Ravindersandi Zamorano PA Work Phone: [facility] Work Phone: Start: 10-23-2023 End: 10-23-2023 Patient encounter procedure PA Ravinder Zamorano PA [facility] Work Phone: Start: 10-23-2023 End: 10-23-2023 Patient encounter procedure PA Ravinder Zamorano PA Work Phone: [facility] Work Phone: Start: 10-19-2023 End: 10-22-2023 ambulatory PA Ravindersandi Zamorano PA Work Phone: [facility] Work Phone: Start: 10-19-2023 End: 10-22-2023 Discharged Recurring PA Ravinder Zamorano PA [facility] Start: 09-22-2023 End: 09-22-2023 ambulatory PA Ravindersandi Zamorano PA Work Phone: [facility] Work Phone: Start: 09-22-2023 End: 09-22-2023 Discharged Recurring PA Ravindersandi Zamorano PA [facility] Start: 08-12-2023 End: 08-12-2023 Patient encounter procedure PA [facility]indersandi [facility]orano [facility] Work Phone: Start: 12-03-2022 End: 12-23-2022 ambulatory [facility] Work Phone: Start: 12-03-2022 End: 12-23-2022 [facility]charged [facility]ring [facility] Start: 12-02-2022 End: 12-23-2022 ambulatory [facility] Work Phone: Start: 12-02-2022 End: 12-23-2022 Discharged Recurring [facility] Start: 12-02-2022 Registered Recurring [facility] Start: 09-22-2022 Office outpatient vi sit 10 minutes Dania Whitfield Work Phone: [facility] Work Phone: Start: 09-22-2022 ambulatory Mr. López turcios [id number] Start: 08-20-2022 End: 08-22-2022 ambulatory [facility] Work Phone: Start: 08-20-2022 End: 08-22-2022 Discharged Recurring [facility] Start: 07-09-2022 End: 07-23-2022 ambulatory [facility] Work Phone: Start: 07-09-2022 End: 07-23-2022 Discharged Recurring [facility] Start: 05-15-[address] Dania Whitfield Fa cility:[id number] Procedures Date Procedure Procedure Detail Performing Clinician Start: 09-01-2025 Urnls dip stick/tabl et reagent auto microscopy Dr. Dania Whitfield DO Work Phone: Start: 09-01-[address] Dania Whitfield DO Work Phone: Start: 09-01-2025 Transvaginal obstetr ic ultrasonography Dr. Dania Whitfield DO Work Phone: Start: 09-01-[address] Dania Whitfield DO Work Phone: Start: 09-01-[address] Dania Whitfield DO Work Phone: Start: 08-14-2025 Serum inorganic phos phate measurement Dr. Dania Whitfield DO Work Phone: Start: 08-14-2025 Urnls dip stick/tabl et reagent auto microscopy Dr. Dania Whitfield DO Work Phone: Start: 04-06-2025 End: 04-06-2025 Polymerase chain reaction analysis Dr. Dania Whitfield DO Work Phone: Start: 04-06-2025 Iadna hepatitis c qu ant & reverse information technology coordinator Dr. Dania Whitfield DO Work Phone: Comment on above: Test not performed Start: 04-06-[address] Dania Whitfield DO Work Phone: Comment on above: Antibody Result: Int erpretationNon-Reactive: Non- ImmuneReactive: ImmuneThe following results were obtained with the [employer] Rubella IgG assay. Results from assays of other manufacturers cannot be used interchangeably. Start: 04-06-2025 Serologic test for syphilis Dr. Dania Whitfield DO Work Phone: Start: 04-06-2025 Varicella-zoster vir us antibody IgG measurement Dr. Dania Whitfield DO Work Phone: Comment on above: Please note refere [facility] interval changeA Reactive result is considered evidence of immunity toVZV. Reactive indicates that VZV IgG was detectedconsistent with previous infection and/or vaccination.A Non Reactive result indicates that VZV IgG was notdetected suggesting that immunity has not been acquired.Performed at: [employer] [address] [id number] Director: Anibal Romano MD, Phone: [phone] at: [employer] [address] [id number] Director: Gonzalo Sevilla PhD, Phone: [phone] Start: 03-10-[address] Dania Whitfield DO Work Phone: Comment on above: Follicular phase 0.1 - 0.9 Luteal phase 1.8 - 23.9 Ovulation phase 0.1 - 12.0 First trimester 11.0 - 44.3 Second trimester 25.4 - 83.3 Third trimester 58.7 - 214.0 Postmenopausal 0.0 - 0.1Performed at: [facility] [id number] [place], [place] [id number] Director: Gonzalo Sevilla PhD, Phone: [phone] Start: 02-13-[address] Dania Whitfield DO Work Phone: Comment on above: Follicular phase 0.1 - 0.9 Luteal phase 1.8 - 23.9 Ovulation phase 0.1 - 12.0 First trimester 11.0 - 44.3 Second trimester 25.4 - 83.3 Third trimester 58.7 - 214.0 Postmenopausal 0.0 - 0.1Performed at: [facility] [employer] [id number] Director: Gonzalo Sevilla PhD, Phone: [phone] Start: 01-17-[address] Dania Whitfield DO Work Phone: Comment on above: Follicular phase 0.1 - 0.9 Luteal phase 1.8 - 23.9 Ovulation phase 0.1 - 12.0 First trimester 11.0 - 44.3 Second trimester 25.4 - 83.3 Third trimester 58.7 - 214.0 Postmenopausal 0.0 - 0.1Performed at: [facility] [address] [id number] Director: Gonzalo Sevilla PhD, Phone: [phone] Start: 01-16-2025 Viral antigen assay Mol ly Eddie PUMP SERVICER HELPER-C Work Phone: Start: 01-09-2025 Viral antigen assay Mol ly Phoenix PUMP SERVICER HELPER-C Work Phone: Start: 11-17-2024 Pelvic echography Riya Eddie PUMP SERVICER HELPER-C Work Phone: Start: 11-10-2024 Viral antigen assay Mol ly [place] PUMP SERVICER HELPER-C Work Phone: Start: 11-03-2024 Viral antigen assay Mol ly [place] PUMP SERVICER HELPER-C Work Phone: Start: 01-01-2024 Viral antigen assay AGUILAR Hampton Work Phone: Start: 12-23-2023 Viral antigen assay AGUILAR Hampton Work Phone: Start: 11-18-2023 Viral antigen assay JOSETTE FINCH Work Phone: Start: 10-19-2023 Viral antigen assay JOSETTE FINCH Work Phone: Start: 09-22-2023 Viral antigen assay JOSETTE FINCH Work Phone: No history of surgery Dania Whitfield Work Phone: Viral antigen assay Viral antigen assay Viral antigen assay Plan of Treatment Date Care Activity Detail Author Start: 09-13-2025 End: 09-13-2025 Patient encounter procedure Ectopic -[facility] Work Phone: Start: 09-11-2025 Viral antigen assay SARS-CoV-2 Antigen (Rapid) [facility] Start: 09-11-2025 Registered Recurring Registered Recurring -Employee Health Start: 09-02-2025 Anesthesia intraperitoneal lower abd w/laps nos ANESTH SURG LOWER ABDOMEN [facility] Start: 09-02-2025 Laps tx ectopic preg w/salping&/oophorectomy TREAT ECTOPIC [facility] Start: 09-02-2025 Patient discharge [facility] Start: 09-02-2025 Following clinical pathway protocol [facility] Start: 09-02-2025 Ambulation without limitation [facility] Start: 09-02-2025 Medication education [facility] Start: 09-02-2025 Taking patient vital signs [facility] Start: 09-02-2025 Vital signs measurements [facility] Start: 09-02-2025 [facility] Start: 09-02-2025 Admission procedure [facility] Start: 09-02-2025 Hospital admission, emergency, from emergency room, medical nature [facility] Start: 05-14-2023 FUV, Provider: Dania Whitfield, Status: Pen, Time: 4:00 PM FUV, Provider: Dania Whitfield, Status: Pen, Time: 4:00 PM [facility] Work Phone: Immunizations Immunization Date Immunization Notes Care Provider Britton huang 04-18-2014 tetanus toxoid, reduced diphtheria toxoid, and acellular pertussis vaccine, adsorbed Dr. Dania Whitfield DO Work Phone: [facility] 08-28-1999 hepatitis B vaccine, pediatric or pediatric/adolescent dosage Dr. Dania Whitfield DO Work Phone: [facility] 07-24-1999 diphtheria, tetanus toxoids and acellular pertussis vaccine Dr. Dania Whitfield DO Work Phone: [facility] 07-24-1999 measles, mumps and rubella virus vaccine Dr. Dania Whitfield DO Work Phone: [facility] 07-24-1999 trivalent poliovirus vaccine, live, oral Dr. Dania Whitfield DO Work Phone: [facility] 03-30-1995 diphtheria, tetanus toxoids and acellular pertussis vaccine Dr. Dania Whitfield DO Work Phone: [facility] 03-30-1995 hepatitis B vaccine, pediatric or pediatric/adolescent dosage Dr. Dania Whitfield DO Work Phone: [facility] 03-30-1995 measles, mumps and rubella virus vaccine Dr. Dania Whitfield DO Work Phone: [facility] 09-30-1994 diphtheria, tetanus toxoids and acellular pertussis vaccine Dr. Dania Whitfield DO Work Phone: [facility] 09-30-1994 trivalent poliovirus vaccine, live, oral Dr. Dania Whitfield DO Work Phone: [facility] 06-03-1994 hepatitis B vaccine, pediatric or pediatric/adolescent dosage Dr. Dania Whitfield DO Work Phone: [facility] 05-30-1994 diphtheria, tetanus toxoids and acellular pertussis vaccine Dr. Dania Whitfield DO Work Phone: [facility] 05-30-1994 trivalent poliovirus vaccine, live, oral Dr. Dania Whitfield DO Work Phone: [facility] 03-31-1994 diphtheria, tetanus toxoids and acellular pertussis vaccine Dr. Dania Whitfield DO Work Phone: [facility] 03-30-1994 trivalent poliovirus vaccine, live, oral Dr. Dania Whitfield DO Work Phone: [facility] Payers Date Payer Category Payer Unknown [id number] 2024 Self-pay [id number] 1995 Unknown [id number] 2.16. [id number] 1993 Unknown [id number] 2.16. [id number] Unknown Self Pay Private Health Insurance [id number] Self-pay [id number] Unknown [id number] 2.16.8 [id number] Unknown [id number] 2.16.8 40.1.041093.3.579.2.462 Unknown [id number] 2.16.8 40.1.441032.3.579.2.462 Unknown [id number] 2.16.8 40.1.804119.3.579.2.462 Unknown [id number] 2.16.8 40.1.713742.3.579.2.462 Unknown [id number] 2.16.8 40.1.479661.3.579.2.462 Unknown [id number] 2.16.8 40.1.738084.3.579.2.462 Unknown [id number] 2.16.8 40.1.508042.3.579.2.462 Unknown [id number] 2.16.8 40.1.301602.3.579.2.462 Unknown [id number] 2.16.8 40.1.588127.3.579.2.462 Unknown [id number] 2.16.8 40.1.107501.3.579.2.462 Unknown [id number] 2.16.8 40.1.864276.3.579.2.462 Unknown [id number] 2.16.8 40.1.727980.3.579.2.462 Unknown [id number] 2.16.8 40.1.805109.3.579.2.462 Unknown [id number] 2.16.8 40.1.013617.3.579.2.462 Unknown [id number] 2.16.8 40.1.952859.3.579.2.462 Unknown [id number] 2.16.8 40.1.563582.3.579.2.462 Unknown [id number] 2.16.8 40.1.959310.3.579.2.462 Unknown [id number] 2.16.8 40.1.781679.3.579.2.462 Unknown [id number] 2.16.8 40.1.683748.3.579.2.462 Unknown [id number] 2.16.8 40.1.542043.3.579.2.462 Social History Date Type Detail Facility [facility] Work Phone: Start: 1995 Sex Assigned At Female [place] Daily caffeine consumption, 2-3 servings a day Daily caffeine consumption, 2-3 servings a day [facility] Work Phone: Start: 10-23-2023 [facility] if ever smoked [facility] Start: 10-23-2023 End: 09-02-2025 Tobacco smoking status NHIS Never smoked tobacco (finding) [facility] Start: 01-29-2025 End: 03-14-2025 Sex Female (finding) [facility] Not [facility] Functional Status Date Assessment Result Facility 09-02-2025 Functional status Ambulates [facility] Work Phone: Mental Status Date Assessment Result Facility 09-02-2025 Cognitive function Level Of Consciousness Awake [facility] Work Phone: 09-02-2025 Cognitive function Voice/Name [facility] Work Phone: Clinical Notes 09-20-2022 to 09-02-2025 Note Date & Type Note Facility 09-02-2025 Consult note [facility] 09-02-2025 Procedure note [facility] 09-02-2025 Progress note [facility] 09-02-2025 Consult note Note Date/Time September 02, 2025 1:10pm [facility] Medical Records Department [address] [place] [address] Anesthesia Postop Eval II 09/02/25 0436 MR#: [id number] Acct: [id number] Name: MECCA FRANKLIN Rep #:[id number] : 1995 29 From: Ralf Orellana MD PCP: Dr. Dania Whitfield, DO Status:R EG SDC Y Race: C Location: [place] [address] Anesthesia Postop Eval I Sum Postop Eval Completion status Anesthesia document: Postop Eval 1 completed: Yes Anesthesia Postop Eval I Summary Anesthesia Postop Eval I Summary: Anesthesia Postop Eval I: Assessment Summary Airway patent Yes 09/02/25 04:17 Spontaneous unlabored Yes 09/02/25 04:17 respirations Mental status Awake,Calm 09/02/25 04:17 nausea Yes 09/02/25 04:17 Vomiting No 09/02/25 04:17 Anesthesia Postop Eval I: Fluid Summary Crystalloid volume administer 600 09/02/25 04:17 (ml) Colloids volume administered ( ml) Blood Product volume administered (ml) Total IV fluid infused 600 09/02/25 04:17 Anesthesia Postop Eval I: Summary Notes Anesthesia Complication No 09/02/25 04:17 Anesthesia Complication Comment: Post-operative progress note Anesthesia: Postop Eval II Evaluation Mental status: Awake and Calm Pain Level: 3 nausea: No Vomiting: No Complications Anesthesia Complication: No 09/02/25435 <Electronically signed by Ralf koch MD> Date _ Ralf Orellana MD Cosigner Signature: Date CC: ~ Signed [facility] Work Phone: 1(970) 449-733610-11-2025 Consult note Author Ralf [facility] Note Date/Time September 02, 2025 4 :[address] [place] [address] Medical Records Department [address] [place] [address] Anesthesia Postop Eval I 09/02/25412 MR#: [id number] Acct: [id number] Name: MECCA FRANKLIN Rep #:[id number] : 1995 29 From: Ralf Orellana MD PCP: Dr. Dania Whitfield, DO Status:R EG SDC Y Race: C Location: [place] [address] Anesthesia: Postop Eval I Current Vital Signs Temperature: 99.8 F Pulse Rate: 89 Blood Pressure: 129/89 Respiratory Rate: 16 Pulse Ox: 94 Oxygen Delivery Method: Room Air Assessment Airway patent: Yes Spontaneous unlabored respirations: Yes Mental status: Awake and Calm nausea: Yes Vomiting: No Anesthesia Complication: No Fluid Hydration Crystalloid volume administer (ml): 600 Total IV fluid infused: 600 Progress Note Anesthesia document: Postop Eval 1 completed: Yes 09/02/25416 <Electronically signed by Ralf koch MD> Date _ Ralf Orellana MD Cosigner Signature: Date CC: ~ Signed [facility] Work Phone: 1(679) 376-568510-11-2025 Discharge summary Author Luz Elena Perez [facility] Note Date/Time September 02, 2025 2 :51am [facility] Medical Records Department [address] [place] [address] Instructions for Home/Discharge Instructions 09/02/25 0248 MR#: [id number] Acct: [id number] Name: MECCA FRANKLIN Rep #:[id number] : 1995 29 From: Luz Elena Bush DO PCP: Dr. Dania Whitfield DO Status:R EG SDC Discharge Instructions DC O2, CPAP, BIPAP needs Home O2 Discharge instructions: No Dressing / Incision Discharge Activity: Return to Normal Activity, May Not Drive (for two weeks or while taking narcotic pain medications.), May Shower and May Take a Tub Bath (in7 days) May resume sexual activity in: 1 week Weight Bearing Status: Full weight bearing Dressing / Incision Call your doctor if you observe: Using more than 1 pad per hour, Shortness of breath, Chest pain and Uncontrolled pain Suture Line Care: Avoid Pulling/Pushing and Avoid Pinching/Bending Remove Dressing in: 1 week (if present) Cleanse incision/area with: Soap & Water and Keep Dressing Clean & Dry Follow Up Care Please Follow Up With: Luz Elena Bush DO When: Call to make an appointment with your doctor for a follow up incision check in 1-2 weeks. Test Results: Test results from this visit will be discussed in further detail at your follow- up appointment, if applicable. Discharge Plan Admission Primary Reason for Your Visit: laparoscopy to treat ectopic Attending Provider: Luz Elena Buhs Primary Care Provider: Dania Whitfield Instructions Print Language: Tunisian Discharge Orders/Prescriptions Prescriptions: New ibuprofen 800 mg tablet 800 mg PO Q8H PRN (Reason: pain) Qty: 30 0RF oxycodone-acetaminophen [Percocet] 5-325 mg tablet 1 tab PO Q4H PRN (Reason: pain) 7 Days Qty: 10 0RF Continued ferrous sulfate [Feosol] 325 mg (65 mg iron) tablet 150 mg PO DAILY Alive Daily Support 180 mcg-25 mg- 25 mg tablet,chewable 1 tab PO BID Held qzazeut-rctgidumafdviy-zlkdle 6-5-2 % cream topical Hold Instructions: Resume on 09/08/25. Discontinued letrozole 2.5 mg tablet 5 mg PO DAILY Qty: 10 0RF Rx Instructions: Take cycle days 3-7 Referrals / Follow Up: Dania Whitfield DO [Primary Care Provider, Internal Medicine] Disposition Disposition (needs filled in before D/C Order can be placed): Home, Self Care 09/02/25 0251<Electronically signed by Luz Elena Bush DO>Luz Elena Bush DO CC: Dr. Dania Whitfield DO ~ Signed [facility] Work Phone: [phone] Consult note [facility] Note Date/Time September 02, 2025 2 :37am [facility] Medical Records Department [address] [place] [address] Pre-Anesthesia Evaluation 09/02/25 0233 MR#: [id number] Acct: [id number] Name: MECCA FRANKLIN Rep #:[id number] : 1995 29 From: Ralf Orellana MD PCP: Dr. Dania Whitfield DO Status:R EG SDC Y Race: C Location: [place] [address] ASA Classification* ASA Classification ASA Classification: 2 and E Assessment & Plan Anesthesia* Anesthesia Assessment Anesthesia Assessment: Discussed sedation and/or anesthesia options, risks, benefits, and alternatives with patient/parents/legal guardian/POA. Questions invited. The patient/parents/legal guardian/POA seems to understand and agrees to proceedwith anesthesia plan. Reviewed the physical assessment, medical history, allergy history and patient home medications list prior to surgery/procedure/anesthetic and documented any changes. Performed airway and anesthesia risk assessments. Anesthesia Type Anesthesia Type: General History Source History Obtained from:: Patient and Chart Anesthesia Focused Assessment* Temperature: 99.0 F Pulse Rate: 106 Blood Pressure: 136/78 Respiratory Rate: 15 Pulse Ox: 97 Oxygen Delivery Method: Room Air Airway Assessment Mouth opens: >3 cm Mallampati Score: II Teeth Condition: Intact Neck Range of motion (ROM): Full ROM Labs Anesthesia Preop lab: CBC WBC, (4.4-11.0) 12.2 K/mm3 H 09/01/25, 20:37 RBC, (4.2-5.4) 3.99 M/mm3 L 09/01/25, 20:37 Hgb, (12.0-15.0) 12.1 g/dL 09/01/25, 20:37 Hct, (37-47) 35.2 % L 09/01/25, 20:37 Plt Count, (150-450) 255 K/mm3 09/01/25, 20:37 CHEMISTRY Potassium, (3.3-5.1) 3.6 mmol/L 09/01/25, 20:37 Sodium, (133-145) 136 mmol/L 09/01/25, 20:37 Phosphorus, (2.7-4.5) 3.5 mg/dL 08/14/25, 08:15 BUN, (4-19) 11 mg/dL 09/01/25, 20:37 Creatinine, (0.70-1.20) 0.61 mg/dL L 09/01/25, 20:37 Glucose, (70-99) 124 mg/dL H 09/01/25, 20:37 TSH, (0.300-4.200) 2.290 uIU/mL 04/06/25, 13:56 COAG HCG, Quant, (<9 non-preg) 390 mIU/mL H 09/01/25, 20:3 7 Pre-Assessment Diagnosis/Proposed Procedure Planned Operative Procedure(s): Diagnostic laparoscopy Anesthesia History Anesthesia History - leasing representative: Anesthesia History - leasing representative Hx Hospitalization Any Problems With Anesthesia No 09/02/25 02:22 Cholinesterase deficiency No 09/02/25 02:22 You/Your Family Experience No 09/02/25 02:22 fever (hyperthermia) with Relationship Recent Exposure to Contagious No 09/02/25 02:22 Disease Does patient have nerve No 09/02/25 02:22 stimulator Patient instructed to have device shut off --Does patient have Pacemaker or ICD? When Was Last Pacemaker Check QUESTION #4 FULL TEXT: You/Your Family Experience fever (hyperthermia) with Anesthesia Last Oral Intake Last Oral intake: Last Oral Intake NPO since Meds taken in AM with sips of water? Meds patient instructed to take am of surgery Any additional information?: Yes NPO since: 19:30 PONV PONV - leasing representative: PONV - leasing representative Female HX of Motion Sickness HX of N/V After Surgery Non-Smoker Duration of Surgery greater than 60 minutes Number of Risk Factors PONV Score Height & Weight Height & Weight: Anesthesia: Height & Weight Height 5 ft 4 in 09/02/25 02:22 Weight: 63.049 kg 09/02/25 02:22 Body Mass Index (BMI) 23.8 09/02/25 02:22 Respiratory Assessment Respiratory Assessment - leasing representative: Respiratory Tract Infection Hx - leasing representative Hx Respiratory Tract Infection No 09/02/25 02:22 STOP Sleep Apnea STOP Sleep Apnea - leasing representative: STOP Sleep Apnea - leasing representative Hx Hypertension No 09/02/25 02:22 Hx Sleep Apnea No 09/02/25 02:22 CPAP BIPAP Do you snore loudly (louder No 09/02/25 02:22 than talking or can be heard Do you often feel tired/ No 09/02/25 02:22 fatigued/ sleepy during daytime? Has anyone observed you stop No 09/02/25 02:22 breathing during sleep? STOP Results Negative 09/02/25 02:22 QUESTION #5 FULL TEXT : Do you snore loudly (louder than talking or can be heard through closed doors)? 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 Specify any problems Hx of Preganancy in last 3 Months Nurse Filling Out Transfusion & Questions: Date: Time: Patient unable to answer at this time (ie. confused, unrespo /Reproduction History /Reproductive History - leasing representative: /Reproductive Hx- leasing representative Hx Now Yes 09/01/25 20:27 Gestational Age (in weeks): EDC: Hx 0 09/01/25 20:27 Hx Para Hx Section SAB No 09/01/25 20:21 [facility] Medical History Anemia Home Medications ?Medication ?Instructions ?Recorded ?Last Taken ?Type ferrous sulfate 325 mg (65 mg 150 mg PO DAILY 10/23/23 Unknown History iron) tablet (Feosol) dapsone 6 %-spironolactone 5 applic topical 11/01/24 U nknown History %-niacinamide 2 % topical cream mv-mn no.97-folic 180 mcg-dha 25 1 tab PO BID 11/01/24 Unknown History mg-herb no.293 25 mg chewable tablet (Alive Daily Support ) letrozole 2.5 mg tablet 5 mg (2 x 2.5 mg) PO DAILY # 10 tabs 02/20/25 Unknown Rx Allergy/AdvReac Type Severity Reaction Status Date / Time amoxicillin (From Augmentin) Allergy Mild Hives Verified 09/01/25 20:21 clavulanic acid (From Allergy Mild Hives Verified 09/01/25 20:21 Augmentin) Family History Grandmother Skin cancer Grandfather Skin cancer CVA (cerebral vascular accident) Father CVA (cerebral vascular accident) Hypertension Brother Hypertension Social History adopted: No household members: spouse housing: house current occupational status: employed 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 09/02/257 <Electronically signed by Ralf koch MD> Date _ Ralf Orellana MD Cosigner Signature: Date CC: ~ Signed [facility] Work Phone: [phone]) 900-295410-11-2025 History and physical note Author Luz Elena Perez [facility] Note Date/Time September 02, 2025 2 :37am [facility] Medical Records Department [address] [place] [address] H&P Exam - ELECTRIC GOLF CART REPAIRER 09/02/25230 MR#: [id number] Acct: [id number] Name: MECCA FRANKLIN Rep #:[id number] : 1995 29 From: Luz Elena Bush DO PCP: Dr. Dania Whitfield, DO Status:R [facility] Location: [place] [address] HPI - General HPI Narrative MECCA FRANKLIN, is a 29 y/o @ unknown gestational age who presents to [facility] ER with vaginal bleeding and a home positive test. She has been seeing anREI doctor and has tried IUI and clomid. This she states was spontaneous. She did have an HSG that was normal earlier this year . Ultrasound shows the following: FINDINGS Anteverted uterus appears normal in size and smooth in contour, measuring 9.2 x 5.4 x 4.3 cm. No discrete uterine myoma is seen. Arcuate versus septate uterine morphology. Endometrial stripe complex appears within normal limits measuring up to 1.6 cm. No intrauterine gestational sac or sac-like structure is seen to confirm an IUP. The cervix is closed. Left ovary has a normal sonographic appearance. The right ovary appears normal,however there is a large complex partially cystic and solid echogenic mass in the right adnexal region, which measures approximately up to 9.6 x 5.3 x 2.5 cm. Small amount of nonspecific free fluid in the cul-de-sac. US/Transvaginal w/Preg US IMPRESSION: No intrauterine gestational sac or sac-like structure to confirm an IUP. There is probable arcuate versus septate uterine morphology. There is a large heterogeneous partially solid and cystic right adnexal mass, which appears separate from the ovary. Findings are suspicious for ectopic , given the absence of an IUP. Recommend clinical correlation with serum beta HCG level, and Knockout Machine Operator consultation. [facility] Medical History Anemia Home Medications ?Medication ?Instructions ?Recorded ?Last Taken ?Type ferrous sulfate 325 mg (65 mg 150 mg PO DAILY 10/23/23 Unknown History iron) tablet (Feosol) dapsone 6 %-spironolactone 5 applic topical 11/01/24 U nknown History %-niacinamide 2 % topical cream mv-mn no.97-folic 180 mcg-dha 25 1 tab PO BID 11/01/24 Unknown History mg-herb no.293 25 mg chewable tablet (Alive Daily Support ) letrozole 2.5 mg tablet 5 mg (2 x 2.5 mg) PO DAILY # 10 tabs 02/20/25 Unknown Rx Allergy/AdvReac Type Severity Reaction Status Date / Time amoxicillin (From Augmentin) Allergy Mild Hives Verified 09/01/25 20:21 clavulanic acid (From Allergy Mild Hives Verified 09/01/25 20:21 Augmentin) Family History Grandmother Skin cancer Grandfather Skin cancer CVA (cerebral vascular accident) Father CVA (cerebral vascular accident) Hypertension Brother Hypertension Social History adopted: No household members: spouse housing: house current occupational status: employed 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 occupational exposures/hazards: Yes pets and animals: Yes pets and animals: cat(s) and dog(s) history of recent travel: No sexually active: Yes Smoking Status: Never smoker alcohol intake: current details: socially substance use type: does not use diet: gluten free caffeine: Yes deanna/yazidism: Taoism seatbelt use: always do you feel safe at home: Yes 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 Constitutional Constitutional: Denies change in weight, fatigue, fever(s), headache(s), poor appetite or weakness Eyes Eyes: Denies blurry vision, change in vision, seeing flashes or spots in vision ENT HEENT: Denies dizziness, headache(s), loss taste/smell or sore throat Cardiovascular Cardiovascular: Denies chest pain, dizziness, dyspnea, irregular heart rhythm, leg edema, palpitations or vomiting Respiratory/Chest Respiratory/Chest: Denies chest tightness, cough, dyspnea or breast pain Gastrointestinal Gastrointestinal: Denies anorexia, constipation, cramping, diarrhea, hemorrhoids, vomiting or weight changes Genitourinary Genitourinary: Denies dysuria, flank pain, genital lesions, urinary frequency orurinary urgency Musculoskeletal Musculoskeletal: Denies back pain, difficulty walking, joint pain, limited rangeof motion, muscle cramps or numbness Integumentary Integumentary: Denies lesions or unusual bruising Neurologic Neurologic: Denies abnormal movements, abnormal speech, dizziness, numbness, seizure-like activity or syncope Psychiatric Psychiatric: Denies anxiety, behavioral changes, change in appetite, change in libido, cognitive impairment, confusion, depression, difficulty concentrating, hallucinations or suicidal thoughts Endocrine Endocrinology: Denies excessive sweating, polydipsia or polyuria Hematologic/Lymphatic Hematologic/Lymphatic: Denies easy bleeding, easy bruising or lymphadenopathy Allergic/Immunologic Allergic/Immunologic: Denies itchy eyes, lip swelling, seasonal rhinorrhea, rhinitis, throat swelling, tongue swelling, eczemia, wheezing or asthma Vital Signs Vital Signs Vital Signs: 09/01/25 20:21 09/01/25 21:20 09/01/25 21:23 Temperature 96.9 F L 98 F 98.2 F Temperature Source Temporal Oral Oral Pulse Rate 119 H 86 83 Respiratory Rate 22 H 16 19 H Blood Pressure 161/95 H 124/90 H 131/84 H Blood Pressure Mean 117 101 99 Pulse Ox 100 99 1 Oxygen Delivery Method Room Air Room Air 09/01/25 22:00 09/01/25 23:00 09/02/25 00:00 Temperature 97.8 F 99.1 F Temperature Source Oral Oral Pulse Rate 88 90 85 Respiratory Rate 17 18 16 Blood Pressure 118/80 115/67 117/57 L Blood Pressure Mean 92 83 77 Pulse Ox 100 98 97 Oxygen Delivery Method Room Air Room Air Room Air 09/02/25 00:00 09/02/25 01:00 09/02/25 02:00 Temperature 99.3 F H 99.1 F Temperature Source Oral Oral Pulse Rate 87 85 106 H Respiratory Rate 18 18 15 Blood Pressure 112/58 L 112/58 L 136/78 H Blood Pressure Mean 76 76 97 Pulse Ox 97 98 97 Oxygen Delivery Method Room Air Room Air Room Air 09/02/25 02:27 Temperature 99.0 F Temperature Source Pulse Rate 106 H Respiratory Rate 15 Blood Pressure 136/78 H Blood Pressure Mean 97 Pulse Ox 97 Oxygen Delivery Method Weight Weight: 139 lb Body Mass Index (BMI) 23.8 Physical Exam Const alert, oriented x3, no apparent distress and healthy appearing General Appearance: cooperative; Negative for anxious HEENT normocephalic Face and Sinus: normal facial exam Eyes EOMs intact bilaterally and no scleral icterus General Eye: normal appearance of both eyes Neck full ROM and supple Lymph Lymphatic: no lymphadenopathy noted Resp normal respiratory effort Effort and Inspection: able to speak in complete sentences GI soft to palpation Palpation: soft Rectal Exam: other Other Details: lower abdomen diffusely tender bilaterally Extremity normal to inspection, full ROM and no clubbing, cyanosis or edema General Extremity: Negative for calf tenderness or edema Skin Lesions: no lesions Rashes: no rashes Psych mental status grossly normal Labs Labs Labs: Blood Type B POSITIVE Hct, (37-47) 35.2 % L Hgb, (12.0-15.0) 12.1 g/dL Obstetrics Ultrasound Syphilis Total Ab, (Nonreactive) Nonreactive VZV IgG Antibody, (Non Reactive) Reactive Rubella IgG Antibody, (Nonreactive) REAC Hep Bs Antigen, (Nonreactive) Nonreactive HIV 1&2 Antibody, (Nonreactive) Nonreactive Assessment & Plan (1) Ectopic : PLAN: After discussing the patient's diagnosis and treatment plan options, patient wishes to proceed with surgical management. I have discussed with the patient the risks, benefits, and alternatives of the procedure which include butare not limited to risks of anesthesia, bleeding, infection, possible damage to bowel, bladder, or surrounding vasculature which could lead to additional surgery to evaluate any complications. Patient agrees to procedure and wishes to proceed. ACOG/uptodate references given for additional information regardingprocedure. plan for laparoscopic evacuation of hemoperitoneum and treatment of ectopic . I have discussed with the patient that she will likely have a suction, irrigation of the clot and we will find where the ectopic is. If located in a fallopian tube then we will need to remove that tube. If located catarina ovary then we may need to remove that ovary. 09/02/25236 <Electronically signed by Luz Elena Bush DO> Cosigner Signature (if applicable): CC: Dr. Luz Elena Bush DO; Dr. Dania Whitfield DO~ Signed [facility] Work Phone: [phone]) 527-842010-11-2025 Consult note [facility] Medical Records Department [address] [place] [address] Anesthesia Postop Eval I 09/02/25412 MR#: [id number] Acct: [id number] Name: MECCA FRANKLIN Rep #:[id number] : 1995 29 From: Ralf Orellana MD PCP: Dr. Dania Whitfield DO Status:R EG SDC Y Race: C Location: [place] [address] Anesthesia: Postop Eval I Current Vital Signs Temperature: 99.8 F Pulse Rate: 89 Blood Pressure: 129/89 Respiratory Rate: 16 Pulse Ox: 94 Oxygen Delivery Method: Room Air Assessment Airway patent: Yes Spontaneous unlabored respirations: Yes Mental status: Awake and Calm nausea: Yes Vomiting: No Anesthesia Complication: No Fluid Hydration Crystalloid volume administer (ml): 600 Total IV fluid infused: 600 Progress Note Anesthesia document: Postop Eval 1 completed: Yes 09/02/25416 zee HART> Date _ Ralf Wong Signature: Date CC: ~ Signed [facility]10-11-2025 Evaluation note* Diagnosis Onset Date Resolution Status Admit Date Ectopic acute September 02, 2025 2:05am Ectopic acute September 13, 2025 3:01pm [facility] Work Phone: [phone]) 983-536810-11-2025 Discharge summary Author Dilshad Jones [facility] Note Date/Time September 02, 2025 1 :58am [facility] Medical Records Department [address] [place] [address] Emergency Department Summary 09/01/25 MR#: [id number] Acct: [id number] Name: MECCA FRANKLIN Rep #:[id number] : 1995 29 From: Dilshad Jones DO PCP: Dr. Dania Whitfield DO Status:R EG ER Location: ED HPI HPI - Female History of Present Illness Chief Complaint: Vag Bld, Preg Narrative Narrative: Patient is a 29-year-old female with past medical history of anemia who presentsto the emergency department the chief complaint of abdominal pain. Patient states that for the last week she has been dealing with a miscarriage which she states that her last hCG quant was around 605 she is following with ELECTRIC GOLF CART REPAIRER aboutthis. She states that the pain had been progressively worsening prompting her to come here for further evaluation management she states that she originally had worsening abdominal pain in the upper portion of her abdomen and now it is in the lower portion. Patient denies any sick contacts. [facility] Medical History Anemia Home Medications ?Medication ?Instructions ?Recorded ?Last Taken ?Type ferrous sulfate 325 mg (65 mg 150 mg PO DAILY 10/23/23 Unknown History iron) tablet (Feosol) dapsone 6 %-spironolactone 5 applic topical 11/01/24 U nknown History %-niacinamide 2 % topical cream mv-mn no.97-folic 180 mcg-dha 25 1 tab PO BID 11/01/24 Unknown History mg-herb no.293 25 mg chewable tablet (Alive Daily Support ) letrozole 2.5 mg tablet 5 mg (2 x 2.5 mg) PO DAILY # 10 tabs 02/20/25 Unknown Rx Allergy/AdvReac Type Severity Reaction Status Date / Time amoxicillin (From Augmentin) Allergy Mild Hives Verified 09/01/25 20:21 clavulanic acid (From Allergy Mild Hives Verified 09/01/25 20:21 Augmentin) Family History Grandmother Skin cancer Grandfather Skin cancer CVA (cerebral vascular accident) Father CVA (cerebral vascular accident) Hypertension Brother Hypertension Social History adopted: No household members: spouse housing: house current occupational status: employed 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[employer] current occupational exposures/hazards: Yes pets and animals: Yes pets and animals: cat(s) and dog(s) history of recent travel: No sexually active: Yes Smoking Status: Never smoker alcohol intake: current details: socially substance use type: does not use diet: gluten free caffeine: Yes deanna/yazidism: Taoism seatbelt use: always do you feel safe at home: Yes 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 ROS ED ROS Narrative Constitutional: Denies any fevers, chills, headaches Eyes: Denies double vision blurry vision changes vision Cardiovascular: Denies chest pain Respiratory: Denies shortness of breath Abdomen: Complains of abdominal pain as noted above Neurological: Denies numbness, weakness, tingling Musculoskeletal: Denies back pain Skin: Denies any rashes or lesions EXAM Physical Exam Narrative Exam Narrative: General: Patient was lying in bed rest comfortably did not appear to be acute distress Head: Atraumatic, normocephalic Eyes: PERRL bilaterally, EOMI bilaterally, no conjunctival injection noted Neck: Soft, supple, trachea midline Cardiovascular: Patient tachycardic with a regular rhythm Respiratory: Clear to auscultation bilaterally Abdomen: Soft, nondistended, diffuse tenderness to palpation Extremities: +5/5 strength noted in the bilateral upper and lower extremities Neurological: Patient following commands knew that she was at [facility] year is 2024 Skin: Warm, dry, intact no rashes or lesions noted Const Vital Signs: 09/01/25 20:21 09/01/25 21:20 09/01/25 21:23 Temperature 96.9 F L 98 F 98.2 F Temperature Source Temporal Oral Oral Pulse Rate 119 H 86 83 Respiratory Rate 22 H 16 19 H Blood Pressure 161/95 H 124/90 H 131/84 H Blood Pressure Mean 117 101 99 Pulse Ox 100 99 1 Oxygen Delivery Method Room Air Room Air 09/01/25 22:00 09/01/25 23:00 09/02/25 00:00 Temperature 97.8 F 99.1 F Temperature Source Oral Oral Pulse Rate 88 90 85 Respiratory Rate 17 18 16 Blood Pressure 118/80 115/67 117/57 L Blood Pressure Mean 92 83 77 Pulse Ox 100 98 97 Oxygen Delivery Method Room Air Room Air Room Air MDM MDM MDM Narrative Medical decision making narrative: Patient is a 29-year-old female who presents to the emergency department the chief complaint of abdominal pain. On the differential diagnosis includes but not limited to ectopic , endometritis, appendicitis, cholecystitis, pancreatitis. Once the workup is obtained and reviewed she will be reevaluated. Patient be given IV fluids Zofran morphine. Patient CBC reviewed and showed a leukocytosis of 12,000, hemoglobin 12.1, platecount 255. Patient sodium is 136, potassium low at 3.6, creatinine 0.61. Patient lactic acid normal at less than 1, AST and ALT were 20 and 17 respectively. Patient's hCG quant was 390 with positive urinalysis reviewed showed no evidence of infection. Patient's transvaginal ultrasound wasreviewed and showed no intrauterine gestational sac or saclike structure to confirm an IUP. There is probable arcuate versus septate uterine morphology. There is a large heterogeneous partially solid and cystic right adnexal mass which appears to be separate from the ovary findings suspicious for ectopic . Paged [employer] REPAIR[employer] physician Dr. Logan who is currently in a ELECTRIC GOLF CART REPAIRER emergency andshe states that she will call back when she is done with the case. This will besigned out to overnight provider to discuss with her and follow-up on ultimate disposition see note for addendum details Lab Data Labs: Laboratory Results - last 24 hr 09/01/25 09/01/25 09/01/25 20:37 20:55 21:46 WBC 12.2 H RBC 3.99 L Hgb 12.1 Hct 35.2 L MCV 88.2 MCH 30.3 MCHC 34.4 RDW Std Deviation 40.0 RDW Coeff of Jayson 12.4 Plt Count 255 MPV 10.6 Immature Gran % (Auto) 0.400 Neut % (Auto) 80.0 H Lymph % (Auto) 13.6 L [place] % (Auto) 4.7 Eos % (Auto) 1.1 Baso % (Auto) 0.2 Absolute Neuts (auto) 9.7 H Absolute Lymphs (auto) 1.66 Nucleated RBC % 0 Sodium 136 Potassium 3.6 Chloride 100 Carbon Dioxide 22.4 Anion Gap 14 BUN 11 Creatinine 0.61 L Estim Creat Clear Calc 115.39 Est GFR (MDRD) Non-Af 122 BUN/Creatinine Ratio 18.1 Glucose 124 H Lactic Acid < 1.0 Calcium 9.4 Total Bilirubin 0.48 AST 20 ALT 17 Alkaline Phosphatase 59 Total Protein 7.9 Albumin 5.0 Globulin 2.9 Albumin/Globulin Ratio 1.7 HCG, Quant 390 H Serum , Qual POSITIVE Urine Color Straw Urine Clarity Clear Urine pH 6.0 Ur Specific Harrah 1.010 Urine Protein 15 H Urine Glucose (UA) Normal Urine Ketones 15 H Urine Occult Blood 50 H Urine Nitrite Negative Urine Bilirubin Negative Urine Urobilinogen Normal Ur Leukocyte Esterase Negative Urine RBC 0-5 SEEN Urine WBC 0-5 SEEN Ur Squamous Epith Cells 0-5 SEEN Ur Transition Epith Cell 0-5 SEEN Urine Bacteria 0 SEEN Urine Mucus 0 SEEN Radiography Diagnostic Testing: Clinical Impression(s) from Imaging Studies Obstetrics Ultrasound 09/01/25 20:25 IMPRESSION: No intrauterine gestational sac or sac-like structure to confirm an IUP. There is probable arcuate versus septate uterine morphology. There is a large heterogeneous partially solid and cystic right adnexal mass, which appears separate from the ovary. Findings are suspicious for ectopic , given the absence of an IUP. Recommend clinical correlation with serum beta HCG level, and Knockout Machine Operator consultation. Reading Location: [id number] Discharge Plan Triage Chief Complaint: Vag Bld, Preg ED Provider: Dilshad Jones Dx/Rx/DC Orders Clinical Impression: Abdominal pain, History of anemia Prescriptions: No Action ferrous sulfate [Feosol] 325 mg (65 mg iron) tablet 150 mg PO DAILY Alive Daily Support 180 mcg-25 mg- 25 mg tablet,chewable 1 tab PO BID jyrcfpo-ddvwlazepepctt-pdwyte 6-5-2 % cream topical letrozole 2.5 mg tablet 5 mg PO DAILY Qty: 10 0RF Rx Instructions: Take cycle days 3-7 Primary Care Provider: Dania Whitfield Referrals: Dania Whitfield DO [Primary Care Provider, Internal Medicine] Print Language: Tunisian What to do if you have Problems For any increased pain, shortness of breath, bleeding, nausea or vomiting, chestpain, or any unexpected problems, contact your Primary Care Provider. Call [facility] ([phone]) or report to the closest Emergency Room. Call 911 if necessary. 09/02/25 010 <Electronically signed by Dilshad Jones DO> Cosigner Signature (if applicable): CC: Dr. Dania Whitfield DO ~ Signed ADDENDUM by Av Barajas DO on 09/02/25 at 0158 The patient was signed out to me while awaiting evaluation by ELECTRIC GOLF CART REPAIRER. The case was discussed with ELECTRIC GOLF CART REPAIRER Dr. Logan. She reviewed the patient's labs and ultrasound and feels that the patient most likely has a ruptured ectopic which is constituting the low hCG and large size on the image. She believes the patient will need surgical resolution of this. Therefore the patient will be admitted to her service for potential surgery regarding a ruptured ectopic . The patient has remained hemodynamically stable while in the ER. 09/02/25157<Electronically signed by Av Barajas DO> Cosigner Signature (if applicable): cc: Dr. Dania Whitfield DO ~* Signed [facility] Work Phone: [phone] 707-697510-11-2025 Discharge summary [facility] Medical Records Department [address] [place] [address] Instructions for Home/Discharge Instructions 09/02/25 0248 MR#: [id number] Acct: [id number] Name: MECCA FRANKLIN Rep #:[id number] : 1995 29 From: Luz Elena Bush DO PCP: Dr. Dania Whitfield DO Status:R EG SDC Discharge Instructions DC O2, CPAP, BIPAP needs Home O2 Discharge instructions: No Dressing / Incision Discharge Activity: Return to Normal Activity, May Not Drive (for two weeks or while taking narcotic pain medications.), May Shower and May Take a Tub Bath (in7 days) May resume sexual activity in: 1 week Weight Bearing Status: Full weight bearing Dressing / Incision Call your doctor if you observe: Using more than 1 pad per hour, Shortness of breath, Chest pain and Uncontrolled pain Suture Line Care: Avoid Pulling/Pushing and Avoid Pinching/Bending Remove Dressing in: 1 week (if present) Cleanse incision/area with: Soap & Water and Keep Dressing Clean & Dry Follow Up Care Please Follow Up With: Luz Elena Bush DO When: Call to make an appointment with your doctor for a follow up incision check in 1-2 weeks. Test Results: Test results from this visit will be discussed in further detail at your follow- up appointment, if applicable. Discharge Plan Admission Primary Reason for Your Visit: laparoscopy to treat ectopic Attending Provider: Luz Elena Bush Primary Care Provider: Dania Whitfield Instructions Print Language: Tunisian Discharge Orders/Prescriptions Prescriptions: New ibuprofen 800 mg tablet 800 mg PO Q8H PRN (Reason: pain) Qty: 30 0RF oxycodone-acetaminophen [Percocet] 5-325 mg tablet 1 tab PO Q4H PRN (Reason: pain) 7 Days Qty: 10 0RF Continued ferrous sulfate [Feosol] 325 mg (65 mg iron) tablet 150 mg PO DAILY Alive Daily Support 180 mcg-25 mg- 25 mg tablet,chewable 1 tab PO BID Held khpqoxg-jwxuqvgefynwis-uaynxz 6-5-2 % cream topical Hold Instructions: Resume on 09/08/25. Discontinued letrozole 2.5 mg tablet 5 mg PO DAILY Qty: 10 0RF Rx Instructions: Take cycle days 3-7 Referrals / Follow Up: Dania Whitfield DO [Primary Care Provider, Internal Medicine] Disposition Disposition (needs filled in before D/C Order can be placed): Home, Self Care 09/02/25 0251Jennifer Gladys Perez DO CC: Dr. Dania Whitfield DO ~ Signed [facility]10-11-2025 Consult note [facility] Medical Records Department [address] [place] [address] Pre-Anesthesia Evaluation 09/02/25 0233 MR#: [id number] Acct: [id number] Name: MECCA FRANKLIN Rep #:[id number] : 1995 29 From: Ralf Orellana MD PCP: Dr. Dania Whitfield, DO Status:R EG SDC Y Race: C Location: [place] [address] ASA Classification* ASA Classification ASA Classification: 2 and E Assessment & Plan Anesthesia* Anesthesia Assessment Anesthesia Assessment: Discussed sedation and/or anesthesia options, risks, benefits, and alternatives with patient/parents/legal guardian/POA. Questions invited. The patient/parents/legal guardian/POA seems to understand and agrees to proceedwith anesthesia plan. Reviewed the physical assessment, medical history, allergy history and patient home medications list prior to surgery/procedure/anesthetic and documented any changes. Performed airway and anesthesia risk assessments. Anesthesia Type Anesthesia Type: General History Source History Obtained from:: Patient and Chart Anesthesia Focused Assessment* Temperature: 99.0 F Pulse Rate: 106 Blood Pressure: 136/78 Respiratory Rate: 15 Pulse Ox: 97 Oxygen Delivery Method: Room Air Airway Assessment Mouth opens: >3 cm Mallampati Score: II Teeth Condition: Intact Neck Range of motion (ROM): Full ROM Labs Anesthesia Preop lab: CBC WBC, (4.4-11.0) 12.2 K/mm3 H 09/01/25, 20:37 RBC, (4.2-5.4) 3.99 M/mm3 L 09/01/25, 20:37 Hgb, (12.0-15.0) 12.1 g/dL 09/01/25, 20:37 Hct, (37-47) 35.2 % L 09/01/25, 20:37 Plt Count, (150-450) 255 K/mm3 09/01/25, 20:37 CHEMISTRY Potassium, (3.3-5.1) 3.6 mmol/L 09/01/25, 20:37 Sodium, (133-145) 136 mmol/L 09/01/25, 20:37 Phosphorus, (2.7-4.5) 3.5 mg/dL 08/14/25, 08:15 BUN, (4-19) 11 mg/dL 09/01/25, 20:37 Creatinine, (0.70-1.20) 0.61 mg/dL L 09/01/25, 20:37 Glucose, (70-99) 124 mg/dL H 09/01/25, 20:37 TSH, (0.300-4.200) 2.290 uIU/mL 04/06/25, 13:56 COAG HCG, Quant, (<9 non-preg) 390 mIU/mL H 09/01/25, 20:3 7 Pre-Assessment Diagnosis/Proposed Procedure Planned Operative Procedure(s): Diagnostic laparoscopy Anesthesia History Anesthesia History - leasing representative: Anesthesia History - leasing representative Hx Hospitalization Any Problems With Anesthesia No 09/02/25 02:22 Cholinesterase deficiency No 09/02/25 02:22 You/Your Family Experience No 09/02/25 02:22 fever (hyperthermia) with Relationship Recent Exposure to Contagious No 09/02/25 02:22 Disease Does patient have nerve No 09/02/25 02:22 stimulator Patient instructed to have device shut off --Does patient have Pacemaker or ICD? When Was Last Pacemaker Check QUESTION #4 FULL TEXT: You/Your Family Experience fever (hyperthermia) with Anesthesia Last Oral Intake Last Oral intake: Last Oral Intake NPO since Meds taken in AM with sips of water? Meds patient instructed to take am of surgery Any additional information?: Yes NPO since: 19:30 PONV PONV - leasing representative: PONV - leasing representative Female HX of Motion Sickness HX of N/V After Surgery Non-Smoker Duration of Surgery greater than 60 minutes Number of Risk Factors PONV Score Height & Weight Height & Weight: Anesthesia: Height & Weight Height 5 ft 4 in 09/02/25 02:22 Weight: 63.049 kg 09/02/25 02:22 Body Mass Index (BMI) 23.8 09/02/25 02:22 Respiratory Assessment Respiratory Assessment - leasing representative: Respiratory Tract Infection Hx - leasing representative Hx Respiratory Tract Infection No 09/02/25 02:22 STOP Sleep Apnea STOP Sleep Apnea - leasing representative: STOP Sleep Apnea - leasing representative Hx Hypertension No 09/02/25 02:22 Hx Sleep Apnea No 09/02/25 02:22 CPAP BIPAP Do you snore loudly (louder No 09/02/25 02:22 than talking or can be heard Do you often feel tired/ No 09/02/25 02:22 fatigued/ sleepy during daytime? Has anyone observed you stop No 09/02/25 02:22 breathing during sleep? STOP Results Negative 09/02/25 02:22 QUESTION #5 FULL TEXT : Do you snore loudly (louder than talking or can be heard through closeddoors)? 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 Specify any problems Hx of Preganancy in last 3 Months Nurse Filling Out Transfusion & Questions: Date: Time: Patient unable to answer at this time (ie. confused, unrespo /Reproduction History /Reproductive History - leasing representative: /Reproductive Hx- leasing representative Hx Now Yes 09/01/25 20:27 Gestational Age (in weeks): EDC: Hx 0 09/01/25 20:27 Hx Para Hx Section SAB No 09/01/25 20:21 PFSH Medical History Anemia Home Medications ?Medication ?Instructions ?Recorded ?Last Taken ?Type ferrous sulfate 325 mg (65 mg 150 mg PO DAILY 10/23/23 Unknown History iron) tablet (Feosol) dapsone 6 %-spironolactone 5 applic topical 11/01/24 U nknown History %-niacinamide 2 % topical cream mv-mn no.97-folic 180 mcg-dha 25 1 tab PO BID 11/01/24 Unknown History mg-herb no.293 25 mg chewable tablet (Alive Daily Support ) letrozole 2.5 mg tablet 5 mg (2 x 2.5 mg) PO DAILY # 10 tabs 02/20/25 Unknown Rx Allergy/AdvReac Type Severity Reaction Status Date / Time amoxicillin (From Augmentin) Allergy Mild Hives Verified 09/01/25 20:21 clavulanic acid (From Allergy Mild Hives Verified 09/01/25 20:21 Augmentin) Family History Grandmother Skin cancer Grandfather Skin cancer CVA (cerebral vascular accident) Father CVA (cerebral vascular accident) Hypertension Brother Hypertension Social History adopted: No household members: spouse housing: house current occupational status: employed 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 09/02/25 0237 zee HART> Date _ Ralf Wong Signature: Date CC: ~ Signed [facility]10-11-2025 History and physical note [facility] Medical Records Department [address] [place] [address] H&P Exam - ELECTRIC GOLF CART REPAIRER 09/02/25 0231 MR#: [id number] Acct: [id number] Name: MECCA FRANKLIN Rep #:[id number] : 1995 29 From: Luz Elena Bush DO PCP: Dr. Dania Whitfield DO Status:R [facility] Location: [place] [address] HPI - General HPI Narrative MECCA FRANKLIN, is a 29 y/o @ unknown gestational age who presents to [facility] ER with vaginal bleeding and a home positive test. She has been seeing anREI doctor and has tried IUI and clomid. This she states was spontaneous. She did have an HSG that was normal earlier this year . Ultrasound shows the following: FINDINGS Anteverted uterus appears normal in size and smooth in contour, measuring 9.2 x 5.4 x 4.3 cm. No discrete uterine myoma is seen. Arcuate versus septate uterine morphology. Endometrial stripe complex appears within normal limits measuring up to 1.6 cm. No intrauterine gestational sac or sac-like structure is seen to confirm an IUP. The cervix is closed. Left ovary has a normal sonographic appearance. The right ovary appears normal,however there is a large complex partially cystic and solid echogenic mass in the right adnexal region, which measures approximately up to 9.6x 5.3 x 2.5 cm. Small amount of nonspecific free fluid in the cul-de-sac. US/Transvaginal w/Preg US IMPRESSION: No intrauterine gestational sac or sac-like structure to confirm an IUP. There is probable arcuate versus septate uterine morphology. There is a large heterogeneous partially solid and cystic right adnexal mass, which appears separate from the ovary. Findings are suspicious for ectopic , given the absence of an IUP. Recommend clinical correlation with serum beta HCG level, and Knockout Machine Operator consultation. [facility] Medical History Anemia Home Medications ?Medication ?Instructions ?Recorded ?Last Taken ?Type ferrous sulfate 325 mg (65 mg 150 mg PO DAILY 10/23/23 Unknown History iron) tablet (Feosol) dapsone 6 %-spironolactone 5 applic topical 11/01/24 U nknown History %-niacinamide 2 % topical cream mv-mn no.97-folic 180 mcg-dha 25 1 tab PO BID 11/01/24 Unknown History mg-herb no.293 25 mg chewable tablet (Alive Daily Support ) letrozole 2.5 mg tablet 5 mg (2 x 2.5 mg) PO DAILY # 10 tabs 02/20/25 Unknown Rx Allergy/AdvReac Type Severity Reaction Status Date / Time amoxicillin (From Augmentin) Allergy Mild Hives Verified 09/01/25 20:21 clavulanic acid (From Allergy Mild Hives Verified 09/01/25 20:21 Augmentin) Family History Grandmother Skin cancer Grandfather Skin cancer CVA (cerebral vascular accident) Father CVA (cerebral vascular accident) Hypertension Brother Hypertension Social History adopted: No household members: spouse housing: house current occupational status: employed 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 occupational exposures/hazards: Yes pets and animals: Yes pets and animals: cat(s) and dog(s) history of recent travel: No sexually active: Yes Smoking Status: Never smoker alcohol intake: current details: socially substance use type: does not use diet: gluten free caffeine: Yes deanna/yazidism: Taoism seatbelt use: always do you feel safe at home: Yes 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 Constitutional Constitutional: Denies change in weight, fatigue, fever(s), headache(s), poor appetite or weakness Eyes Eyes: Denies blurry vision, change in vision, seeing flashes or spots in vision ENT HEENT: Denies dizziness, headache(s), loss taste/smell or sore throat Cardiovascular Cardiovascular: Denies chest pain, dizziness, dyspnea, irregular heart rhythm, leg edema, palpitations or vomiting Respiratory/Chest Respiratory/Chest: Denies chest tightness, cough, dyspnea or breast pain Gastrointestinal Gastrointestinal: Denies anorexia, constipation, cramping, diarrhea, hemorrhoids, vomiting or weight changes Genitourinary Genitourinary: Denies dysuria, flank pain, genital lesions, urinary frequency orurinary urgency Musculoskeletal Musculoskeletal: Denies back pain, difficulty walking, joint pain, limited rangeof motion, muscle cramps or numbness Integumentary Integumentary: Denies lesions or unusual bruising Neurologic Neurologic: Denies abnormal movements, abnormal speech, dizziness, numbness, seizure-like activity or syncope Psychiatric Psychiatric: Denies anxiety, behavioral changes, change in appetite, change in libido, cognitive impairment, confusion, depression, difficulty concentrating, hallucinations or suicidal thoughts Endocrine Endocrinology: Denies excessive sweating, polydipsia or polyuria Hematologic/Lymphatic Hematologic/Lymphatic: Denies easy bleeding, easy bruising or lymphadenopathy Allergic/Immunologic Allergic/Immunologic: Denies itchy eyes, lip swelling, seasonal rhinorrhea, rhinitis, throat swelling, tongue swelling, eczemia, wheezing or asthma Vital Signs Vital Signs Vital Signs: 09/01/25 20:21 09/01/25 21:20 09/01/25 21:23 Temperature 96.9 F L 98 F 98.2 F Temperature Source Temporal Oral Oral Pulse Rate 119 H 86 83 Respiratory Rate 22 H 16 19 H Blood Pressure 161/95 H 124/90 H 131/84 H Blood Pressure Mean 117 101 99 Pulse Ox 100 99 1 Oxygen Delivery Method Room Air Room Air 09/01/25 22:00 09/01/25 23:00 09/02/25 00:00 Temperature 97.8 F 99.1 F Temperature Source Oral Oral Pulse Rate 88 90 85 Respiratory Rate 17 18 16 Blood Pressure 118/80 115/67 117/57 L Blood Pressure Mean 92 83 77 Pulse Ox 100 98 97 Oxygen Delivery Method Room Air Room Air Room Air 09/02/25 00:00 09/02/25 01:00 09/02/25 02:00 Temperature 99.3 F H 99.1 F Temperature Source Oral Oral Pulse Rate 87 85 106 H Respiratory Rate 18 18 15 Blood Pressure 112/58 L 112/58 L 136/78 H Blood Pressure Mean 76 76 97 Pulse Ox 97 98 97 Oxygen Delivery Method Room Air Room Air Room Air 09/02/25 02:27 Temperature 99.0 F Temperature Source Pulse Rate 106 H Respiratory Rate 15 Blood Pressure 136/78 H Blood Pressure Mean 97 Pulse Ox 97 Oxygen Delivery Method Weight Weight: 139 lb Body Mass Index (BMI) 23.8 Physical Exam Const alert, oriented x3, no apparent distress and healthy appearing General Appearance: cooperative; Negative for anxious HEENT normocephalic Face and Sinus: normal facial exam Eyes EOMs intact bilaterally and no scleral icterus General Eye: normal appearance of both eyes Neck full ROM and supple Lymph Lymphatic: no lymphadenopathy noted Resp normal respiratory effort Effort and Inspection: able to speak in complete sentences GI soft to palpation Palpation: soft Rectal Exam: other Other Details: lower abdomen diffusely tender bilaterally Extremity normal to inspection, full ROM and no clubbing, cyanosis or edema General Extremity: Negative for calf tenderness or edema Skin Lesions: no lesions Rashes: no rashes Psych mental status grossly normal Labs Labs Labs: Blood Type B POSITIVE Hct, (37-47) 35.2 % L Hgb, (12.0-15.0) 12.1 g/dL Obstetrics Ultrasound Syphilis Total Ab, (Nonreactive) Nonreactive VZV IgG Antibody, (Non Reactive) Reactive Rubella IgG Antibody, (Nonreactive) REAC Hep Bs Antigen, (Nonreactive) Nonreactive HIV 1&2 Antibody, (Nonreactive) Nonreactive Assessment & Plan (1) Ectopic : PLAN: After discussing the patient's diagnosis and treatment plan options, patient wishes to proceed with surgical management. I have discussed with the patient the risks, benefits, and alternatives of the procedure which include butare not limited to risks of anesthesia, bleeding, infection, possible damage to bowel, bladder, or surrounding vasculature which could lead to additional surgery to evaluate any complications. Patient agrees to procedure and wishes to proceed. ACOG/uptodate references given for additional information regardingprocedure. plan for laparoscopic evacuation of hemoperitoneum and treatment of ectopic . I have discussed with the patient that she will likely have a suction, irrigation of the clot and we will find where the ectopic is. If located in a fallopian tube then we will need to remove that tube. If located catarina ovary then we may need to remove that ovary. 09/02/25 0237 Cosigner Signature (if applicable): CC: Dr. Luz Elena Bush DO; Dr. Dania Whitfield DO~ Signed [facility]10-11-2025 Discharge summary [facility] Medical Records Department [address] [place] [address] Emergency Department Summary 09/01/25 MR#: [id number] Acct: [id number] Name: MECCA FRANKLIN Rep #:[id number] : 1995 29 From: Dilshad Jones DO PCP: Dr. Dania Whitfield DO Status:R EG ER Location: ED HPI HPI - Female History of Present Illness Chief Complaint: Vag Bld, Preg Narrative Narrative: Patient is a 29-year-old female with past medical history of anemia who presentsto the emergency department the chief complaint of abdominal pain. Patient states that for the last week she has been dealing with a miscarriage which she states that her last hCG quant was around 605 she is following with ELECTRIC GOLF CART REPAIRER aboutthis. She states that the pain had been progressively worsening prompting her to come here for further evaluation management she states that she originally had worsening abdominal painin the upper portion of her abdomen and now it is in the lower portion. Patient denies any sick contacts. [facility] Medical History Anemia Home Medications ?Medication ?Instructions ?Recorded ?Last Taken ?Type ferrous sulfate 325 mg (65 mg 150 mg PO DAILY 10/23/23 Unknown History iron) tablet (Feosol) dapsone 6 %-spironolactone 5 applic topical 11/01/24 U nknown History %-niacinamide 2 % topical cream mv-mn no.97-folic 180 mcg-dha 25 1 tab PO BID 11/01/24 Unknown History mg-herb no.293 25 mg chewable tablet (Alive Daily Support ) letrozole 2.5 mg tablet 5 mg (2 x 2.5 mg) PO DAILY # 10 tabs 02/20/25 Unknown Rx Allergy/AdvReac Type Severity Reaction Status Date / Time amoxicillin (From Augmentin) Allergy Mild Hives Verified 09/01/25 20:21 clavulanic acid (From Allergy Mild Hives Verified 09/01/25 20:21 Augmentin) Family History Grandmother Skin cancer Grandfather Skin cancer CVA (cerebral vascular accident) Father CVA (cerebral vascular accident) Hypertension Brother Hypertension Social History adopted: No household members: spouse housing: house current occupational status: employed 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[employer] current occupational exposures/hazards: Yes pets and animals: Yes pets and animals: cat(s) and dog(s) history of recent travel: No sexually active: Yes Smoking Status: Never smoker alcohol intake: current details: socially substance use type: does not use diet: gluten free caffeine: Yes deanna/yazidism: Taoism seatbelt use: always do you feel safe at home: Yes 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 MARYOSL ROS ED ROS Narrative Constitutional: Denies any fevers, chills, headaches Eyes: Denies double vision blurry vision changes vision Cardiovascular: Denies chest pain Respiratory: Denies shortness of breath Abdomen: Complains of abdominal pain as noted above Neurological: Denies numbness, weakness, tingling Musculoskeletal: Denies back pain Skin: Denies any rashes or lesions EXAM Physical Exam Narrative Exam Narrative: General: Patient was lying in bed rest comfortably did not appear to be acute distress Head: Atraumatic, normocephalic Eyes: PERRL bilaterally, EOMI bilaterally, no conjunctival injection noted Neck: Soft, supple, trachea midline Cardiovascular: Patient tachycardic with a regular rhythm Respiratory: Clear to auscultation bilaterally Abdomen: Soft, nondistended, diffuse tenderness to palpation Extremities: +5/5 strength noted in the bilateral upper and lower extremities Neurological: Patient following commands knew that she was at [facility] year is 2024 Skin: Warm, dry, intact no rashes or lesions noted Const Vital Signs: 09/01/25 20:21 09/01/25 21:20 09/01/25 21:23 Temperature 96.9 F L 98 F 98.2 F Temperature Source Temporal Oral Oral Pulse Rate 119 H 86 83 Respiratory Rate 22 H 16 19 H Blood Pressure 161/95 H 124/90 H 131/84 H Blood Pressure Mean 117 101 99 Pulse Ox 100 99 1 Oxygen Delivery Method Room Air Room Air 09/01/25 22:00 09/01/25 23:00 09/02/25 00:00 Temperature 97.8 F 99.1 F Temperature Source Oral Oral Pulse Rate 88 90 85 Respiratory Rate 17 18 16 Blood Pressure 118/80 115/67 117/57 L Blood Pressure Mean 92 83 77 Pulse Ox 100 98 97 Oxygen Delivery Method Room Air Room Air Room Air MDM MDM MDM Narrative Medical decision making narrative: Patient is a 29-year-old female who presents to the emergency department the chief complaint of abdominal pain. On the differential diagnosis includes but not limited to ectopic , endometritis, appendicitis, cholecystitis, pancreatitis. Once the workup is obtained and reviewed she will be reevaluated. Patient be given IV fluids Zofran morphine. Patient CBC reviewed and showed a leukocytosis of 12,000, hemoglobin 12.1, platecount 255. Patient sodium is 136, potassium low at 3.6, creatinine 0.61. Patient lactic acid normal at less than 1, ASTand ALT were 20 and 17 respectively. Patient's hCG quant was 390 with positive urinalysis reviewed showed no evidence of infection. Patient's transvaginal ultrasound wasreviewed and showed no intrauterine gestational sac or saclike structure to confirm an IUP. There is probable arcuate versus septate uterine morphology. There is a large heterogeneous partially solid and cystic right adnexal mass which appears to be separate from the ovary findings suspicious for ectopic . Paged ELECTRIC GOLF CART REPAIRER physician Dr. Logan who is currently in a ELECTRIC GOLF CART REPAIRER emergency andshe states that shewill call back when she is done with the case. This will besigned out to overnight provider to discuss with her and follow-up on ultimate disposition see note for addendum details Lab Data Labs: Laboratory Results - last 24 hr 09/01/25 09/01/25 09/01/25 20:37 20:55 21:46 WBC 12.2 H RBC 3.99 L Hgb 12.1 Hct 35.2 L MCV 88.2 MCH 30.3 MCHC 34.4 RDW Std Deviation 40.0 RDW Coeff of Jayson 12.4 Plt Count 255 MPV 10.6 Immature Gran % (Auto) 0.400 Neut % (Auto) 80.0 H Lymph % (Auto) 13.6 L [place] % (Auto) 4.7 Eos % (Auto) 1.1 Baso % (Auto) 0.2 Absolute Neuts (auto) 9.7 H Absolute Lymphs (auto) 1.66 Nucleated RBC % 0 Sodium 136 Potassium 3.6 Chloride 100 Carbon Dioxide 22.4 Anion Gap 14 BUN 11 Creatinine 0.61 L Estim Creat Clear Calc 115.39 Est GFR (MDRD) Non-Af 122 BUN/Creatinine Ratio 18.1 Glucose 124 H Lactic Acid < 1.0 Calcium 9.4 Total Bilirubin 0.48 AST 20 ALT 17 Alkaline Phosphatase 59 Total Protein 7.9 Albumin 5.0 Globulin 2.9 Albumin/Globulin Ratio 1.7 HCG, Quant 390 H Serum , Qual POSITIVE Urine Color Straw Urine Clarity Clear Urine pH 6.0 Ur Specific Harrah 1.010 Urine Protein 15 H Urine Glucose (UA) Normal Urine Ketones 15 H Urine Occult Blood 50 H Urine Nitrite Negative Urine Bilirubin Negative Urine Urobilinogen Normal Ur Leukocyte Esterase Negative Urine RBC 0-5 SEEN Urine WBC 0-5 SEEN Ur Squamous Epith Cells 0-5 SEEN Ur Transition Epith Cell 0-5 SEEN Urine Bacteria 0 SEEN Urine Mucus 0 SEEN Radiography Diagnostic Testing: Clinical Impression(s) from Imaging Studies Obstetrics Ultrasound 09/01/25 20:25 IMPRESSION: No intrauterine gestational sac or sac-like structure to confirm an IUP. There is probable arcuate versus septate uterine morphology. There is a large heterogeneous partially solid and cystic right adnexal mass, which appears separate from the ovary. Findings are suspicious for ectopic , given the absence of an IUP. Recommend clinical correlation with serum beta HCG level, and Knockout Machine Operator consultation. Reading Location: [facility] Discharge Plan Triage Chief Complaint: Vag Bld, Preg ED Provider: Dilshad Jones Dx/Rx/DC Orders Clinical Impression: Abdominal pain, History of anemia Prescriptions: No Action ferrous sulfate [Feosol] 325 mg (65 mg iron) tablet 150 mg PO DAILY Alive Daily Support 180 mcg-25 mg- 25 mg tablet,chewable 1 tab PO BID vckraps-sajblbxzhmsoix-zaoplc 6-5-2 % cream topical letrozole 2.5 mg tablet 5 mg PO DAILY Qty: 10 0RF Rx Instructions: Take cycle days 3-7 Primary Care Provider: Dania Whitfield Referrals: Dania Whitfield DO [Primary Care Provider, Internal Medicine] Print Language: Tunisian What to do if you have Problems For any increased pain, shortness of breath, bleeding, nausea or vomiting, chestpain, or any unexpected problems, contact your Primary Care Provider. Call [facility] ([phone]) or report tothe closest Emergency Room. Call 911 if necessary. 09/02/25107 Cosigner Signature (if applicable): CC: Dr. Dania Whitfield DO ~ Signed ADDENDUM by Av Barajas DO on 09/02/25 at 0158 The patient was signed out to me while awaiting evaluation by ELECTRIC GOLF CART REPAIRER. The case was discussed with ELECTRIC GOLF CART REPAIRER Dr. Logan. She reviewed the patient's labs and ultrasound and feels that the patient mostlikely has a ruptured ectopic which is constituting the low hCG and large size on the image. She believes the patient will need surgical resolution of this. Therefore the patient will be admitted to her service for potential surgery regarding a ruptured ectopic . The patient has remained hemodynamically stable while in the ER. 10/11/25 0158 Cosigner Signature (if applicable): cc: Dr. Dania Whitfield, ~* Signed [facility]10-10-2025 Radiology Diagnostic study note [facility] Imaging Services [address] [place] [id number] Transvaginal w/Preg US MR#: [id number] Acct: [id number] Name: MECCA FRANKLIN Rep #: [id number] : 1995 F 29 From: Braden Matute MD PCP: Dr. Dania Whitfield DO Status: R EG ER Study:Transvaginal w/Preg US Date of Exam: 09/01/25 Exam# [id number] Ordering Dr: Teodoro Jones DO PROCEDURE: TRANSVAGINAL W/PREG US 09/01/2025 REASON FOR EXAM: VAG BLEEDING FIRST TRIMESTER TECHNIQUE: Procedure Code: USTVAGP Modality: US Procedure: TRANSVAGINAL W/PREG US COMPARISON: None available. FINDINGS Anteverted uterus appears normal in size and smooth in contour, measuring 9.2 x 5.4 x 4.3 cm. No discrete uterine myoma is seen. Arcuate versus septate uterine morphology. Endometrial stripe complex appears within normal limits measuring up to 1.6 cm. No intrauterine gestational sac or sac-like structure is seen to confirm an IUP. The cervix is closed. Left ovary has a normal sonographic appearance. The right ovary appears normal,however there is a large complex partially cystic and solid echogenic mass in the right adnexal region, which measures approximately up to 9.6x 5.3 x 2.5 cm. Small amount of nonspecific free fluid in the cul-de-sac. US/Transvaginal w/Preg US IMPRESSION: No intrauterine gestational sac or sac-like structure to confirm an IUP. There is probable arcuate versus septate uterine morphology. There is a large heterogeneous partially solid and cystic right adnexal mass, which appears separate from the ovary. Findings are suspicious for ectopic , given the absence of an IUP. Recommend clinical correlation with serum beta HCG level, and Knockout Machine Operator consultation. Reading Location: [id number] CC: Dr. Dania Whitfield DO; Dr. Dilshad Jones DO ~ Card Assembler: Signed [facility]10-10-2025 Discharge summary Author Dilshad Jones [facility] Note Date/Time September 02, 2025 1 :58am [facility] Medical Records Department [address] [place] [address] Emergency Department Summary 09/01/25 MR#: [id number] Acct: [id number] Name: MECCA FRANKLIN Rep #:[id number] : 1995 29 From: Dilshad Jones DO PCP: Dr. Dania Whitfield DO Status:R EG ER Location: ED HPI HPI - Female History of Present Illness Chief Complaint: Vag Bld, Preg Narrative Narrative: Patient is a 29-year-old female with past medical history of anemia who presentsto the emergency department the chief complaint of abdominal pain. Patient states that for the last week she has been dealing with a miscarriage which she states that her last hCG quant was around 605 she is following with ELECTRIC GOLF CART REPAIRER aboutthis. She states that the pain had been progressively worsening prompting her to come here for further evaluation management she states that she originally had worsening abdominal pain in the upper portion of her abdomen and now it is in the lower portion. Patient denies any sick contacts. [facility] Medical History Anemia Home Medications ?Medication ?Instructions ?Recorded ?Last Taken ?Type ferrous sulfate 325 mg (65 mg 150 mg PO DAILY 10/23/23 Unknown History iron) tablet (Feosol) dapsone 6 %-spironolactone 5 applic topical 11/01/24 U nknown History %-niacinamide 2 % topical cream mv-mn no.97-folic 180 mcg-dha 25 1 tab PO BID 11/01/24 Unknown History mg-herb no.293 25 mg chewable tablet (Alive Daily Support ) letrozole 2.5 mg tablet 5 mg (2 x 2.5 mg) PO DAILY # 10 tabs 02/20/25 Unknown Rx Allergy/AdvReac Type Severity Reaction Status Date / Time amoxicillin (From Augmentin) Allergy Mild Hives Verified 09/01/25 20:21 clavulanic acid (From Allergy Mild Hives Verified 09/01/25 20:21 Augmentin) Family History Grandmother Skin cancer Grandfather Skin cancer CVA (cerebral vascular accident) Father CVA (cerebral vascular accident) Hypertension Brother Hypertension Social History adopted: No household members: spouse housing: house current occupational status: employed 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[employer] current occupational exposures/hazards: Yes pets and animals: Yes pets and animals: cat(s) and dog(s) history of recent travel: No sexually active: Yes Smoking Status: Never smoker alcohol intake: current details: socially substance use type: does not use diet: gluten free caffeine: Yes deanna/yazidism: Taoism seatbelt use: always do you feel safe at home: Yes 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 ROS ED ROS Narrative Constitutional: Denies any fevers, chills, headaches Eyes: Denies double vision blurry vision changes vision Cardiovascular: Denies chest pain Respiratory: Denies shortness of breath Abdomen: Complains of abdominal pain as noted above Neurological: Denies numbness, weakness, tingling Musculoskeletal: Denies back pain Skin: Denies any rashes or lesions EXAM Physical Exam Narrative Exam Narrative: General: Patient was lying in bed rest comfortably did not appear to be acute distress Head: Atraumatic, normocephalic Eyes: PERRL bilaterally, EOMI bilaterally, no conjunctival injection noted Neck: Soft, supple, trachea midline Cardiovascular: Patient tachycardic with a regular rhythm Respiratory: Clear to auscultation bilaterally Abdomen: Soft, nondistended, diffuse tenderness to palpation Extremities: +5/5 strength noted in the bilateral upper and lower extremities Neurological: Patient following commands knew that she was at [facility] year is 2024 Skin: Warm, dry, intact no rashes or lesions noted Const Vital Signs: 09/01/25 20:21 09/01/25 21:20 09/01/25 21:23 Temperature 96.9 F L 98 F 98.2 F Temperature Source Temporal Oral Oral Pulse Rate 119 H 86 83 Respiratory Rate 22 H 16 19 H Blood Pressure 161/95 H 124/90 H 131/84 H Blood Pressure Mean 117 101 99 Pulse Ox 100 99 1 Oxygen Delivery Method Room Air Room Air 09/01/25 22:00 09/01/25 23:00 09/02/25 00:00 Temperature 97.8 F 99.1 F Temperature Source Oral Oral Pulse Rate 88 90 85 Respiratory Rate 17 18 16 Blood Pressure 118/80 115/67 117/57 L Blood Pressure Mean 92 83 77 Pulse Ox 100 98 97 Oxygen Delivery Method Room Air Room Air Room Air MDM MDM MDM Narrative Medical decision making narrative: Patient is a 29-year-old female who presents to the emergency department the chief complaint of abdominal pain. On the differential diagnosis includes but not limited to ectopic , endometritis, appendicitis, cholecystitis, pancreatitis. Once the workup is obtained and reviewed she will be reevaluated. Patient be given IV fluids Zofran morphine. Patient CBC reviewed and showed a leukocytosis of 12,000, hemoglobin 12.1, platecount 255. Patient sodium is 136, potassium low at 3.6, creatinine 0.61. Patient lactic acid normal at less than 1, AST and ALT were 20 and 17 respectively. Patient's hCG quant was 390 with positive urinalysis reviewed showed no evidence of infection. Patient's transvaginal ultrasound wasreviewed and showed no intrauterine gestational sac or saclike structure to confirm an IUP. There is probable arcuate versus septate uterine morphology. There is a large heterogeneous partially solid and cystic right adnexal mass which appears to be separate from the ovary findings suspicious for ectopic . Paged ELECTRIC GOLF CART REPAIRER physician Dr. Logan who is currently in a ELECTRIC GOLF CART REPAIRER emergency andshe states that she will call back when she is done with the case. This will besigned out to overnight provider to discuss with her and follow-up on ultimate disposition see note for addendum details Lab Data Labs: Laboratory Results - last 24 hr 09/01/25 09/01/25 09/01/25 20:37 20:55 21:46 WBC 12.2 H RBC 3.99 L Hgb 12.1 Hct 35.2 L MCV 88.2 MCH 30.3 MCHC 34.4 RDW Std Deviation 40.0 RDW Coeff of Jayson 12.4 Plt Count 255 MPV 10.6 Immature Gran % (Auto) 0.400 Neut % (Auto) 80.0 H Lymph % (Auto) 13.6 L [place] % (Auto) 4.7 Eos % (Auto) 1.1 Baso % (Auto) 0.2 Absolute Neuts (auto) 9.7 H Absolute Lymphs (auto) 1.66 Nucleated RBC % 0 Sodium 136 Potassium 3.6 Chloride 100 Carbon Dioxide 22.4 Anion Gap 14 BUN 11 Creatinine 0.61 L Estim Creat Clear Calc 115.39 Est GFR (MDRD) Non-Af 122 BUN/Creatinine Ratio 18.1 Glucose 124 H Lactic Acid < 1.0 Calcium 9.4 Total Bilirubin 0.48 AST 20 ALT 17 Alkaline Phosphatase 59 Total Protein 7.9 Albumin 5.0 Globulin 2.9 Albumin/Globulin Ratio 1.7 HCG, Quant 390 H Serum , Qual POSITIVE Urine Color Straw Urine Clarity Clear Urine pH 6.0 Ur Specific Harrah 1.010 Urine Protein 15 H Urine Glucose (UA) Normal Urine Ketones 15 H Urine Occult Blood 50 H Urine Nitrite Negative Urine Bilirubin Negative Urine Urobilinogen Normal Ur Leukocyte Esterase Negative Urine RBC 0-5 SEEN Urine WBC 0-5 SEEN Ur Squamous Epith Cells 0-5 SEEN Ur Transition Epith Cell 0-5 SEEN Urine Bacteria 0 SEEN Urine Mucus 0 SEEN Radiography Diagnostic Testing: Clinical Impression(s) from Imaging Studies Obstetrics Ultrasound 09/01/25 20:25 IMPRESSION: No intrauterine gestational sac or sac-like structure to confirm an IUP. There is probable arcuate versus septate uterine morphology. There is a large heterogeneous partially solid and cystic right adnexal mass, which appears separate from the ovary. Findings are suspicious for ectopic , given the absence of an IUP. Recommend clinical correlation with serum beta HCG level, and Knockout Machine Operator consultation. Reading Location: [id number] Discharge Plan Triage Chief Complaint: Vag Bld, Preg ED Provider: Dilshad Jones Dx/Rx/DC Orders Clinical Impression: Abdominal pain, History of anemia Prescriptions: No Action ferrous sulfate [Feosol] 325 mg (65 mg iron) tablet 150 mg PO DAILY Alive Daily Support 180 mcg-25 mg- 25 mg tablet,chewable 1 tab PO BID haunxvn-whnaeytizukzuq-gvpyjg 6-5-2 % cream topical letrozole 2.5 mg tablet 5 mg PO DAILY Qty: 10 0RF Rx Instructions: Take cycle days 3-7 Primary Care Provider: Dania Whitfield Referrals: Dania Whitfield DO [Primary Care Provider, Internal Medicine] Print Language: Tunisian What to do if you have Problems For any increased pain, shortness of breath, bleeding, nausea or vomiting, chestpain, or any unexpected problems, contact your Primary Care Provider. Call [facility] ([phone]) or report to the closest Emergency Room. Call 911 if necessary. 09/02/25 010 <Electronically signed by Dilshad Jones DO> Cosigner Signature (if applicable): CC: Dr. Dania Whitfield DO ~ Signed ADDENDUM by Av Barajas DO on 09/02/25 at 0158 The patient was signed out to me while awaiting evaluation by ELECTRIC GOLF CART REPAIRER. The case was discussed with ELECTRIC GOLF CART REPAIRER Dr. Logan. She reviewed the patient's labs and ultrasound and feels that the patient most likely has a ruptured ectopic which is constituting the low hCG and large size on the image. She believes the patient will need surgical resolution of this. Therefore the patient will be admitted to her service for potential surgery regarding a ruptured ectopic . The patient has remained hemodynamically stable while in the ER. 09/02/25157<Electronically signed by Av Barajas DO> Cosigner Signature (if applicable): cc: Dr. Dania Whitfield DO ~* Signed [facility] Work Phone: 1(743) 871-406012-10-2024 Evaluation note* Diagnosis Onset Date Resolution Status Admit Date Infertility, anovulation acute November 01, 2024 10:13am [facility] Work Phone: 1(720) 240-181612-01-2023 NotePap Smear Specimen AdequacyDecember 2022 10:54amComment.Satisfactory for evaluation. No endocervical component is identified.[facility] A#[id number] Medical Specialty [facility]Com[facility] on above:Satisfactory for evaluation. No endocervical component is identified. 10-23-2023 NotePap Smear Specimen AdequacyDecember 2022 10:54amComment. Satisfactory for evaluation. No endocervical component is identified.[facility] A#[id number] Medical Specialty Hospital [facility] OhioComment on above:Satisfactory for evaluation. No endocervical component is identified.10-23-2023 NotePap Smear Specimen AdequacyDecember 2022 10:54amComment.Satisfactory for evaluation. No endocervical component is identified.[facility] A#[id number] Medical Specialty Hospital - Southeast OhioComment on above:Satisfactory for evaluation. No endocervical component is identified.10-23-2023 NotePap Smear Specimen AdequacyDecember 2022 10:54amComment.Satisfactory for evaluation. No endocervical component is identified.[facility] A#[id number] Medical Specialty Hospital - Southeast OhioComment on above:Satisfactory for evaluation. No endocervical component is identified. 09-20-2022 History of Present illness NarrativePatient presents for evaluation of tick bite. Patient successfully removed a tick in tact 3 days ago and reports persistent small, erythematous, blanchable lesion in the area. No constitutional signsor symptoms. 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 Reason for Visit Encounter for well w isidro exam with routine gynecological exam Encounter for routine gynecological examination [facility] Work Phone: Consult note Author Ralf [facility] Note Date/Time September 02, 2025 2 :37am [facility] Medical Records Department [address] [place] [id number] Pre-Anesthesia Evaluation 09/02/25 0233 MR#: [id number] Acct: [id number] Name: MECCA FRANKLIN Rep #:[id number] : 1995 29 From: Ralf Orellana MD PCP: Dr. Dania Whitfield, DO Status:R EG [facility] Y Race: C Location: [place] [address] ASA Classification* ASA Classification ASA Classification: 2 and E Assessment & Plan Anesthesia* Anesthesia Assessment Anesthesia Assessment: Discussed sedation and/or anesthesia options, risks, benefits, and alternatives with patient/parents/legal guardian/POA. Questions invited. The patient/parents/legal guardian/POA seems to understand and agrees to proceedwith anesthesia plan. Reviewed the physical assessment, medical history, allergy history and patient home medications list prior to surgery/procedure/anesthetic and documented any changes. Performed airway and anesthesia risk assessments. Anesthesia Type Anesthesia Type: General History Source History Obtained from:: Patient and Chart Anesthesia Focused Assessment* Temperature: 99.0 F Pulse Rate: 106 Blood Pressure: 136/78 Respiratory Rate: 15 Pulse Ox: 97 Oxygen Delivery Method: Room Air Airway Assessment Mouth opens: >3 cm Mallampati Score: II Teeth Condition: Intact Neck Range of motion (ROM): Full ROM Labs Anesthesia Preop lab: CBC WBC, (4.4-11.0) 12.2 K/mm3 H 09/01/25, 20:37 RBC, (4.2-5.4) 3.99 M/mm3 L 09/01/25, 20:37 Hgb, (12.0-15.0) 12.1 g/dL 09/01/25, 20:37 Hct, (37-47) 35.2 % L 09/01/25, 20:37 Plt Count, (150-450) 255 K/mm3 09/01/25, 20:37 CHEMISTRY Potassium, (3.3-5.1) 3.6 mmol/L 09/01/25, 20:37 Sodium, (133-145) 136 mmol/L 09/01/25, 20:37 Phosphorus, (2.7-4.5) 3.5 mg/dL 08/14/25, 08:15 BUN, (4-19) 11 mg/dL 09/01/25, 20:37 Creatinine, (0.70-1.20) 0.61 mg/dL L 09/01/25, 20:37 Glucose, (70-99) 124 mg/dL H 09/01/25, 20:37 TSH, (0.300-4.200) 2.290 uIU/mL 04/06/25, 13:56 COAG HCG, Quant, (<9 non-preg) 390 mIU/mL H 09/01/25, 20:3 7 Pre-Assessment Diagnosis/Proposed Procedure Planned Operative Procedure(s): Diagnostic laparoscopy Anesthesia History Anesthesia History - leasing representative: Anesthesia History - leasing representative Hx Hospitalization Any Problems With Anesthesia No 09/02/25 02:22 Cholinesterase deficiency No 09/02/25 02:22 You/Your Family Experience No 09/02/25 02:22 fever (hyperthermia) with Relationship Recent Exposure to Contagious No 09/02/25 02:22 Disease Does patient have nerve No 09/02/25 02:22 stimulator Patient instructed to have device shut off --Does patient have Pacemaker or ICD? When Was Last Pacemaker Check QUESTION #4 FULL TEXT: You/Your Family Experience fever (hyperthermia) with Anesthesia Last Oral Intake Last Oral intake: Last Oral Intake NPO since Meds taken in AM with sips of water? Meds patient instructed to take am of surgery Any additional information?: Yes NPO since: 19:30 PONV PONV - leasing representative: PONV - leasing representative Female HX of Motion Sickness HX of N/V After Surgery Non-Smoker Duration of Surgery greater than 60 minutes Number of Risk Factors PONV Score Height & Weight Height & Weight: Anesthesia: Height & Weight Height 5 ft 4 in 09/02/25 02:22 Weight: 63.049 kg 09/02/25 02:22 Body Mass Index (BMI) 23.8 09/02/25 02:22 Respiratory Assessment Respiratory Assessment - leasing representative: Respiratory Tract Infection Hx - leasing representative Hx Respiratory Tract Infection No 09/02/25 02:22 STOP Sleep Apnea STOP Sleep Apnea - leasing representative: STOP Sleep Apnea - leasing representative Hx Hypertension No 09/02/25 02:22 Hx Sleep Apnea No 09/02/25 02:22 CPAP BIPAP Do you snore loudly (louder No 09/02/25 02:22 than talking or can be heard Do you often feel tired/ No 09/02/25 02:22 fatigued/ sleepy during daytime? Has anyone observed you stop No 09/02/25 02:22 breathing during sleep? STOP Results Negative 09/02/25 02:22 QUESTION #5 FULL TEXT : Do you snore loudly (louder than talking or can be heard through closed doors)? 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 Specify any problems Hx of Preganancy in last 3 Months Nurse Filling Out Transfusion & Questions: Date: Time: Patient unable to answer at this time (ie. confused, unrespo /Reproduction History /Reproductive History - leasing representative: /Reproductive Hx- leasing representative Hx Now Yes 09/01/25 20:27 Gestational Age (in weeks): EDC: Hx 0 09/01/25 20:27 Hx Para Hx Section SAB No 09/01/25 20:21 PFSH Medical History Anemia Home Medications ?Medication ?Instructions ?Recorded ?Last Taken ?Type ferrous sulfate 325 mg (65 mg 150 mg PO DAILY 10/23/23 Unknown History iron) tablet (Feosol) dapsone 6 %-spironolactone 5 applic topical 11/01/24 U nknown History %-niacinamide 2 % topical cream mv-mn no.97-folic 180 mcg-dha 25 1 tab PO BID 11/01/24 Unknown History mg-herb no.293 25 mg chewable tablet (Alive Daily Support ) letrozole 2.5 mg tablet 5 mg (2 x 2.5 mg) PO DAILY # 10 tabs 02/20/25 Unknown Rx Allergy/AdvReac Type Severity Reaction Status Date / Time amoxicillin (From Augmentin) Allergy Mild Hives Verified 09/01/25 20:21 clavulanic acid (From Allergy Mild Hives Verified 09/01/25 20:21 Augmentin) Family History Grandmother Skin cancer Grandfather Skin cancer CVA (cerebral vascular accident) Father CVA (cerebral vascular accident) Hypertension Brother Hypertension Social History adopted: No household members: spouse housing: house current occupational status: employed 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 09/02/25236 <Electronically signed by Ralf koch MD> Date _ Ralf Orellana MD Cosigner Signature: Date CC: ~ Signed [facility] Work Phone: Consult note Author Ralf [facility] Note Date/Time September 02, 2025 4 :17am [facility] Medical Records Department [address] [place] [address] Anesthesia Postop Eval I 09/02/25412 MR#: [id number] Acct: [id number] Name: MECCA FRANKLIN Rep #:[id number] : 1995 29 From: Ralf Orellana MD PCP: Dr. Dania Whitfield, DO Status:R [facility] Y Race: C Location: [place] [address] Anesthesia: Postop Eval I Current Vital Signs Temperature: 99.8 F Pulse Rate: 89 Blood Pressure: 129/89 Respiratory Rate: 16 Pulse Ox: 94 Oxygen Delivery Method: Room Air Assessment Airway patent: Yes Spontaneous unlabored respirations: Yes Mental status: Awake and Calm nausea: Yes Vomiting: No Anesthesia Complication: No Fluid Hydration Crystalloid volume administer (ml): 600 Total IV fluid infused: 600 Progress Note Anesthesia document: Postop Eval 1 completed: Yes 09/02/25416 <Electronically signed by Ralf koch MD> Date _ Ralf Orellana MD [facility] Signature: Date CC: ~ Signed [facility] Work Phone: Consult note Author [facility] Note Date/Time September 02, 2025 1 :10pm [facility] Medical Records Department [address] [place] [address] Anesthesia Postop Eval II 09/02/256 MR#: [id number] Acct: [id number] Name: MECCA FRANKLIN Rep #:[id number] : 1995 29 From: Ralf Orellana MD PCP: Dr. Dania Whitfield, DO Status:R [facility] Y Race: C Location: [place] [address] Anesthesia Postop Eval I Sum Postop Eval Completion status Anesthesia document: Postop Eval 1 completed: Yes Anesthesia Postop Eval I Summary Anesthesia Postop Eval I Summary: Anesthesia Postop Eval I: Assessment Summary Airway patent Yes 09/02/25 04:17 Spontaneous unlabored Yes 09/02/25 04:17 respirations Mental status Awake,Calm 09/02/25 04:17 nausea Yes 09/02/25 04:17 Vomiting No 09/02/25 04:17 Anesthesia Postop Eval I: Fluid Summary Crystalloid volume administer 600 09/02/25 04:17 (ml) Colloids volume administered ( ml) Blood Product volume administered (ml) Total IV fluid infused 600 09/02/25 04:17 Anesthesia Postop Eval I: Summary Notes Anesthesia Complication No 09/02/25 04:17 Anesthesia Complication Comment: Post-operative progress note Anesthesia: Postop Eval II Evaluation Mental status: Awake and Calm Pain Level: 3 nausea: No Vomiting: No Complications Anesthesia Complication: No 09/02/25 0436 <Electronically signed by Ralf koch MD> Date _ Ralf Orellana MD Cosigner Signature: Date CC: ~ Signed [facility] Work Phone: Discharge summary Author [facility]z Elena [facility] Note Date/Time September 02, 2025 2 :51am [facility] Medical Records Department [address] [place] [address] Instructions for Home/Discharge Instructions 09/02/25 0248 MR#: [id number] Acct: [id number] Name: RIGOBERTOMECCA CURRY Rep #:[id number] : 1995 29 From: Luz Elena Bush DO PCP: Dr. Dania Whitfield DO Status:R EG SDC Discharge Instructions DC O2, CPAP, BIPAP needs Home O2 Discharge instructions: No Dressing / Incision Discharge Activity: Return to Normal Activity, May Not Drive (for two weeks or while taking narcotic pain medications.), May Shower and May Take a Tub Bath (in7 days) May resume sexual activity in: 1 week Weight Bearing Status: Full weight bearing Dressing / Incision Call your doctor if you observe: Using more than 1 pad per hour, Shortness of breath, Chest pain and Uncontrolled pain Suture Line Care: Avoid Pulling/Pushing and Avoid Pinching/Bending Remove Dressing in: 1 week (if present) Cleanse incision/area with: Soap & Water and Keep Dressing Clean & Dry Follow Up Care Please Follow Up With: Luz Elena Bush DO When: Call to make an appointment with your doctor for a follow up incision check in 1-2 weeks. Test Results: Test results from this visit will be discussed in further detail at your follow- up appointment, if applicable. Discharge Plan Admission Primary Reason for Your Visit: laparoscopy to treat ectopic Attending Provider: Luz Elena Bush Primary Care Provider: Dania Whitfield Instructions Print Language: Tunisian Discharge Orders/Prescriptions Prescriptions: New ibuprofen 800 mg tablet 800 mg PO Q8H PRN (Reason: pain) Qty: 30 0RF oxycodone-acetaminophen [Percocet] 5-325 mg tablet 1 tab PO Q4H PRN (Reason: pain) 7 Days Qty: 10 0RF Continued ferrous sulfate [Feosol] 325 mg (65 mg iron) tablet 150 mg PO DAILY Alive Daily Support 180 mcg-25 mg- 25 mg tablet,chewable 1 tab PO BID Held ymuckbn-cchoopadykedtj-eubxko 6-5-2 % cream topical Hold Instructions: Resume on 09/08/25. Discontinued letrozole 2.5 mg tablet 5 mg PO DAILY Qty: 10 0RF Rx Instructions: Take cycle days 3-7 Referrals / Follow Up: Dania Whitfield DO [Primary Care Provider, Internal Medicine] Disposition Disposition (needs filled in before D/C Order can be placed): Home, Self Care 09/02/25 0251<Electronically signed by Luz Elena Bush DO>Luz Elena Bush DO CC: Dr. Dania Whitfield DO ~ Signed [facility] Work Phone: Evaluation noteNo assessment information available [facility] Work Phone: Evaluation note* Diagnosis Onset Date Resolution Status Encounter for well woman exa m with routine gynecological exam acute Encounter for routine gynecological examination noneactive [facility] Work Phone: Evaluation note* Diagnosis Onset Date Resolution Status Admit Date Ectopic acute September 02, 2025 2:05am Ectopic acute September 13, 2025 3:01pm [facility] Work Phone: History and physical note Author Luz Elena Perez [facility] Note Date/Time September 02, 2025 2 :37am [facility] Medical Records Department [address] [place] [address] 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 Dania Whitfield, DO Status:R [facility] Location: [place] [address] HPI - General HPI Narrative MECCA FRANKLIN, is a 29 y/o @ unknown gestational age who presents to [facility] ER with vaginal bleeding and a home positive test. She has been seeing anREI doctor and has tried IUI and clomid. This she states was spontaneous. She did have an HSG that was normal earlier this year . Ultrasound shows the following: FINDINGS Anteverted uterus appears normal in size and smooth in contour, measuring 9.2 x 5.4 x 4.3 cm. No discrete uterine myoma is seen. Arcuate versus septate uterine morphology. Endometrial stripe complex appears within normal limits measuring up to 1.6 cm. No intrauterine gestational sac or sac-like structure is seen to confirm an IUP. The cervix is closed. Left ovary has a normal sonographic appearance. The right ovary appears normal,however there is a large complex partially cystic and solid echogenic mass in the right adnexal region, which measures approximately up to 9.6 x 5.3 x 2.5 cm. Small amount of nonspecific free fluid in the cul-de-sac. US/Transvaginal w/Preg US IMPRESSION: No intrauterine gestational sac or sac-like structure to confirm an IUP. There is probable arcuate versus septate uterine morphology. There is a large heterogeneous partially solid and cystic right adnexal mass, which appears separate from the ovary. Findings are suspicious for ectopic , given the absence of an IUP. Recommend clinical correlation with serum beta HCG level, and Knockout Machine Operator consultation. [facility] Medical History Anemia Home Medications ?Medication ?Instructions ?Recorded ?Last Taken ?Type ferrous sulfate 325 mg (65 mg 150 mg PO DAILY 10/23/23 Unknown History iron) tablet (Feosol) dapsone 6 %-spironolactone 5 applic topical 11/01/24 U nknown History %-niacinamide 2 % topical cream mv-mn no.97-folic 180 mcg-dha 25 1 tab PO BID 11/01/24 Unknown History mg-herb no.293 25 mg chewable tablet (Alive Daily Support ) letrozole 2.5 mg tablet 5 mg (2 x 2.5 mg) PO DAILY # 10 tabs 02/20/25 Unknown Rx Allergy/AdvReac Type Severity Reaction Status Date / Time amoxicillin (From Augmentin) Allergy Mild Hives Verified 09/01/25 20:21 clavulanic acid (From Allergy Mild Hives Verified 09/01/25 20:21 Augmentin) Family History Grandmother Skin cancer Grandfather Skin cancer CVA (cerebral vascular accident) Father CVA (cerebral vascular accident) Hypertension Brother Hypertension Social History adopted: No household members: spouse housing: house current occupational status: employed 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 occupational exposures/hazards: Yes pets and animals: Yes pets and animals: cat(s) and dog(s) history of recent travel: No sexually active: Yes Smoking Status: Never smoker alcohol intake: current details: socially substance use type: does not use diet: gluten free caffeine: Yes deanna/yazidism: Taoism seatbelt use: always do you feel safe at home: Yes 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 Constitutional Constitutional: Denies change in weight, fatigue, fever(s), headache(s), poor appetite or weakness Eyes Eyes: Denies blurry vision, change in vision, seeing flashes or spots in vision ENT HEENT: Denies dizziness, headache(s), loss taste/smell or sore throat Cardiovascular Cardiovascular: Denies chest pain, dizziness, dyspnea, irregular heart rhythm, leg edema, palpitations or vomiting Respiratory/Chest Respiratory/Chest: Denies chest tightness, cough, dyspnea or breast pain Gastrointestinal Gastrointestinal: Denies anorexia, constipation, cramping, diarrhea, hemorrhoids, vomiting or weight changes Genitourinary Genitourinary: Denies dysuria, flank pain, genital lesions, urinary frequency orurinary urgency Musculoskeletal Musculoskeletal: Denies back pain, difficulty walking, joint pain, limited rangeof motion, muscle cramps or numbness Integumentary Integumentary: Denies lesions or unusual bruising Neurologic Neurologic: Denies abnormal movements, abnormal speech, dizziness, numbness, seizure-like activity or syncope Psychiatric Psychiatric: Denies anxiety, behavioral changes, change in appetite, change in libido, cognitive impairment, confusion, depression, difficulty concentrating, hallucinations or suicidal thoughts Endocrine Endocrinology: Denies excessive sweating, polydipsia or polyuria Hematologic/Lymphatic Hematologic/Lymphatic: Denies easy bleeding, easy bruising or lymphadenopathy Allergic/Immunologic Allergic/Immunologic: Denies itchy eyes, lip swelling, seasonal rhinorrhea, rhinitis, throat swelling, tongue swelling, eczemia, wheezing or asthma Vital Signs Vital Signs Vital Signs: 09/01/25 20:21 09/01/25 21:20 09/01/25 21:23 Temperature 96.9 F L 98 F 98.2 F Temperature Source Temporal Oral Oral Pulse Rate 119 H 86 83 Respiratory Rate 22 H 16 19 H Blood Pressure 161/95 H 124/90 H 131/84 H Blood Pressure Mean 117 101 99 Pulse Ox 100 99 1 Oxygen Delivery Method Room Air Room Air 09/01/25 22:00 09/01/25 23:00 09/02/25 00:00 Temperature 97.8 F 99.1 F Temperature Source Oral Oral Pulse Rate 88 90 85 Respiratory Rate 17 18 16 Blood Pressure 118/80 115/67 117/57 L Blood Pressure Mean 92 83 77 Pulse Ox 100 98 97 Oxygen Delivery Method Room Air Room Air Room Air 09/02/25 00:00 09/02/25 01:00 09/02/25 02:00 Temperature 99.3 F H 99.1 F Temperature Source Oral Oral Pulse Rate 87 85 106 H Respiratory Rate 18 18 15 Blood Pressure 112/58 L 112/58 L 136/78 H Blood Pressure Mean 76 76 97 Pulse Ox 97 98 97 Oxygen Delivery Method Room Air Room Air Room Air 09/02/25 02:27 Temperature 99.0 F Temperature Source Pulse Rate 106 H Respiratory Rate 15 Blood Pressure 136/78 H Blood Pressure Mean 97 Pulse Ox 97 Oxygen Delivery Method Weight Weight: 139 lb Body Mass Index (BMI) 23.8 Physical Exam Const alert, oriented x3, no apparent distress and healthy appearing General Appearance: cooperative; Negative for anxious HEENT normocephalic Face and Sinus: normal facial exam Eyes EOMs intact bilaterally and no scleral icterus General Eye: normal appearance of both eyes Neck full ROM and supple Lymph Lymphatic: no lymphadenopathy noted Resp normal respiratory effort Effort and Inspection: able to speak in complete sentences GI soft to palpation Palpation: soft Rectal Exam: other Other Details: lower abdomen diffusely tender bilaterally Extremity normal to inspection, full ROM and no clubbing, cyanosis or edema General Extremity: Negative for calf tenderness or edema Skin Lesions: no lesions Rashes: no rashes Psych mental status grossly normal Labs Labs Labs: Blood Type B POSITIVE Hct, (37-47) 35.2 % L Hgb, (12.0-15.0) 12.1 g/dL Obstetrics Ultrasound Syphilis Total Ab, (Nonreactive) Nonreactive VZV IgG Antibody, (Non Reactive) Reactive Rubella IgG Antibody, (Nonreactive) REAC Hep Bs Antigen, (Nonreactive) Nonreactive HIV 1&2 Antibody, (Nonreactive) Nonreactive Assessment & Plan (1) Ectopic : PLAN: After discussing the patient's diagnosis and treatment plan options, patient wishes to proceed with surgical management. I have discussed with the patient the risks, benefits, and alternatives of the procedure which include butare not limited to risks of anesthesia, bleeding, infection, possible damage to bowel, bladder, or surrounding vasculature which could lead to additional surgery to evaluate any complications. Patient agrees to procedure and wishes to proceed. ACOG/uptodate references given for additional information regardingprocedure. plan for laparoscopic evacuation of hemoperitoneum and treatment of ectopic . I have discussed with the patient that she will likely have a suction, irrigation of the clot and we will find where the ectopic is. If located in a fallopian tube then we will need to remove that tube. If located catarina ovary then we may need to remove that ovary. 09/02/25 0237 <Electronically signed by Luz Elena Bush DO> Cosigner Signature (if applicable): CC: Dr. Luz Elena Bush DO; Dr. Dania Whitfield DO~ Signed [facility] Work Phone: Progress note Author Luz Elena Perez [facility] Note Date/Time September 02, 2025 1 2:05pm [facility] Medical Records Department [address] [place] [address] Progress Note - OBGYN 09/02/25 1200 MR#: [id number] Acct: [id number] Name: MECCA FRANKLIN Rep #:[id number] : 1995 29 From: Luz Elena Bush DO PCP: Dr. Dania Whitfield, DO Status:R [facility] Location: [place] [id number] Subjective Subjective Patient is laying in bed sleeping but awakes easily. States that she had some rest overnight. States that she has some continued upper abdominal pain in the epigastric region that started before surgery but is very dull and overall feelsbetter. She denies chest pain shortness of breath or dizziness but does feel tired. We discussed that her hemoglobin dropped but not into a critical range and if she felt better today she could go home after lunch Objective Data Objective Data Vital Signs: Vital Signs Temp Pulse Resp BP Pulse Ox O2 Del Method O2 Flow Rate 98.7 F 86 16 130/70 H 98 Room Air 2 09/02/25 09:37 09/02/25 09:37 09/02/25 09:37 09/02/25 09:37 09/02/25 09:37 09/02/25 09:37 09/02/25 07:46 Oxygen Flow Rate (L/min) 2 Oxygen Delivery Method Room Air Weight: 144 lb 2.917 oz Body Mass Index (BMI) 24.7 Intake & Output: Intake and Output for Last 24 Hours 08/31/25 09/01/25 09/02/25 23:59 23:59 23:59 Intake Total 1000 / 1000 1250 / 1250 Output Total 1400 / 1400 Balance 1000 / 1000 -150 / -150 Lab / Micro Data 09/02/25 06:20 09/01/25 20:37 Labs: Laboratory Results - last 24 hr 09/01/25 20:37: WBC 12.2 H, RBC 3.99 L, Hgb 12.1, Hct 35.2 L, MCV 88.2, MCH 30.3, MCHC 34.4, RDW Std Deviation 40.0, RDW Coeff of Jayson 12.4, Plt Count 255, MPV 10.6, Immature Gran % (Auto) 0.400, Neut % (Auto) 80.0 H, Lymph % (Auto) 13.6 L, [place] % (Auto) 4.7, Eos % (Auto) 1.1, Baso % (Auto) 0.2, Absolute Neuts (auto) 9.7 H, Absolute Lymphs (auto) 1.66, Nucleated RBC % 0, Sodium 136, Potassium 3.6, Chloride 100, Carbon Dioxide 22.4, Anion Gap 14, BUN 11, Creatinine 0.61 L, Estim Creat Clear Calc 115.39, Est GFR (MDRD) Non-Af 122, BUN/Creatinine Ratio 18.1, Glucose 124 H, Calcium 9.4, Total Bilirubin 0.48, AST20, ALT 17, Alkaline Phosphatase 59, Total Protein 7.9, Albumin 5.0, Globulin 2.9, Albumin/Globulin Ratio 1.7, HCG, Quant 390 H, Serum , Qual POSITIVE 09/01/25 20:55: Urine Color Straw, Urine Clarity Clear, Urine pH 6.0, Ur Specific Harrah 1.010, Urine Protein 15 H, Urine Glucose (UA) Normal, Urine Ketones 15 H, Urine Occult Blood 50 H, Urine Nitrite Negative, Urine Bilirubin Negative, Urine Urobilinogen Normal, Ur Leukocyte Esterase Negative, Urine RBC 0-5 SEEN, Urine WBC 0-5 SEEN, Ur Squamous Epith Cells 0-5 SEEN, Ur Transition Epith Cell 0-5 SEEN, Urine Bacteria 0 SEEN, Urine Mucus 0 SEEN 09/01/25 21:46: Lactic Acid < 1.0 09/02/25 06:20: WBC 13.7 H, RBC 3.11 L, Hgb 9.6 L, Hct 28.5 L, MCV 91.6, MCH 30.9, MCHC 33.7, RDW Std Deviation 42.1, RDW Coeff of Jayson 12.5, Plt Count 176, MPV 10.7, Immature Gran % (Auto) 0.400, Neut % (Auto) 93.9 H, Lymph % (Auto) 4.3L, [place] % (Auto) 1.2, Eos % (Auto) 0.1, Baso % (Auto) 0.1, Absolute Neuts (auto)12.9 H, Absolute Lymphs (auto) 0.59 L, Nucleated RBC % 0 Radiography Diagnostic Testing: Radiology Impression Obstetrics Ultrasound 09/01/25 20:25 IMPRESSION: No intrauterine gestational sac or sac-like structure to confirm an IUP. There is probable arcuate versus septate uterine morphology. There is a large heterogeneous partially solid and cystic right adnexal mass, which appears separate from the ovary. Findings are suspicious for ectopic , given the absence of an IUP. Recommend clinical correlation with serum beta HCG level, and Knockout Machine Operator consultation. Reading Location: [facility] Constitutional Constitutional: Denies fever(s), headache(s) or poor appetite Cardiovascular Cardiovascular: Reports as per HPI; Denies abdominal bloating or chest pain Respiratory/Chest Respiratory/Chest: Denies chest tightness or dyspnea Gastrointestinal Gastrointestinal: Reports as per HPI; Denies belching or bloating Genitourinary Genitourinary: Denies abdominal discomfort, burning urination or flank pain Musculoskeletal Musculoskeletal: Reports none Integumentary Integumentary: Reports none Neurologic Neurologic: Reports none Psychiatric Psychiatric: Reports none Physical Exam Const alert, oriented x3 and no apparent distress HEENT normocephalic Neck full ROM Resp normal air movement GI soft to palpation, non-tender and non-distended; Negative for hepatosplenomegaly GI Narrative: Incisions are clean dry and intact Extremity normal to inspection Assessment & Plan (1) Ectopic : PLAN: Post op day #0 status post emergent laparoscopy and evacuation of 500 cc of hemoperitoneum repair of ruptured ectopic on the right fallopian tube with removal of the fallopian tube. Patient is doing well today ambulating and eating she would like to go home after lunch today. Prescriptions for Percocet and ibuprofen were sent to the [facility] pharmacy she will follow-up withme in 2 weeks 09/02/25 1205 <Electronically signed by Luz Elena Bush DO> Cosigner Signature (if applicable): CC: ~ Signed [facility] Work Phone: Reason for referral (narrative)No reason for referral information availableWCenterville Work Phone: Summary Purpose Family History No Family History Records FoundUnknown Family Member Name Dates Details No pertinent family history: Other(V49.89, Z78.9) Status:Active Healthy adult: Mother, Fathe r Status:Active Healthy child: Mother, Fathe r, Brother Status:Active Relationship Condition Age at Onset Recorded Date/T carlos grandmother Malignant neoplasm of skin Unknown grandfather Malignant neoplasm of skin Unknown Cerebrovascular accident (CVA) Unknown father Cerebrovascular accident (CVA) Unknown Hypertension Unknown brother Hypertension Unknown Advance Directives No Advanced Directives Records Found Advance Directive Response Recorded Date/ Time Do you have a Healthcare Power of Contracts Specialist? No September 02, 2025 5:30am Chief Complaint * Patient here to be seen for a tick bite in the right upper thigh area x Thursday, with redness and irritation. * Patient states she was walking around in a friends property and later that day noticed the tick. 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 Reason for Visit Encounter for well w isidro exam with routine gynecological exam Encounter for routine gynecological examination Chief Complaint Admit Date fertility consult November 01, 2024 10:13am INFERTILITY November 17, 2024 2:13pm Reason for Visit Admit Date Infertility, anovulation November 01, 2024 10:13am Chief Complaint Admit Date INFERTILITY November 17, 2024 2:13pm Chief Complaint Admit Date ECTOPIC September 02, 2025 2 :05am ECTOPIC September 02, 2025 2 :31am 2wk Ectopic FU September 13, 2025 3 :01pm Reason for Visit Admit Date Ectopic September 02, 2025 2 :05am Ectopic September 13, 2025 3 :01pm Additional Source Comments Goals (unrecognized section and content) Goals may be documented in a n alternate sectionGoals may be documented in an alternate sectionGoals may be documented in an alternate sectionGoals may be documented in an alternate sectionGoals may be documented in an alternate sectionGoals may be documented in an alternate sectionGoals may be documented in an alternate sectionGoals may be documented in an alternate sectionGoals may be documented in an alternate sectionGoals may be documented in an alternate sectionGoals may be documented in an alternate sectionGoals may be documented in an alternate sectionGoals may be documented in an alternate sectionGoals may be documented in an alternate sectionGoals may be documented in an alternate sectionGoals may be documented in an alternate section INFORMATION SOURCE (unrecogn ized section and content) DATE CREATED AUTHOR 08/02/2022 [facility] [facility] DATE CREATED AUTHOR AUTHOR'S ORGANIZ ATION 09/23/2022 [facility] DATE CREATED AUTHOR AUTHOR'S ORGANIZ ATION 09/23/2022 [employer] DATE CREATED AUTHOR AUTHOR'S ORGANIZ ATION 09/30/2025 [facility] Care Teams (unrecognized sec tion and content) Team Status: Inactive Member Role Status Dates Dr. Sukh Santiago MD Attending Provider Active Team Status: Active Member Role Status Dates Dr. Sukh Santiago MD Attending Provider Active Team Status: Inactive Member Role Status Dates Ravinder FINCH, PA Attending Provider Active Team Status: Inactive Member Role Status Dates Dr. Sukh Santiago MD Attending Provider, Referring Pr ovider Active Team Status: Inactive Member Role Status Dates Leisa Hampton CNM Attending Provider Active Team Status: Inactive Member Role Status Dates Leisa Hampton CNM Attending Provider, Referring Pro vider Active Team Status: Active Member Role Status Dates Dr. Dania Whitfield DO Primary Care Provider Active Team Status: Inactive Member Role Status Dates Riya Morgan PUMP SERVICER HELPER, PUMP SERVICER HELPER-C Attending Provider Active Start: November 01, 2024 End: November 01, 2024 Team Status: Inactive Member Role Status Dates Riya Morgan PUMP SERVICER HELPER, PUMP SERVICER HELPER-C Attending Provider Active Start: November 01, 2024 End: November 01, 2024 Riya Morgan PUMP SERVICER HELPER, PUMP SERVICER HELPER-C Referring Provider Active Start: November 01, 2024 End: November 01, 2024 Team Status: Inactive Member Role Status Dates Dr. Sukh Santiago MD Primary Care Provider Active Start: November 10, 2024 End: November 22, 2024 Dr. Sukh Santiago MD Attending Provider Active Start: November 10, 2024 End: November 22, 2024 Dr. Sukh Santiago MD Referring Provider Active Start: November 10, 2024 End: November 22, 2024 Team Status: Inactive Member Role Status Dates Dr. Dania Whitfield DO Primary Care Provider Active Start: November 10, 2024 End: November 10, 2024 Riya Morgan PUMP SERVICER HELPER, PUMP SERVICER HELPER-C Attending Provider Active Start: November 10, 2024 End: November 10, 2024 Riya Morgan PUMP SERVICER HELPER, PUMP SERVICER HELPER-C Referring Provider Active Start: November 10, 2024 End: November 10, 2024 Team Status: Inactive Member Role Status Dates Riya Morgan PUMP SERVICER HELPER, PUMP SERVICER HELPER-C Attending Provider Active Start: November 17, 2024 End: November 17, 2024 Riya Morgan PUMP SERVICER HELPER, PUMP SERVICER HELPER-C Referring Provider Active Start: November 17, 2024 End: November 17, 2024 Dr. Dania Whitfield DO Primary Care Provider Active Start: November 17, 2024 End: November 17, 2024 Team Status: Inactive Member Role Status Dates Dr. Dania Whitfield DO Primary Care Provider Active Start: January 09, 2025 End: January 20, 2025 Sukh PA MD Attending Provider Active S tart: January 09, 2025 End: January 20, 2025 Team Status: Inactive Member Role Status Dates Dr. Dania Whitfield DO Primary Care Provider Active Start: January 16, 2025 End: January 20, 2025 Sukh PA MD Attending Provider Active S tart: January 16, 2025 End: January 20, 2025 Sukh PA MD Referring Provider Active S tart: January 16, 2025 End: January 20, 2025 Team Status: Inactive Member Role Status Dates Dr. Dania Whitfield DO Primary Care Provider Active Start: January 17, 2025 End: January 17, 2025 Riya Morgan PUMP SERVICER HELPER, PUMP SERVICER HELPER-C Attending Provider Active Start: January 17, 2025 End: January 17, 2025 Riya Morgan PUMP SERVICER HELPER, PUMP SERVICER HELPER-C Referring Provider Active Start: January 17, 2025 End: January 17, 2025 Team Status: Inactive Member Role Status Dates Dr. Dania Whitfield DO Primary Care Provider Active Start: February 13, 2025 End: February 13, 2025 Riya Morgan PUMP SERVICER HELPER, PUMP SERVICER HELPER-C Attending Provider Active Start: February 13, 2025 End: February 13, 2025 Riya Morgan PUMP SERVICER HELPER, PUMP SERVICER HELPER-C Referring Provider Active Start: February 13, 2025 End: February 13, 2025 Team Status: Inactive Member Role Status Dates Dr. Dania Whitfield DO Primary Care Provider Active Start: March 10, 2025 End: March 10, 2025 Riya Morgan PUMP SERVICER HELPER, PUMP SERVICER HELPER-C Attending Provider Active Start: March 10, 2025 End: March 10, 2025 Riya Morgan PUMP SERVICER HELPER, PUMP SERVICER HELPER-C Referring Provider Active Start: March 10, 2025 End: March 10, 2025 Team Status: Inactive Member Role Status Dates Dr. Dania Oberhauser , DO Primary Care Provider Active Start: April 06, 2025 End: April 06, 2025 Dr. Ashleigh Mejia MD Attending Provider Active Start: April 06, 2025 End: April 06, 2025 Dr. Ashleigh Mejia MD Referring Provider Active Start: April 06, 2025 End: April 06, 2025 Team Status: Active Member Role/Relationship Status Dates Dr. Dania Whitfield DO Primary care physician Activ e Team Status: Active Member Role/Relationship Status Dates Dr. Dania Whitfield DO Primary care physician Activ e Start: August 14, 2025 Health Risk Assessment Attending physician Active Start: August 14, 2025 Team Status: Inactive Member Role/Relationship Status Dates Dr. Dania Whitfield DO Primary care physician Activ e Start: September 02, 2025 End: September 02, 2025 Dr. Dilshad Jones , DO Emergency Departme nt Physician Active Start: September 02, 2025 End: September 02, 2025 Dr. Luz Elena Bush , DO Attending physician Active Start: September 02, 2025 End: September 02, 2025 Team Status: Active Member Role/Relationship Status Dates Dr. Dania Whitfield DO Primary care physician Activ e Start: September 02, 2025 Dr. Dilshad Jones , DO Emergency Departme nt Physician Active Start: September 02, 2025 Dr. Luz Elena Bush DO Attending physician Active Start: September 02, 2025 Dr. Luz Elena Bush , DO Nurse Practitioner Active Start: September 02, 2025 Team Status: Active Member Role/Relationship Status Dates Dr. Dania Whitfield DO Primary care physician Activ e Start: September 11, 2025 Sukh PA MD Attending physician Active Start: September 11, 2025 Sukh PA MD Referring Provider Active S tart: September 11, 2025 Team Status: Inactive Member Role/Relationship Status Dates Dr. Dania Whitfield DO Primary care physician Activ e Start: September 13, 2025 End: September 13, 2025 Dr. Dania Whitfield DO Referring Provider Active Start: September 13, 2025 End: September 13, 2025 Dr. Luz Elena Bush DO Attending physician Acti ve Start: September 13, 2025 End: September 13, 2025 FOR RECORDS PERTAINING TO PATIENTS WHO ARE OR HAVE BEEN ENROLLED IN A CHEMICAL DEPENDENCY/SUBSTANCEABUSE PROGRAM, SOME INFORMATION MAY BE OMITTED. This clinical summary was aggregated from multiple sources. Caution should be exercised in using it in the provision of clinical care. This summary normalizes information from multiple sources, and as a consequence, information in this document may materially change the coding, format and clinical context of patient data. In addition, data may be omitted in some cases. CLINICAL DECISIONS SHOULD BE BASED ON THE PRIMARY CLINICAL RECORDS. [facility] [employer] [facility]. provides no warranty or guarantee of the accuracy or completeness of information in this document.
== END | disposition home or self-care (01) ==
LOC: RAD 11:53
PROVIDERS: PCP Internal Medicine; Referring Provider Obstetrics & Gynecology; Visit Provider Obstetrics & Gynecology
DX: O00.90 Unspecified ectopic pregnancy without intrauterine pregnancy (principal); O99.891 Other specified diseases and conditions complicating pregnancy; N97.0 Female infertility associated with anovulation
CPT/HCPCS: 58340; 74740; Q9967